=== PATIENT | female | born 2000 | race Caucasian/White ===

== ENCOUNTER 2020-09-10 08:14 | Outpatient (REF) | payer OTHER, SELFPAY | END 2020-09-10 08:15 | disposition home or self-care (01) | LOC: HO.LAB 08:14 | PROVIDERS: Visit Provider Internal Medicine | DX: Z20.828 Contact with and (suspected) exposure to other viral communicable diseases (principal) | CPT/HCPCS: 87635 ==

== ENCOUNTER 2020-09-21 20:59 | Emergency (ER) | payer OTHER, SELFPAY ==
[2020-09-21 21:03] VITALS: BP 144/89; PULSE 109; RESP 20; TEMP 36.5; O2SAT 100; BMI 51.6
--- NOTE | 2020-09-21 21:38 | PC.NURSE ---
Provider at bedside with patient for evaluation
--- NOTE | 2020-09-21 21:51 | ED.ABDPAIN ---
HPI - Abdominal Pain General Chief Complaint: Abdominal Pain Stated Complaint: Abdominal Pain Time Seen by Provider: 09/21/20 22:19 Source: patient Mode of arrival: ambulatory Limitations: no limitations History of Present Illness HPI narrative: patient presents to the ED for epigastric/right upper quadrant pain that occurred 1/2 hour ago before coming to the ED. Patient states no chest pain or shortness of breath. Patient states nausea, but no vomiting. Patient states symptoms occurred after eating Filipino fries and eggs. Patient states no lower abdominal pain, dysuria, hematuria, flank pain, fever, or chills. MD elicited complaint: abdominal pain Related Data Home Medications Medication Instructions Recorded Confirmed cholecalciferol (vitamin D3) 1 tab PO DAILY 09/21/20 09/21/20 desogestrel-ethinyl estradiol 1 tab PO DAILY 09/21/20 09/21/20 [Apri] Previous Rx's Medication Instructions Recorded alum-mag hydroxide-simeth [Maalox 10 ml PO Q6H PRN #3000 ml 09/22/20 Advanced] famotidine [Pepcid] 20 mg PO BID #20 tab 09/22/20 Allergies Allergy/AdvReac Type Severity Reaction Status Date / Time Penicillins Allergy Unknown Verified 09/21/20 21:11 Review of Systems Review of Systems Yes all other systems are reviewed and are negative Constitutional: Reports as per HPI and Reports no additional constitutional complaints Eyes: Reports as per HPI and Reports no additional eye complaints Reports system reviewed and no additional complaints, except as documented and Reports as per HPI Cardiovascular: Reports as per HPI and Reports no additional cardiovascular complaints Respiratory: Reports as per HPI and Reports no additional respiratory complaints Gastrointestinal: Reports abdominal pain and Reports nausea Genitourinary: Reports no additional female genitourinary complaints, Reports as per HPI, Denies difficulty conceiving, Denies urinary frequency, Denies difficulty voiding, Denies menorrhagia, Denies dysuria, Denies pelvic pain, Denies urinary urgency, Denies vaginal discharge and Denies vaginal dryness Musculoskeletal: Reports no additional musculoskeletal complaints and Reports as per HPI Reports system reviewed and no additional complaints, except as documented and Reports as per HPI Psychiatric: Reports no additional psychiatric complaints and Reports as per HPI Physical Exam Vital Signs: Vital Signs: Last Vital Signs Temp 97.7 F 09/21/20 21:03 Pulse 86 09/21/20 22:08 Resp 15 09/21/20 22:08 BP 126/72 09/22/20 00:00 Pulse Ox 98 09/22/20 00:00 Body Mass Index 51.6 Const: General: cooperative, healthy appearing, comfortable, no acute distress, well developed and alert Orientation/consciousness: patient oriented x3 HENMT: Head: Yes normal to inspection and Yes No palpable skull fracture present Eyes: General: appearance normal, both eyes and all related structures Visual Ribera: normal visual ribera by confrontation Neck: Neck: Yes normal visual inspection, Yes full ROM, Yes no lymphadenopathy, Yes no meningeal signs and Yes trachea midline Chest: Chest palpation & inspection: normal inspection of the chest, normal palpation of entire chest wall and no localized rib tenderness Resp: Effort & Inspection: normal respiratory effort, able to speak in complete sentences, normal respiratory pattern, no audible wheezes and no cough Auscultation: clear to auscultation bilaterally, no crackles, no rales, no rhonchi, no wheezes and breath sounds present Cardio: Jugular venous distension: no JVD Heart sounds: S1 normal heart sound present and S2 normal heart sound present GI: Inspection: Yes normal to inspection and No abdominal wall ecchymosis Palpation (GI): Tenderness to palpation present (GI) in the epigastrum and in the RUQ : General: No CVA tenderness and Yes no CVA tenderness Back/Spine/Pelvis: Back: no CVA tenderness, No CVA tenderness and No back tenderness Skin: General skin exam: no rashes or lesions noted Neuro: General: patient oriented x3, no meningeal signs and CN's II-XI intact bilaterally Cranial nerves: Yes CN's II-XII intact bilaterally Extrem: General: Yes full ROM Psych: Appearance: grossly normal and well kempt Course Course Course Narrative: history physical exam indicates GERD exacerbation possible gallstones. Patient will have labs and most likely imaging. Pending test. Reevaluation(s) Reevaluation #1: patient's labs show mild elevation in LFTs so she was sent for CT scan to rule out gallstones. Patient given GI cocktail in the meantime. Awaiting for UA results. Time: 22:01 Reevaluation #2: patient states abdominal pain resolved after receiving GI cocktail. Abdominal CT scan came back normal and negative for any acute etiology in abdomen or pelvis. Patient's UA negative for UTI. Diagnosis is GERD/gastritis. Time: 20:50 MDM - Abdominal Pain MDM Narrative Medical decision making narrative: GERD Lab Data Result diagrams: 09/21/20 22:01 09/21/20 22:01 Labs: Lab Results 09/21/20 09/21/20 09/21/20 Range/Units 22:01 22:01 22:01 WBC 11.5 H (4.8-10.8) X10*3/uL RBC 4.92 (4.20-5.50) X10*6/uL Hgb 11.8 L (12.0-16.0) g/dl Hct 39.0 (37-47) % MCV 79.3 L (80-98) fL MCH 24.0 L (27.0-33.0) pg MCHC 30.3 L (31.0-35.0) g/dl RDW 14.3 (11.0-16.0) % Plt Count 357 (160-400) X10*3/uL MPV 9.4 (9.4-12.3) fL Immature Gran % (Auto) 0.3 (0.0-0.4) % Neut % (Auto) 66.1 (45-73) % Lymph % (Auto) 27.8 (20-40) % Meagher % (Auto) 4.4 (2-11) % Eos % (Auto) 1.2 (0-4) % Baso % (Auto) 0.2 (0-2) % Lymph # (Auto) 3.2 (1.2-4.9) X10*3/uL Meagher # (Auto) 0.5 (0.1-1.2) X10*3/uL Eos # (Auto) 0.1 (0.0-0.4) X10*3/uL Baso # (Auto) 0.0 (0.0-0.2) X10*3/uL Abs Immat Gran (auto) 0.04 H (0.00-0.03) X10*3/uL Absolute Neuts (auto) 7.6 (2.0-8.3) X10*3/uL Absolute Nucleated RBC 0.000 (0.0-0.012) X10*3/uL Nucleated RBC % (auto) 0.0 (0.0-0.2) /100WBC PT 13.4 H (10.8-13.0) SEC INR 1.1 (0.9-1.1) APTT 39.7 H (24.1-38.0) SEC Sodium 140 (135-145) mmol/L Potassium 4.2 (3.3-5.1) mmol/l Chloride 102 (96-108) mmol/L Carbon Dioxide 31 H (22-29) mmol/L Anion Gap 11 L (12-20) BUN 10 (9-16) mg/dL Creatinine 0.79 (0.5-1.4) mg/dL Estim Creat Clear Calc 166.5 Estimated GFR > 60 Random Glucose 114 (60-115) mg/dL Calcium 8.9 (8.4-10.2) mg/dL Total Bilirubin 0.6 (0.0-1.0) mg/dL Direct Bilirubin 0.4 (0.0-0.5) mg/dL AST 105 H (5-31) U/L ALT 53 H (0-31) U/L Alkaline Phosphatase 123 H (39-117) U/L Total Protein 7.3 (6.5-8.0) g/dL Albumin 4.0 (3.5-5.0) g/dL Lipase 21 (8-78) U/L Beta HCG, Quant < 2 mIU/mL Urine Color Urine Appearance Urine pH (5.0-8.0) Ur Specific [place] (1.005-1.025) Urine Protein (NEG-TRACE) MG/DL Urine Glucose (UA) (NEG) MG/DL Urine Ketones (NEG) MG/DL Urine Blood (NEG) Urine Nitrite (NEG) Ur Leukocyte Esterase (NEG) 09/22/20 Range/Units 00:22 WBC (4.8-10.8) X10*3/uL RBC (4.20-5.50) X10*6/uL Hgb (12.0-16.0) g/dl Hct (37-47) % MCV (80-98) fL MCH (27.0-33.0) pg MCHC (31.0-35.0) g/dl RDW (11.0-16.0) % Plt Count (160-400) X10*3/uL MPV (9.4-12.3) fL Immature Gran % (Auto) (0.0-0.4) % Neut % (Auto) (45-73) % Lymph % (Auto) (20-40) % Meagher % (Auto) (2-11) % Eos % (Auto) (0-4) % Baso % (Auto) (0-2) % Lymph # (Auto) (1.2-4.9) X10*3/uL Meagher # (Auto) (0.1-1.2) X10*3/uL Eos # (Auto) (0.0-0.4) X10*3/uL Baso # (Auto) (0.0-0.2) X10*3/uL Abs Immat Gran (auto) (0.00-0.03) X10*3/uL Absolute Neuts (auto) (2.0-8.3) X10*3/uL Absolute Nucleated RBC (0.0-0.012) X10*3/uL Nucleated RBC % (auto) (0.0-0.2) /100WBC PT (10.8-13.0) SEC INR (0.9-1.1) APTT (24.1-38.0) SEC Sodium (135-145) mmol/L Potassium (3.3-5.1) mmol/l Chloride (96-108) mmol/L Carbon Dioxide (22-29) mmol/L Anion Gap (12-20) BUN (9-16) mg/dL Creatinine (0.5-1.4) mg/dL Estim Creat Clear Calc Estimated GFR Random Glucose (60-115) mg/dL Calcium (8.4-10.2) mg/dL Total Bilirubin (0.0-1.0) mg/dL Direct Bilirubin (0.0-0.5) mg/dL AST (5-31) U/L ALT (0-31) U/L Alkaline Phosphatase (39-117) U/L Total Protein (6.5-8.0) g/dL Albumin (3.5-5.0) g/dL Lipase (8-78) U/L Beta HCG, Quant mIU/mL Urine Color STRAW Urine Appearance CLEAR Urine pH 7.5 (5.0-8.0) Ur Specific [place] 1.010 (1.005-1.025) Urine Protein NEG (NEG-TRACE) MG/DL Urine Glucose (UA) NEG (NEG) MG/DL Urine Ketones NEG (NEG) MG/DL Urine Blood NEG (NEG) Urine Nitrite NEG (NEG) Ur Leukocyte Esterase NEG (NEG) Discharge Plan Discharge Clinical Impression: Gastroesophageal reflux disease Patient Disposition: Home, Self-Care Instructions: Gastritis (ED), Gastroesophageal Reflux Disease (ED) Additional Instructions: please return to the ED immediately for worsening abdominal pain, nausea, vomiting, fever, chills, flank pain, dysuria, hematuria, chest pain, shortness of breath, or any other concerning symptoms. Please follow-up with the PCP. Prescriptions: New famotidine [Pepcid] 20 mg tablet 20 mg PO BID Qty: 20 RF: 0 alum-mag hydroxide-simeth [Maalox Advanced] 200-200-20 mg/5 mL suspension 10 ml PO Q6H PRN (Reason: dyspepsia) Qty: 3000 RF: 0 No Action desogestrel-ethinyl estradiol [Apri] 0.15-0.03 mg tablet 1 tab PO DAILY RF: 0 cholecalciferol (vitamin D3) 50 mcg (2,000 unit) tablet 1 tab PO DAILY RF: 0 Interventions: ED Discharge Assessment Last Done: 09/22/20 01:13 Print Language: Luxembourgish [facility] Past Medical History Medical History (Updated 09/22/20 @ 01:01 by TYRA Fournier) No known health problems Social History Social History Alcohol intake: never Smoking Status: Never smoker Use of substances other than those prescribed or required for medical reasons: No Advance Directives: No
[2020-09-21 22:08] VITALS: BP 90/49; PULSE 86; RESP 15; O2SAT 98
[2020-09-21 22:08] LABS: Basophils Percent Auto 0.2 % (0-2); Eosinophils Absolute Auto 0.1 X10*3/uL (0.0-0.4); Eosinophils Percent Auto 1.2 % (0-4); Hemoglobin 11.8 g/dl (12.0-16.0); Imm Gran Abs Auto 0.04 X10*3/uL (0.00-0.03); Imm Gran Pct Auto 0.3 % (0.0-0.4); Lymphocytes Absolute Auto 3.2 X10*3/uL (1.2-4.9); Lymphocytes Percent Auto 27.8 % (20-40); MANUAL DIFF FLAG NO; Mean Corpuscular HGB Conc 30.3 g/dl (31.0-35.0); Mean Corpuscular Volume 79.3 fL (80-98); Mean Platelet Volume 9.4 fL (9.4-12.3); Monocytes Absolute Auto 0.5 X10*3/uL (0.1-1.2); Monocytes Percent Auto 4.4 % (2-11); Neutrophils Absolute Auto 7.6 X10*3/uL (2.0-8.3); Neutrophils Percent Auto 66.1 % (45-73); Platelet Count 357 X10*3/uL (160-400); Red Blood Count 4.92 X10*6/uL (4.20-5.50); Red Cell Distribution Width 14.3 % (11.0-16.0); White Blood Count 11.5 X10*3/uL (4.8-10.8)
[2020-09-21 22:13] LABS: INTERNATIONAL NORM RATIO 1.1 (0.9-1.1); Prothrombin Time 13.4 SEC (10.8-13.0)
[2020-09-21] MEDS: Magnesium Hydrox/Alum Hydrox 30 ML ORAL.SUSP PO (22:15)
[2020-09-21] MEDS: PHENobarb/Hyoscy/Atropine/Scop 10 ML ELIXIR PO (22:15)
[2020-09-21] MEDS: Lidocaine HCl Viscous 2 % 15 ML SOLUTION MUCOUS MEM (22:15)
[2020-09-21] MEDS: Famotidine/PF 20 MG/2 ML VIAL IVPUSH (22:15)
[2020-09-21 22:16] LABS: Partial Thromboplastin Time 39.7 SEC (24.1-38.0)
[2020-09-21] MEDS: ondansetron HCL 4 MG/2 ML VIAL IVPUSH (22:16)
[2020-09-21 22:36] LABS: Alanine Aminotransferase 53 U/L (0-31); Alkaline Phosphatase 123 U/L (39-117); Anion Gap 11 (12-20); Aspartate Amino Transferase 105 U/L (5-31); Bilirubin Direct 0.4 mg/dL (0.0-0.5); Bilirubin Total 0.6 mg/dL (0.0-1.0); Blood Urea Nitrogen 10 mg/dL (9-16); Calcium 8.9 mg/dL (8.4-10.2); Carbon Dioxide 31 mmol/L (22-29); Chloride 102 mmol/L (96-108); Creatinine Clr Calc Pharmacy 166.5; Estimated Glomerular Filt Rate > 60; Glucose Random 114 mg/dL (60-115); Lipase 21 U/L (8-78); Potassium 4.2 mmol/l (3.3-5.1); Sodium 140 mmol/L (135-145); Total Protein 7.3 g/dL (6.5-8.0)
[2020-09-21 22:41] LABS: HCG Quantitative < 2 mIU/mL
[2020-09-21] MEDS: 0.9 % Sodium Chloride 1,000 ML 999 ML IVCONT (22:48)
--- NOTE | 2020-09-21 23:00 | CT_ITS ---
EXAMINATION: CT ABDOMEN AND PELVIS WITH CONTRAST CLINICAL INFORMATION: Right upper quadrant pain. COMPARISON: None. TECHNIQUE: Contiguous axial thin section helical images of the abdomen and pelvis were performed following the administration of 100 mL of intravenous Omnipaque 300. The data set was reformatted in the coronal and sagittal planes and reviewed on an independent workstation. DLP: 164 mGy-cm. FINDINGS: The visualized lung bases are clear. The visualized portions of the heart are unremarkable. The liver is of normal size and attenuation without focal lesions nor intrahepatic biliary ductal dilation. A normal gallbladder is identified. There is no wall thickening or discernible pericholecystic fluid. The spleen, pancreas, adrenal glands are unremarkable. Both kidneys are of normal size and attenuation without hydronephrosis or nephrolithiasis. Following the administration of IV contrast, prompt symmetric nephrograms are displayed. There is no abdominal free fluid. There is neither mesenteric nor retroperitoneal lymphadenopathy. Normal unopacified loops of small and large bowel are identified. There is no pelvic free fluid. The urinary bladder is unremarkable. There is neither pelvic nor inguinal lymphadenopathy. Bone windows: Neither sclerotic nor lytic bone lesions are identified. CT/CT abdomen pelvis w con IMPRESSION: No evidence for acute abdominal or pelvic inflammatory or infectious processes. Automated exposure control (Care Dose) Adjustment of the mA and/or kv according to patient size (this includes techniques or standardized protocols for targeted exams where dose is matched to indication / reason for exam; i.e. extremities or head).
[2020-09-21] MEDS: iohexoL 350 MG/ML 100 ML INFUS..BTL IV (23:20)
[2020-09-22] VITALS: BP 126/72; O2SAT 98
[2020-09-22 00:29] LABS: Glucose Urine UA NEG (NEG); Leukocyte Esterase Urine NEG (NEG); Nitrite Urine NEG (NEG); PH 7.5 (5.0-8.0); Urine Blood NEG (NEG); Urine Ketones NEG (NEG); Urine Protein NEG (NEG-TRACE)
[2020-09-22 00:30] LABS: Appearance Urine CLEAR; Color Urine STRAW; UACC Culture Trigger NO
== END 2020-09-22 01:20 | disposition home or self-care (01) ==
PROVIDERS: Physician Assistant; Emergency Provider Emergency Medicine
DX: K21.9 Gastro-esophageal reflux disease without esophagitis (principal); R10.11 Right upper quadrant pain; Z79.899 Other long term (current) drug therapy
CPT/HCPCS: 36415; 74177; 80053; 80076; 81003; 82248; 83690; 84702; 85025; 85610; 85730; 96361; 96374; 96375; 99284; J2405; Q9967

== ENCOUNTER 2020-10-26 01:41 | Emergency (ER) | payer OTHER, SELFPAY ==
[2020-10-26 01:48] VITALS: BP 161/83; PULSE 99; RESP 18; O2SAT 99; BMI 46.8
--- NOTE | 2020-10-26 03:05 | ED_ITS ---
HPI - Female Genitourinary General Chief complaint: Vaginal Bleeding Stated complaint: vag bleed Time Seen by Provider: 10/26/20 03:04 Source: patient Mode of arrival: ambulatory Limitations: no limitations History of Present Illness HPI Narrative: This is a 20-year-old female who states that her menstrual cycle started approximately 3 days ago and has concerns because she states that it is much heavier than usual with a lot of large clots that has required her to use anywhere from 6-8 pads a day as well as experiencing worsening menstrual cramps over the past 24 hours prompting her to treat herself with Aleve that has had varying improvement of her symptoms. This has not been associated with any fevers, chills, nausea, vomiting, or diarrhea. Related Data Home Medications Medication Instructions Recorded Confirmed cholecalciferol (vitamin D3) 1 tab PO DAILY 09/21/20 09/21/20 desogestrel-ethinyl estradiol 1 tab PO DAILY 09/21/20 09/21/20 [Apri] Previous Rx's Medication Instructions Recorded alum-mag hydroxide-simeth [Maalox 10 ml PO Q6H PRN #3000 ml 09/22/20 Advanced] famotidine [Pepcid] 20 mg PO BID #20 tab 09/22/20 Allergies Allergy/AdvReac Type Severity Reaction Status Date / Time Penicillins Allergy Unknown Verified 10/26/20 01:52 Review of Systems Review of Systems: Pertinent positives and negatives as stated in HPI 10 point review of systems is otherwise negative. PMFSH Past Medical History Source: nursing notes reviewed Medical History No known health problems Social History Social History Alcohol intake: never Smoking Status: Never smoker Advance Directives: No Physical Exam Vital Signs: Vital Signs: Last Vital Signs Pulse 99 10/26/20 01:48 Resp 18 10/26/20 01:48 BP 161/83 H 10/26/20 01:48 Pulse Ox 99 10/26/20 01:48 Body Mass Index 46.8 VITAL SIGNS: Reviewed. GENERAL: Well developed, well nourished, in no acute distress. HEAD: Normocephalic/atraumatic, EYES: PERRLA, EOMI intact without pain, no nystagmus/pallor/icterus noted EARS: Ext canals without abnormality, TMs non-bulging and non-erythematous NOSE: Nares patent bilateral OROPHARYNX: no oral lesions noted, posterior pharynx clear and non-erythematous without noted tonsillar enlargement/erythema/exudates NECK: Supple, no adenopathy LUNGS: Normal breath sounds. No adventitious sounds or accessory muscle use. SpO2<99> CARDIOVASCULAR: Regular rate and rhythm without noted murmurs, no JVD or lower extremity edema. ABDOMEN: Obese, Soft, non-tender, non-distended with bowel sounds. No rigidity. No guarding. No palpable masses or hernias noted MUSCULOSKELETAL: No tenderness, deformities, or effusions noted on gross inspection. EXTREMITIES: No cyanosis, clubbing or edema. SKIN: Inspection of the skin reveals no rashes, ulcerations, jaundice, pallor, or petechiae. NEUROLOGIC: Alert and oriented x 4. Strength and sensation to light touch were grossly intact x 4. Course Course Course Narrative: This is a 20-year-old female with history and clinical presentation suggestive of possible menstrual related cramps with normal variation in menstrual bleeding, but will rule out UTI and as well as offering combination analgesics for symptom relief. On review urinalysis there is no evidence of UTI and the blood in the urine is secondary to menstrual bleeding and urine test is negative. On further questioning patient states that she recently restarted her oral contraceptive and it was explained to her that this is likely the reason for her heavier than usual menstrual bleeding. She states her pain has almost completely resolved and she feels much better. MDM - Female Genitourinary Lab Data Labs: Lab Results 10/26/20 Range/Units 03:02 Urine Color BRANDON Urine Appearance CLOUDY Urine pH 5.0 (5.0-8.0) Ur Specific [place] >= 1.030 H (1.005-1.025) Urine Protein 2+ H (NEG-TRACE) MG/DL Urine Glucose (UA) NEG (NEG) MG/DL Urine Ketones NEG (NEG) MG/DL Urine Blood 3+ H (NEG) Urine Nitrite NEG (NEG) Ur Leukocyte Esterase NEG (NEG) Urine RBC 76-150 H (0) /HPF Urine WBC 1-4 (0-4) /HPF Ur Squamous Epith Cells 1+ /LPF Calcium Oxalate Crystal 2+ /LPF Urine Bacteria 1+ /LPF Urine Mucus 1+ /LPF Urine Test NEGATIVE (NEGATIVE) Discharge Plan Discharge Clinical Impression: Dysfunctional uterine bleeding Patient Disposition: Home, Self-Care Instructions: Dysfunctional Uterine Bleeding (ED) Additional Instructions: 1. Tylenol 1000 mg, orally, every 6 hours as needed for pain control. Do not exceed 4000 mg within 24 hours. 2. Ibuprofen 400 mg, orally with milk or food, every 6 hours as needed for pain control. 3. You may use a heating pad additionally for symptom control. 4. Increase fluid hydration especially with water. 5. Please follow-up with your primary care provider by calling the office in the morning for re-evaluation and further outpatient management. Prescriptions: No Action desogestrel-ethinyl estradiol [Apri] 0.15-0.03 mg tablet 1 tab PO DAILY RF: 0 cholecalciferol (vitamin D3) 50 mcg (2,000 unit) tablet 1 tab PO DAILY RF: 0 famotidine [Pepcid] 20 mg tablet 20 mg PO BID Qty: 20 RF: 0 alum-mag hydroxide-simeth [Maalox Advanced] 200-200-20 mg/5 mL suspension 10 ml PO Q6H PRN (Reason: dyspepsia) Qty: 3000 RF: 0 Referrals: [facility] [Primary Care Provider] - 2 days (Re-evaluation outpatient management of heavy menstrual bleeding.)
[2020-10-26 03:10] LABS: Appearance Urine CLOUDY; Color Urine AMBER; Glucose Urine UA NEG (NEG); Leukocyte Esterase Urine NEG (NEG); Nitrite Urine NEG (NEG); Specific Gravity - Urine >= 1.030 (1.005-1.025); Urine Blood 3+ (NEG); Urine Ketones NEG (NEG); Urine Protein 2+ MG/DL (NEG-TRACE)
[2020-10-26 03:11] LABS: UPreg QC Valid YES; Urine Pregnancy NEGATIVE (NEGATIVE)
[2020-10-26 03:16] LABS: Bacteria Urine 1+ /LPF; Mucus Urine 1+ /LPF; Squamous Epithelial Cell Urine 1+ /LPF
[2020-10-26 03:17] LABS: Calcium Oxalate Crystals Urine 2+ /LPF
[2020-10-26] MEDS: Acetaminophen 325 MG TABLET 975 MG PO (03:37)
[2020-10-26] MEDS: Ketorolac Tromethamine 15 MG/ML VIAL IM (03:38)
== END 2020-10-26 04:45 | disposition home or self-care (01) ==
PROVIDERS: Emergency Provider Student in an Organized Health Care Education/Training Program
DX: N93.8 Other specified abnormal uterine and vaginal bleeding (principal)
CPT/HCPCS: 81001; 81025; 96372; 99283; 99284; J1885

== ENCOUNTER 2020-10-29 21:56 | Emergency (ER) | payer OTHER, SELFPAY ==
[2020-10-29 21:59] VITALS: BP 159/94; PULSE 89; RESP 15; TEMP 36.4; O2SAT 99; BMI 48.2
--- NOTE | 2020-10-29 22:50 | ED_ITS ---
HPI - Nausea/Vomiting/Diarrhea General Chief complaint: Nausea/Vomiting/Diarrhea Stated complaint: Vomiting Time Seen by Provider: 10/29/20 21:57 Source: patient Mode of arrival: ambulatory Limitations: no limitations History of Present Illness HPI Narrative: This is a 20-year-old female who presents with onset of nausea and vomiting today not associated with any fever, chills, diarrhea, urinary pain/burning/frequency. And she states she was evaluated at [facility] earlier in the day where she received antiemetics but no IV fluids and lab work was completed there that time. She states she was able to warp picker the prescription that she was provided for Reglan but was unable to take the medication because she was ?so nauseous?. She denies any abdominal discomfort. Related Data Home Medications Medication Instructions Recorded Confirmed cholecalciferol (vitamin D3) 1 tab PO DAILY 09/21/20 10/29/20 desogestrel-ethinyl estradiol 1 tab PO DAILY 09/21/20 10/29/20 [Apri] Previous Rx's Medication Instructions Recorded famotidine [Pepcid] 20 mg PO BID #20 tab 09/22/20 omeprazole 40 mg PO BID 30 Days #60 cap 10/29/20 Allergies Allergy/AdvReac Type Severity Reaction Status Date / Time Penicillins Allergy Unknown Verified 10/26/20 01:52 Review of Systems Review of Systems: For note positives and negatives as stated in HPI 10 point review of systems otherwise negative. [facility] Past Medical History Source: nursing notes reviewed Medical History No known health problems Social History Social History Alcohol intake: never Smoking Status: Never smoker Advance Directives: No Physical Exam Vital Signs: Vital Signs: Last Vital Signs Temp 97.6 F 10/29/20 21:59 Pulse 89 10/29/20 21:59 Resp 15 10/29/20 21:59 BP 159/94 H 10/29/20 21:59 Pulse Ox 99 10/29/20 21:59 Body Mass Index 48.2 VITAL SIGNS: Reviewed. GENERAL: Well developed, well nourished, in no acute distress. HEAD: Normocephalic/atraumatic, EYES: PERRLA, EOMI intact without pain, no nystagmus/pallor/icterus noted EARS: Ext canals without abnormality, TMs non-bulging and non-erythematous NOSE: Nares patent bilateral OROPHARYNX: no oral lesions noted, posterior pharynx clear and non-erythematous without noted tonsillar enlargement/erythema/exudates NECK: Supple, no adenopathy LUNGS: Normal breath sounds. No adventitious sounds or accessory muscle use. SpO2<99> CARDIOVASCULAR: Regular rate and rhythm without noted murmurs, no JVD or lower extremity edema. ABDOMEN: Soft, non-tender, non-distended with bowel sounds. No rigidity. No gua rding. No palpable masses or hernias noted MUSCULOSKELETAL: No tenderness, deformities, or effusions noted on gross inspection. EXTREMITIES: No cyanosis, clubbing or edema. SKIN: Inspection of the skin reveals no rashes, ulcerations, jaundice, pallor, or petechiae. NEUROLOGIC: Alert and oriented x 4. Strength and sensation to light touch were grossly intact x 4. Course Course Course Narrative: Is a 20-year-old female with history and clinical presentation most consistent with likely nausea and vomiting associated with gastritis and NSAID use. On record request from [facility] and review of lab work there there were no acute findings today to include negative urinalysis and urine . Patient improved after receiving sublingual Zofran as well as a GI cocktail. She was provided a p.o. challenge which she successfully completed. All results and findings as well as the plan was discussed with the patient at bedside. Discharge Plan Discharge Clinical Impression: Gastritis Qualifiers: Gastritis type: other gastritis Chronicity: chronic Gastritis bleeding: without bleeding Qualified Code(s): K29.50 - Unspecified chronic gastritis without bleeding Acid reflux Qualifiers: Esophagitis presence: without esophagitis Qualified Code(s): K21.9 - Gastro- esophageal reflux disease without esophagitis Patient Disposition: Home, Self-Care Instructions: Gastritis (ED), Diet for Stomach Ulcers and Gastritis (ED) Additional Instructions: 1. Stop Pepcid/Famotidine 2. Stop Ibuprofen, Motrin, Aleve 3. Increase fluid hydration, especially with water Prescriptions: New omeprazole 40 mg capsule,delayed release(DR/EC) 40 mg PO BID 30 Days Qty: 60 RF: 0 No Action desogestrel-ethinyl estradiol [Apri] 0.15-0.03 mg tablet 1 tab PO DAILY RF: 0 cholecalciferol (vitamin D3) 50 mcg (2,000 unit) tablet 1 tab PO DAILY RF: 0 famotidine [Pepcid] 20 mg tablet 20 mg PO BID Qty: 20 RF: 0
[2020-10-29] MEDS: Magnesium Hydrox/Alum Hydrox 30 ML ORAL.SUSP PO (23:36)
[2020-10-29] MEDS: Lidocaine HCl Viscous 2 % 15 ML SOLUTION 10 ML MUCOUS MEM (23:36)
[2020-10-30] VITALS: BP 140/82; PULSE 80; RESP 16; TEMP 36.7; O2SAT 99
== END 2020-10-30 00:57 | disposition home or self-care (01) ==
PROVIDERS: Emergency Provider Student in an Organized Health Care Education/Training Program
DX: K29.50 Unspecified chronic gastritis without bleeding (principal); K21.9 Gastro-esophageal reflux disease without esophagitis; R11.2 Nausea with vomiting, unspecified; Z79.899 Other long term (current) drug therapy
CPT/HCPCS: 99284

== ENCOUNTER 2021-04-16 15:30 | Outpatient (REF) | payer OTHER, SELFPAY ==
--- NOTE | ~2021-04-16 | US_ITS ---
EXAMINATION:US pelvic limited, patient declined transvaginal exam. CLINICAL INFORMATION: Reason for Exam OLIGOMENORRHEA COMPARISON: No priors available. LMP: 11/01/2020 FINDINGS: UTERUS: The uterus is anteverted. Size: 5.6 x 2.4 x 4.2 cm. Uterine mass: There is no uterine mass. Cervix: Grossly unremarkable. Endometrium: Endometrium was not well visualized transabdominally. ADNEXA: Normal Right ovary: Normal in size. Left ovary: Normal in size. Doppler exam: Normal Doppler flow identified in both ovaries. FREE FLUID: Trace amount of free fluid. OTHER FINDINGS: None US/US pelvic limited IMPRESSION: Study limited by patient's body habitus, patient declined transvaginal ultrasound. Endometrium not well visualized. Exam otherwise normal.
== END 2021-04-16 15:31 | disposition home or self-care (01) ==
LOC: HO.HMGCX 15:30
PROVIDERS: Visit Provider Nurse Practitioner Family
DX: N91.5 Oligomenorrhea, unspecified (principal)
CPT/HCPCS: 76857

== ENCOUNTER 2021-05-21 14:42 | Emergency (ER) | payer OTHER, SELFPAY ==
--- NOTE | ~2021-05-21 | XR_ITS ---
EXAMINATION: XR CHEST CLINICAL INFORMATION: Lightheadedness COMPARISON: None TECHNIQUE: Portable upright AP view of the chest was obtained. FINDINGS: There are low lung volumes with inspiration to only the right posterior seventh rib. The lungs are grossly clear. The vascularity is normal. There is no pneumothorax or lobar segmental airspace consolidation. No effusion. Heart is normal in size. The hilar and mediastinal contours are normal. XR/XR chest 1V IMPRESSION: Low lung volumes. Lungs grossly clear.
[2021-05-21 15:05] VITALS: BP 136/72; PULSE 98; RESP 16; TEMP 36.6; O2SAT 98; BMI 61.3
--- NOTE | 2021-05-21 16:26 | ECG_ITS ---
Test Reason : DIZZINESS Blood Pressure : / mmHG Vent. Rate : 085 BPM Atrial Rate : 085 BPM P-R Int : 150 ms QRS Dur : 076 ms QT Int : 348 ms P-R-T Axes : 021 032 019 degrees QTc Int : 414 ms Normal sinus rhythm Normal ECG When compared with ECG of 15-FEB-2020 01:19, No significant change was found Referred By: Missy Raymond Electronically Signed By:PETR JEAN
[2021-05-21 16:35] VITALS: BP 126/78; PULSE 86
[2021-05-21 16:36] VITALS: BP 137/77; PULSE 96
[2021-05-21 16:37] VITALS: BP 128/77; PULSE 101
[2021-05-21 16:38] VITALS: BP 128/77; PULSE 93; RESP 16; TEMP 36.6; O2SAT 99
--- NOTE | 2021-05-21 16:41 | ED.DIZZY ---
HPI - Dizziness General Chief Complaint: Dizziness <TYRA Moreno - Last Filed: 05/21/21 18:31> Stated Complaint: dizziness <TYRA Moreno Last Filed: 05/21/21 18:31> Time Seen by Provider: 05/21/21 16:10 <TYRA Moreno - Last Filed: 05/21/21 18:31> Source: patient <TYRA Moreno Last Filed: 05/21/21 18:31> Mode of arrival: ambulatory <TYRA Moreno Last Filed: 05/21/21 18:31> History of Present Illness HPI Narrative: 21-year-old female with no significant past medical history to the ED complaining of generalized fatigue/lightheadedness x3 days. Reports 1st day with CP, headache, and chills described as an anxiety/panic attack which has since resolved, now described as not feeling right . Denies room spinning dizziness or syncope. Denies headache, visual loss, CP/SOB, abdominal pain, nausea/vomiting, numbness/tingling, recent travel, sick contacts. Admits took at home tests yesterday which is negative <TYRA Moreno - Last Filed: 05/21/21 18:31> MD elicited complaint: lightheadedness <TYRA Moreno Last Filed: 05/21/21 18:31> Related Data Home Medications: Home Medications Medication Instructions Recorded Confirmed cholecalciferol (vitamin D3) 1 tab PO DAILY 09/21/20 10/29/20 desogestrel-ethinyl estradiol 1 tab PO DAILY 09/21/20 10/29/20 [Apri] Previous Rx's Medication Instructions Recorded famotidine [Pepcid] 20 mg PO BID #20 tab 09/22/20 omeprazole 40 mg PO BID 30 Days #60 cap 10/29/20 <TYRA Moreno Last Filed: 05/21/21 18:31> Allergies/Adverse Reactions: Allergies Allergy/AdvReac Type Severity Reaction Status Date / Time Penicillins Allergy Unknown Verified 05/21/21 15:09 <TYRA Moreno Last Filed: 05/21/21 18:31> Review of Systems Review of Systems: Constitutional: No Fever, + Chills(reolved), + Fatigue, No Malaise ENT/Mouth: +No Ear Pain, No Nasal Congestion, +No sore throat, No Rhinorrhea Eyes: No Eye Pain, No Vision Changes Cardiovascular: + Chest Pain (resolved), No SOB Respiratory: No Cough, No Dyspnea Gastrointestinal: No Nausea, No Vomiting, No Diarrhea, No Constipation, No Abdominal pain Genitourinary: No Dysuria, No Urinary Frequency, No Hematuria Musculoskeletal: No joint pain, No Myalgias, No Joint Swelling Skin: No Skin Lesions, No rash Neuro: No Weakness, No Numbness, No Paresthesias, No Loss of Consciousness, + lightheadedness, + Headache (resolved) <TYRA Moreno - Last Filed: 05/21/21 18:31> Yes all other systems are reviewed and are negative <TYRA Moreno - Last Filed: 05/21/21 18:31> Neurologic: Denies Abnormal speech present <TYRA Moreno - Last Filed: 05/21/21 18:31> FOR[facility]LY [facility] Past Medical History Attestation statement: The following information was validated with the patient. <TYRA Moreno - Last Filed: 05/21/21 18:31> Medical History: Medical History No known health problems <TYRA Moreno - Last Filed: 05/21/21 18:31> Social History Social History: Social History Alcohol intake: never Patient Tobacco Use Status: Never used Tobacco Use of substances other than those prescribed or required for medical reasons: No Advance Directives: Yes Advance Directives Information Provided: Yes Advance Directives on File: No Patient : No <TYRA Moreno - Last Filed: 05/21/21 18:31> Physical Exam Vital Signs: Vital Signs: Last Vital Signs Temp 97.9 F 05/21/21 16:38 Pulse 93 05/21/21 16:38 Resp 16 05/21/21 16:38 BP 128/77 05/21/21 16:38 Pulse Ox 99 05/21/21 16:38 Body Mass Index 61.3 <TYRA Moreno - Last Filed: 05/21/21 18:31> Vital Signs: Last Vital Signs Temp 97.9 F 05/21/21 16:38 Pulse 93 05/21/21 16:38 Resp 16 05/21/21 16:38 BP 128/77 05/21/21 16:38 Pulse Ox 99 05/21/21 16:38 Body Mass Index 61.3 <Jim Johnston MD - Last Filed: 05/22/21 02:00> Const: General: cooperative, healthy appearing and no acute distress <TYRA Moreno - Last Filed: 05/21/21 18:31> Orientation/consciousness: patient oriented x3 <TYRA Moreno - Last Filed: 05/21/21 18:31> Limitations: no limitations <TYRA Moreno - Last Filed: 05/21/21 18:31> HENMT: Head: Yes normal to inspection <TYRA Moreno - Last Filed: 05/21/21 18:31> Ears: hearing grossly normal bilaterally <TYRA Moreno - Last Filed: 05/21/21 18:31> General nose exam: Normal external nose present <TYRA Moreno - Last Filed: 05/21/21 18:31> Face and sinus: Yes normal facial exam <TYRA Moreno - Last Filed: 05/21/21 18:31> Eyes: General: appearance normal, both eyes and all related structures <TYRA Moreno - Last Filed: 05/21/21 18:31> EOM: EOMs intact bilaterally <TYRA Moreno - Last Filed: 05/21/21 18:31> Neck: Neck: Yes normal visual inspection and Yes no meningeal signs <TYRA Moreno - Last Filed: 05/21/21 18:31> Resp: Effort & Inspection: normal respiratory effort <TYRA Moreno - Last Filed: 05/21/21 18:31> Auscultation: clear to auscultation bilaterally, no rales, no rhonchi and no wheezes <TYRA Moreno - Last Filed: 05/21/21 18:31> Cardio: Rate: regular rate <TYRA Moreno - Last Filed: 05/21/21 18:31> Heart sounds: S1 normal heart sound present and S2 normal heart sound present <Missy Raymond PA - Last Filed: 05/21/21 18:31> GI: Inspection: Yes normal to inspection <Missy Raymond PA - Last Filed: 05/21/21 18:31> Palpation (GI): Soft to palpation, nontender, no guarding and not rigid <Missy Raymond PA - Last Filed: 05/21/21 18:31> Skin: Rashes: no rashes <Missy Segundo PA - Last Filed: 05/21/21 18:31> Wounds: no wounds <Missy Raymond, PA - Last Filed: 05/21/21 18:31> Neuro: General: patient oriented x3, gait normal, tone normal, moves all extremities, no meningeal signs, no focal motor deficits and CN's II-XI intact bilaterally <Missy Raymond PA - Last Filed: 05/21/21 18:31> Cranial nerves: Yes CN's II-XII intact bilaterally <Missy Segundo PA - Last Filed: 05/21/21 18:31> Cognition (Neuro): normal cognition <Missy Raymond PA - Last Filed: 05/21/21 18:31> Speech: No Abnormal speech present <Missy Clarkrosemary PA - Last Filed: 05/21/21 18:31> Gait exam (Neuro): Normal gait present <Missy Raymond PA - Last Filed: 05/21/21 18:31> Motor exam (neuro): 5/5 motor strength present throughout and Pronator motor function not present <Missy Segundo PA - Last Filed: 05/21/21 18:31> Coordination: [id number] test normal <Missy Segundo PA - Last Filed: 05/21/21 18:31> Romberg Test: Negative <Missy Segundo PA - Last Filed: 05/21/21 18:31> Extrem: General: Yes normal to inspection <Missy Segundo PA - Last Filed: 05/21/21 18:31> Course Course Course Narrative: -mild leukocytosis of 11.6, H&H at baseline, labs otherwise unremarkable including troponin -UA negative XR chest 1V IMPRESSION: Low lung volumes. Lungs grossly clear. -orthostatic vital signs negative >> results discussed with patient including worrisome signs and symptoms and strict return precautions, she verbalized understanding feel safe for discharge home to follow-up with PCP <TYRA Moreno - Last Filed: 05/21/21 18:31> MDM - Dizziness MDM Narrative Medical decision making narrative: 21-year-old female with no significant past medical history to the ED complaining of generalized fatigue/lightheadedness x3 days. Reports 1st day with CP, headache, and chills described as an anxiety/panic attack which has since resolved, now described as not feeling right . On exam VSS, NAD/nontoxic appearing, no focal neuro deficits. Concern for metabolic abnormalities vs dehydration. Rule out infectious etiology. Symptoms atypical for ACS/PE or CVT or BPPV. Plan: EKG, labs, UA, CXR, IVF, symptomatic treatment, reassess <TYRA Moreno - Last Filed: 05/21/21 18:31> Medical Records Attestation: I reviewed the patient's medical records. <TYRA Moreno - Last Filed: 05/21/21 18:31> Lab Data Attestation: I reviewed the patient's lab results. <TYRA Moreno - Last Filed: 05/21/21 18:31> Result diagrams: : 05/21/21 16:52 05/21/21 16:52 <TYRA Moreno - Last Filed: 05/21/21 18:31> Labs: Lab Results 05/21/21 05/21/21 05/21/21 Range/Units 16:48 16:49 16:49 WBC (4.8-10.8) X10*3/uL RBC (4.20-5.50) X10*6/uL Hgb (12.0-16.0) g/dl Hct (37-47) % MCV (80-98) fL MCH (27.0-33.0) pg MCHC (31.0-35.0) g/dl RDW (11.0-16.0) % Plt Count (160-400) X10*3/uL MPV (9.4-12.3) fL Immature Gran % (Auto) (0.0-0.4) % Neut % (Auto) (45-73) % Lymph % (Auto) (20-40) % Fann[place] % (Auto) (2-11) % Eos % (Auto) (0-4) % Baso % (Auto) (0-2) % Lymph # (Auto) (1.2-4.9) X10*3/uL [place] # (Auto) (0.1-1.2) X10*3/uL Eos # (Auto) (0.0-0.4) X10*3/uL Baso # (Auto) (0.0-0.2) X10*3/uL Abs Immat Gran (auto) (0.00-0.03) X10*3/uL Absolute Neuts (auto) (2.0-8.3) X10*3/uL Absolute Nucleated RBC (0.0-0.012) X10*3/uL Nucleated RBC % (auto) (0.0-0.2) /100WBC Sodium (135-145) mmol/L Potassium (3.3-5.1) mmol/L Chloride (96-108) mmol/L Carbon Dioxide (22-29) mmol/L Anion Gap (12-20) BUN (9-16) mg/dL Creatinine (0.5-1.4) mg/dL Estim Creat Clear Calc Estimated GFR Random Glucose (60-115) mg/dL Calcium (8.4-10.2) mg/dL Magnesium (1.6-2.6) mg/dL Total Bilirubin (0.0-1.0) mg/dL Direct Bilirubin (0.0-0.5) mg/dL AST (5-31) U/L ALT (0-31) U/L Alkaline Phosphatase (39-117) U/L Troponin I High Sens (<3.5-17.0) ng/L Total Protein (6.5-8.0) g/dL Albumin (3.5-5.0) g/dL Urine Color YELLOW Urine Appearance HAZY Urine pH 6.0 (5.0-8.0) Ur Specific [place] 1.025 (1.005-1.025) Urine Protein NEG (NEG-TRACE) MG/DL Urine Glucose (UA) NEG (NEG) MG/DL Urine Ketones NEG (NEG) MG/DL Urine Blood NEG (NEG) Urine Nitrite NEG (NEG) Ur Leukocyte Esterase NEG (NEG) Urine Test NEGATIVE (NEGATIVE) Urine Opiates Screen Not Detected (Not Detect) Ur Barbiturates Screen Not Detected (Not Detect) Ur Phencyclidine Scrn Not Detected (Not Detect) Ur Amphetamines Screen Not Detected (Not Detect) U Benzodiazepines Scrn Not Detected (Not Detect) Urine Cocaine Screen Not Detected (Not Detect) U Marijuana (THC) Screen Not Detected (Not Detect) COVID-19 (RACHAEL) (Negative) COVID-19 Clin Com 05/21/21 05/21/21 05/21/21 Range/Units 16:52 16:52 16:52 WBC 11.6 H (4.8-10.8) X10*3/uL RBC 4.88 (4.20-5.50) X10*6/uL Hgb 11.1 L (12.0-16.0) g/dl Hct 36.3 L (37-47) % MCV 74.4 L (80-98) fL MCH 22.7 L (27.0-33.0) pg MCHC 30.6 L (31.0-35.0) g/dl RDW 15.6 (11.0-16.0) % Plt Count 367 (160-400) X10*3/uL MPV 9.1 L (9.4-12.3) fL Immature Gran % (Auto) 0.3 (0.0-0.4) % Neut % (Auto) 73.6 H (45-73) % Lymph % (Auto) 21.0 (20-40) % Fannin % (Auto) 3.8 (2-11) % Eos % (Auto) 1.1 (0-4) % Baso % (Auto) 0.2 (0-2) % Lymph # (Auto) 2.4 (1.2-4.9) X10*3/uL Fannin # (Auto) 0.4 (0.1-1.2) X10*3/uL Eos # (Auto) 0.1 (0.0-0.4) X10*3/uL Baso # (Auto) 0.0 (0.0-0.2) X10*3/uL Abs Immat Gran (auto) 0.04 H (0.00-0.03) X10*3/uL Absolute Neuts (auto) 8.6 H (2.0-8.3) X10*3/uL Absolute Nucleated RBC 0.000 (0.0-0.012) X10*3/uL Nucleated RBC % (auto) 0.0 (0.0-0.2) /100WBC Sodium 138 (135-145) mmol/L Potassium 4.1 (3.3-5.1) mmol/L Chloride 104 (96-108) mmol/L Carbon Dioxide 26 (22-29) mmol/L Anion Gap 12 (12-20) BUN 9 (9-16) mg/dL Creatinine 0.75 (0.5-1.4) mg/dL Estim Creat Clear Calc 194.1 Estimated GFR > 60 Random Glucose 96 (60-115) mg/dL Calcium 9.4 (8.4-10.2) mg/dL Magnesium 2.0 (1.6-2.6) mg/dL Total Bilirubin 0.3 (0.0-1.0) mg/dL Direct Bilirubin < 0.2 (0.0-0.5) mg/dL AST 15 D (5-31) U/L ALT 19 (0-31) U/L Alkaline Phosphatase 112 (39-117) U/L Troponin I High Sens < 3.5 (<3.5-17.0) ng/L Total Protein 7.4 (6.5-8.0) g/dL Albumin 4.0 (3.5-5.0) g/dL Urine Color Urine Appearance Urine pH (5.0-8.0) Ur Specific [place] (1.005-1.025) Urine Protein (NEG-TRACE) MG/DL Urine Glucose (UA) (NEG) MG/DL Urine Ketones (NEG) MG/DL Urine Blood (NEG) Urine Nitrite (NEG) Ur Leukocyte Esterase (NEG) Urine Test (NEGATIVE) Urine Opiates Screen (Not Detect) Ur Barbiturates Screen (Not Detect) Ur Phencyclidine Scrn (Not Detect) Ur Amphetamines Screen (Not Detect) U Benzodiazepines Scrn (Not Detect) Urine Cocaine Screen (Not Detect) U Marijuana (THC) Screen (Not Detect) COVID-19 (RACHAEL) (Negative) COVID-19 Clin Com 05/21/21 Range/Units 16:53 WBC (4.8-10.8) X10*3/uL RBC (4.20-5.50) X10*6/uL Hgb (12.0-16.0) g/dl Hct (37-47) % MCV (80-98) fL MCH (27.0-33.0) pg MCHC (31.0-35.0) g/dl RDW (11.0-16.0) % Plt Count (160-400) X10*3/uL MPV (9.4-12.3) fL Immature Gran % (Auto) (0.0-0.4) % Neut % (Auto) (45-73) % Lymph % (Auto) (20-40) % Fannin % (Auto) (2-11) % Eos % (Auto) (0-4) % Baso % (Auto) (0-2) % Lymph # (Auto) (1.2-4.9) X10*3/uL Fannin # (Auto) (0.1-1.2) X10*3/uL Eos # (Auto) (0.0-0.4) X10*3/uL Baso # (Auto) (0.0-0.2) X10*3/uL Abs Immat Gran (auto) (0.00-0.03) X10*3/uL Absolute Neuts (auto) (2.0-8.3) X10*3/uL Absolute Nucleated RBC (0.0-0.012) X10*3/uL Nucleated RBC % (auto) (0.0-0.2) /100WBC Sodium (135-145) mmol/L Potassium (3.3-5.1) mmol/L Chloride (96-108) mmol/L Carbon Dioxide (22-29) mmol/L Anion Gap (12-20) BUN (9-16) mg/dL Creatinine (0.5-1.4) mg/dL Estim Creat Clear Calc Estimated GFR Random Glucose (60-115) mg/dL Calcium (8.4-10.2) mg/dL Magnesium (1.6-2.6) mg/dL Total Bilirubin (0.0-1.0) mg/dL Direct Bilirubin (0.0-0.5) mg/dL AST (5-31) U/L ALT (0-31) U/L Alkaline Phosphatase (39-117) U/L Troponin I High Sens (<3.5-17.0) ng/L Total Protein (6.5-8.0) g/dL Albumin (3.5-5.0) g/dL Urine Color Urine Appearance Urine pH (5.0-8.0) Ur Specific [place] (1.005-1.025) Urine Protein (NEG-TRACE) MG/DL Urine Glucose (UA) (NEG) MG/DL Urine Ketones (NEG) MG/DL Urine Blood (NEG) Urine Nitrite (NEG) Ur Leukocyte Esterase (NEG) Urine Test (NEGATIVE) Urine Opiates Screen (Not Detect) Ur Barbiturates Screen (Not Detect) Ur Phencyclidine Scrn (Not Detect) Ur Amphetamines Screen (Not Detect) U Benzodiazepines Scrn (Not Detect) Urine Cocaine Screen (Not Detect) U Marijuana (THC) Screen (Not Detect) COVID-19 (RACHAEL) Negative (Negative) COVID-19 Clin Com See Note <TYRA Moreno - Last Filed: 05/21/21 18:31> Lab Results 05/21/21 05/21/21 05/21/21 Range/Units 16:48 16:49 16:49 WBC (4.8-10.8) X10*3/uL RBC (4.20-5.50) X10*6/uL Hgb (12.0-16.0) g/dl Hct (37-47) % MCV (80-98) fL MCH (27.0-33.0) pg MCHC (31.0-35.0) g/dl RDW (11.0-16.0) % Plt Count (160-400) X10*3/uL MPV (9.4-12.3) fL Immature Gran % (Auto) (0.0-0.4) % Neut % (Auto) (45-73) % Lymph % (Auto) (20-40) % Fannin % (Auto) (2-11) % Eos % (Auto) (0-4) % Baso % (Auto) (0-2) % Lymph # (Auto) (1.2-4.9) X10*3/uL Fannin # (Auto) (0.1-1.2) X10*3/uL Eos # (Auto) (0.0-0.4) X10*3/uL Baso # (Auto) (0.0-0.2) X10*3/uL Abs Immat Gran (auto) (0.00-0.03) X10*3/uL Absolute Neuts (auto) (2.0-8.3) X10*3/uL Absolute Nucleated RBC (0.0-0.012) X10*3/uL Nucleated RBC % (auto) (0.0-0.2) /100WBC Sodium (135-145) mmol/L Potassium (3.3-5.1) mmol/L Chloride (96-108) mmol/L Carbon Dioxide (22-29) mmol/L Anion Gap (12-20) BUN (9-16) mg/dL Creatinine (0.5-1.4) mg/dL Estim Creat Clear Calc Estimated GFR Random Glucose (60-115) mg/dL Calcium (8.4-10.2) mg/dL Magnesium (1.6-2.6) mg/dL Total Bilirubin (0.0-1.0) mg/dL Direct Bilirubin (0.0-0.5) mg/dL AST (5-31) U/L ALT (0-31) U/L Alkaline Phosphatase (39-117) U/L Troponin I High Sens (<3.5-17.0) ng/L Total Protein (6.5-8.0) g/dL Albumin (3.5-5.0) g/dL Urine Color YELLOW Urine Appearance HAZY Urine pH 6.0 (5.0-8.0) Ur Specific [place] 1.025 (1.005-1.025) Urine Protein NEG (NEG-TRACE) MG/DL Urine Glucose (UA) NEG (NEG) MG/DL Urine Ketones NEG (NEG) MG/DL Urine Blood NEG (NEG) Urine Nitrite NEG (NEG) Ur Leukocyte Esterase NEG (NEG) Urine Test NEGATIVE (NEGATIVE) Urine Opiates Screen Not Detected (Not Detect) Ur Barbiturates Screen Not Detected (Not Detect) Ur Phencyclidine Scrn Not Detected (Not Detect) Ur Amphetamines Screen Not Detected (Not Detect) U Benzodiazepines Scrn Not Detected (Not Detect) Urine Cocaine Screen Not Detected (Not Detect) U Marijuana (THC) Screen Not Detected (Not Detect) COVID-19 (RACHAEL) (Negative) COVID-19 Clin Com 05/21/21 05/21/21 05/21/21 Range/Units 16:52 16:52 16:52 WBC 11.6 H (4.8-10.8) X10*3/uL RBC 4.88 (4.20-5.50) X10*6/uL Hgb 11.1 L (12.0-16.0) g/dl Hct 36.3 L (37-47) % MCV 74.4 L (80-98) fL MCH 22.7 L (27.0-33.0) pg MCHC 30.6 L (31.0-35.0) g/dl RDW 15.6 (11.0-16.0) % Plt Count 367 (160-400) X10*3/uL MPV 9.1 L (9.4-12.3) fL Immature Gran % (Auto) 0.3 (0.0-0.4) % Neut % (Auto) 73.6 H (45-73) % Lymph % (Auto) 21.0 (20-40) % Fannin % (Auto) 3.8 (2-11) % Eos % (Auto) 1.1 (0-4) % Baso % (Auto) 0.2 (0-2) % Lymph # (Auto) 2.4 (1.2-4.9) X10*3/uL Fannin # (Auto) 0.4 (0.1-1.2) X10*3/uL Eos # (Auto) 0.1 (0.0-0.4) X10*3/uL Baso # (Auto) 0.0 (0.0-0.2) X10*3/uL Abs Immat Gran (auto) 0.04 H (0.00-0.03) X10*3/uL Absolute Neuts (auto) 8.6 H (2.0-8.3) X10*3/uL Absolute Nucleated RBC 0.000 (0.0-0.012) X10*3/uL Nucleated RBC % (auto) 0.0 (0.0-0.2) /100WBC Sodium 138 (135-145) mmol/L Potassium 4.1 (3.3-5.1) mmol/L Chloride 104 (96-108) mmol/L Carbon Dioxide 26 (22-29) mmol/L Anion Gap 12 (12-20) BUN 9 (9-16) mg/dL Creatinine 0.75 (0.5-1.4) mg/dL Estim Creat Clear Calc 194.1 Estimated GFR > 60 Random Glucose 96 (60-115) mg/dL Calcium 9.4 (8.4-10.2) mg/dL Magnesium 2.0 (1.6-2.6) mg/dL Total Bilirubin 0.3 (0.0-1.0) mg/dL Direct Bilirubin < 0.2 (0.0-0.5) mg/dL AST 15 D (5-31) U/L ALT 19 (0-31) U/L Alkaline Phosphatase 112 (39-117) U/L Troponin I High Sens < 3.5 (<3.5-17.0) ng/L Total Protein 7.4 (6.5-8.0) g/dL Albumin 4.0 (3.5-5.0) g/dL Urine Color Urine Appearance Urine pH (5.0-8.0) Ur Specific [place] (1.005-1.025) Urine Protein (NEG-TRACE) MG/DL Urine Glucose (UA) (NEG) MG/DL Urine Ketones (NEG) MG/DL Urine Blood (NEG) Urine Nitrite (NEG) Ur Leukocyte Esterase (NEG) Urine Test (NEGATIVE) Urine Opiates Screen (Not Detect) Ur Barbiturates Screen (Not Detect) Ur Phencyclidine Scrn (Not Detect) Ur Amphetamines Screen (Not Detect) U Benzodiazepines Scrn (Not Detect) Urine Cocaine Screen (Not Detect) U Marijuana (THC) Screen (Not Detect) COVID-19 (RACHAEL) (Negative) COVID-19 Clin Com 05/21/21 Range/Units 16:53 WBC (4.8-10.8) X10*3/uL RBC (4.20-5.50) X10*6/uL Hgb (12.0-16.0) g/dl Hct (37-47) % MCV (80-98) fL MCH (27.0-33.0) pg MCHC (31.0-35.0) g/dl RDW (11.0-16.0) % Plt Count (160-400) X10*3/uL MPV (9.4-12.3) fL Immature Gran % (Auto) (0.0-0.4) % Neut % (Auto) (45-73) % Lymph % (Auto) (20-40) % [place] % (Auto) (2-11) % Eos % (Auto) (0-4) % Baso % (Auto) (0-2) % Lymph # (Auto) (1.2-4.9) X10*3/uL [place] # (Auto) (0.1-1.2) X10*3/uL Eos # (Auto) (0.0-0.4) X10*3/uL Baso # (Auto) (0.0-0.2) X10*3/uL Abs Immat Gran (auto) (0.00-0.03) X10*3/uL Absolute Neuts (auto) (2.0-8.3) X10*3/uL Absolute Nucleated RBC (0.0-0.012) X10*3/uL Nucleated RBC % (auto) (0.0-0.2) /100WBC Sodium (135-145) mmol/L Potassium (3.3-5.1) mmol/L Chloride (96-108) mmol/L Carbon Dioxide (22-29) mmol/L Anion Gap (12-20) BUN (9-16) mg/dL Creatinine (0.5-1.4) mg/dL Estim Creat Clear Calc Estimated GFR Random Glucose (60-115) mg/dL Calcium (8.4-10.2) mg/dL Magnesium (1.6-2.6) mg/dL Total Bilirubin (0.0-1.0) mg/dL Direct Bilirubin (0.0-0.5) mg/dL AST (5-31) U/L ALT (0-31) U/L Alkaline Phosphatase (39-117) U/L Troponin I High Sens (<3.5-17.0) ng/L Total Protein (6.5-8.0) g/dL Albumin (3.5-5.0) g/dL Urine Color Urine Appearance Urine pH (5.0-8.0) Ur Specific [place] (1.005-1.025) Urine Protein (NEG-TRACE) MG/DL Urine Glucose (UA) (NEG) MG/DL Urine Ketones (NEG) MG/DL Urine Blood (NEG) Urine Nitrite (NEG) Ur Leukocyte Esterase (NEG) Urine Test (NEGATIVE) Urine Opiates Screen (Not Detect) Ur Barbiturates Screen (Not Detect) Ur Phencyclidine Scrn (Not Detect) Ur Amphetamines Screen (Not Detect) U Benzodiazepines Scrn (Not Detect) Urine Cocaine Screen (Not Detect) U Marijuana (THC) Screen (Not Detect) COVID-19 (RACHAEL) Negative (Negative) COVID-19 Clin Com See Note <Jim Johnston MD - Last Filed: 05/22/21 02:00> ECG Data Attestation: I personally reviewed and interpreted this ECG as follows: <TYRA Moreno - Last Filed: 05/21/21 18:31> ECG interpretation date: 05/21/21 <TYRA Moreno - Last Filed: 05/21/21 18:31> ECG interpretation time: 16:45 <TYRA Moreno - Last Filed: 05/21/21 18:31> Interpretation: EKG normal sinus rhythm with a rate of 85. Nonischemic/no STEMI <TYRA Moreno - Last Filed: 05/21/21 18:31> Discharge Plan Discharge Clinical Impression: Lightheadedness <TYRA Moreno - Last Filed: 05/21/21 18:31> Patient Disposition: Home, Self-Care <TYRA Moreno - Last Filed: 05/21/21 18:31> Instructions: Lightheadedness (ED) <TYRA Moreno - Last Filed: 05/21/21 18:31> Additional Instructions: Your blood work, urine, and x-ray were unremarkable/reassuring today in the emergency department Is very important that you are staying hydrated for the next few days Rest Please follow-up with her primary care doctor If her symptoms persist or worsen, you develop constant or worsening lightheadedness, dizziness, any chest pain/shortness of breath please return to the ED <TYRA Moreno - Last Filed: 05/21/21 18:31> Prescriptions: No Action desogestrel-ethinyl estradiol [Apri] 0.15-0.03 mg tablet 1 tab PO DAILY RF: 0 cholecalciferol (vitamin D3) 50 mcg (2,000 unit) tablet 1 tab PO DAILY RF: 0 famotidine [Pepcid] 20 mg tablet 20 mg PO BID Qty: 20 RF: 0 omeprazole 40 mg capsule,delayed release(DR/EC) 40 mg PO BID 30 Days Qty: 60 RF: 0 <TYRA Moreno - Last Filed: 05/21/21 18:31> Referrals: Itzel May, DORI [Primary Care Provider] - 2 days <TYRA Moreno - Last Filed: 05/21/21 18:31> Interventions: ED Discharge Assessment Last Done: 05/21/21 18:48 <TYRA Moreno - Last Filed: 05/21/21 18:31> Discharge Date/Time: 05/21/21 19:22 <TYRA Moreno - Last Filed: 05/21/21 18:31>
[2021-05-21 16:59] LABS: MANUAL DIFF FLAG NO
[2021-05-21 17:03] LABS: Basophils Percent Auto 0.2 % (0-2); Eosinophils Absolute Auto 0.1 X10*3/uL (0.0-0.4); Eosinophils Percent Auto 1.1 % (0-4); Hematocrit 36.3 % (37-47); Hemoglobin 11.1 g/dl (12.0-16.0); Imm Gran Abs Auto 0.04 X10*3/uL (0.00-0.03); Imm Gran Pct Auto 0.3 % (0.0-0.4); Lymphocytes Absolute Auto 2.4 X10*3/uL (1.2-4.9); Mean Corpuscular HGB Conc 30.6 g/dl (31.0-35.0); Mean Corpuscular Hemoglobin 22.7 pg (27.0-33.0); Mean Corpuscular Volume 74.4 fL (80-98); Mean Platelet Volume 9.1 fL (9.4-12.3); Monocytes Absolute Auto 0.4 X10*3/uL (0.1-1.2); Monocytes Percent Auto 3.8 % (2-11); Neutrophils Absolute Auto 8.6 X10*3/uL (2.0-8.3); Neutrophils Percent Auto 73.6 % (45-73); Platelet Count 367 X10*3/uL (160-400); Red Blood Count 4.88 X10*6/uL (4.20-5.50); Red Cell Distribution Width 15.6 % (11.0-16.0); White Blood Count 11.6 X10*3/uL (4.8-10.8)
[2021-05-21] MEDS: ondansetron HCL 4 MG/2 ML VIAL IVPUSH (17:11)
[2021-05-21] MEDS: Meclizine HCl 25 MG TABLET PO (17:11)
[2021-05-21] MEDS: 0.9 % Sodium Chloride 1,000 ML 999 ML IVCONT (17:11)
[2021-05-21 17:12] LABS: Glucose Urine UA NEG (NEG); Leukocyte Esterase Urine NEG (NEG); Nitrite Urine NEG (NEG); Specific Gravity - Urine 1.025 (1.005-1.025); Urine Blood NEG (NEG); Urine Ketones NEG (NEG); Urine Protein NEG (NEG-TRACE)
[2021-05-21 17:13] LABS: Appearance Urine HAZY; Color Urine YELLOW
[2021-05-21 17:14] LABS: UPreg QC Valid YES; Urine Pregnancy NEGATIVE (NEGATIVE)
--- NOTE | 2021-05-21 17:16 | PC.NURSE ---
Pt alert and oriented. Reports dizziness and lightheadedness x3 days. She denies blurry vision/ headache, n/v.
[2021-05-21 17:40] LABS: Amphetamine Screen Urine Not Detected (Not Detect); Barbiturates, Urine Not Detected (Not Detect); Benzodiazepines Screen Urine Not Detected (Not Detect); Cannabinoid Screen Urine Not Detected (Not Detect); Cocaine Screen Urine Not Detected (Not Detect); Opiate Screen Urine Not Detected (Not Detect); Phencyclidine Screen Urine Not Detected (Not Detect)
[2021-05-21 17:40] LABS: Alanine Aminotransferase 19 U/L (0-31); Alkaline Phosphatase 112 U/L (39-117); Anion Gap 12 (12-20); Aspartate Amino Transferase 15 U/L (5-31); Bilirubin Direct < 0.2 mg/dL (0.0-0.5); Bilirubin Total 0.3 mg/dL (0.0-1.0); Blood Urea Nitrogen 9 mg/dL (9-16); Calcium 9.4 mg/dL (8.4-10.2); Carbon Dioxide 26 mmol/L (22-29); Chloride 104 mmol/L (96-108); Creatinine Clr Calc Pharmacy 194.1; Estimated Glomerular Filt Rate > 60; Glucose Random 96 mg/dL (60-115); Potassium 4.1 mmol/L (3.3-5.1); Sodium 138 mmol/L (135-145); Total Protein 7.4 g/dL (6.5-8.0)
[2021-05-21 17:44] LABS: COVID-19 Test Negative (Negative)
[2021-05-21 17:46] LABS: Troponin-I High Sensitivity < 3.5 ng/L (<3.5-17.0)
== END 2021-05-21 19:22 | disposition home or self-care (01) ==
PROVIDERS: Physician Assistant; Emergency Provider Internal Medicine; PCP Nurse Practitioner Family
DX: R42 Dizziness and giddiness (principal); R51.9 Headache, unspecified; Z79.899 Other long term (current) drug therapy; Z20.822 Contact with and (suspected) exposure to COVID-19
CPT/HCPCS: 36415; 71045; 80048; 80076; 80307; 81003; 81025; 83735; 84484; 85025; 87635; 93005; 96365; 96374; 96375; 99285; J2405

== ENCOUNTER 2021-07-19 01:10 | Emergency (ER) | payer OTHER, SELFPAY ==
--- NOTE | ~2021-07-19 | XR_ITS ---
EXAMINATION: XR CHEST CLINICAL INFORMATION: Chest discomfort COMPARISON: 05/21/2021 TECHNIQUE: 2 views of the chest were obtained. FINDINGS: No significant abnormality is noted involving the heart, lungs, mediastinum, bony thorax or soft tissues. XR/XR chest 2V IMPRESSION: Unremarkable examination.
[2021-07-19 01:24] VITALS: BP 146/79; PULSE 95; RESP 16; TEMP 36.6; O2SAT 98; BMI 58.1
--- NOTE | 2021-07-19 01:31 | ECG_ITS ---
Test Reason : CHEST TIGHTNESS Blood Pressure : / mmHG Vent. Rate : 083 BPM Atrial Rate : 083 BPM P-R Int : 150 ms QRS Dur : 078 ms QT Int : 364 ms P-R-T Axes : 022 027 018 degrees QTc Int : 427 ms Normal sinus rhythm Normal ECG When compared with ECG of 21-MAY-2021 16:45, No significant change was found Referred By: Generic ED Physician Electronically Signed By:DEEJAY GOMEZ
[2021-07-19 02:05] LABS: UPreg QC Valid YES; Urine Pregnancy NEGATIVE (NEGATIVE)
--- NOTE | 2021-07-19 03:06 | ED.CHESTPAIN ---
HPI - Chest Pain General Chief Complaint: Anxiety Stated Complaint: chest pain Time Seen by Provider: 07/19/21 02:55 Source: patient Mode of arrival: ambulatory Limitations: no limitations History of Present Illness HPI narrative: Patient comes emergency room complaining chest tingling sensation, chest pressure for 1 week. Patient denies shortness of breath. Patient states it feels like when she has panic attacks/anxiety but this time it has lasted longer than usual. Related Data Home Medications Medication Instructions Recorded Confirmed cholecalciferol (vitamin D3) 50 1 tab PO DAILY 09/21/20 10/29/20 mcg (2,000 unit) tablet desogestrel 0.15 mg-ethinyl 1 tab PO DAILY 09/21/20 10/29/20 estradiol 0.03 mg tablet (Apri) Previous Rx's Medication Instructions Recorded famotidine 20 mg tablet (Pepcid) 20 mg PO BID #20 tab 09/22/20 omeprazole 40 mg capsule,delayed 40 mg PO BID 30 Days #60 cap 10/29/20 release Allergies Allergy/AdvReac Type Severity Reaction Status Date / Time Penicillins Allergy Unknown Verified 07/19/21 01:24 Review of Systems Review of Systems: Constitutional : No Weight loss, No Fever, No Chills, No Night Sweats, No Fatigue, No Malaise ENT/Mouth : No Hearing loss, No Ear Pain, No Nasal Congestion, No Sinus Pain, No Hoarseness, No sore throat, No Rhinorrhea, No Swallowing Difficulty Eyes: No Eye Pain, No Swelling, No Redness, No Foreign Body, No Discharge, No Vision Changes Cardiovascular : Chest pressure/tingling/discomfort No SOB, No Dyspnea on Exertion, No Orthopnea, No Edema, No Palpitations Respiratory : No Cough, No Sputum, No Wheezing, No Smoke Exposure, No Dyspnea Gastrointestinal : No Nausea, No Vomiting, No Diarrhea, No Constipation, No abdominal Pain, No Hematochezia, No Melena Genitourinary : no irregular bleeding, No Dysuria, No Urinary Frequency, No Hematuria, No Urinary Incontinence, No Urgency, No Flank Pain, No Urinary Flow Changes, No Hesitancy Musculoskeletal : No joint pain, No Myalgias, No Joint Swelling Skin : No Skin Lesions, No rash Neuro : No Weakness, No Numbness, No Paresthesias, No Loss of Consciousness, No Dizziness, No Headache Psych : Complaining of Anxiety No Depression, No SI/HI/AH/VH, No Social Issues, Heme/Lymph: No Bruising, No Bleeding,No Lymphadenopathy Endocrine : No Polyuria, No Polydipsia, No Temperature Intolerance PMF Past Medical History Medical History No known health problems Social History Social History Alcohol intake: never Patient Tobacco Use Status: Never used Tobacco Advance Directives: No Advance Directives Information Provided: No Physical Exam Vital Signs: Vital Signs: Last Vital Signs Temp 97.8 F 07/19/21 01:24 Pulse 95 07/19/21 01:24 Resp 16 07/19/21 01:24 BP 146/79 H 07/19/21 01:24 Pulse Ox 98 07/19/21 01:24 Body Mass Index 58.1 Const: Other: Appearance: Alert. Oriented X3. No acute distress. Morbidly obese Eyes: Pupils equal, round and reactive to light. ENT: Pharynx normal. Neck: Normal inspection. Neck supple. No lymph nodes noted. No crepitus CVS: Normal heart rate and rhythm. Pulses normal. Normal S1 and S2 Respiratory: No respiratory distress. Breath sounds normal. No Wheezing. No rales Abdomen: Soft and nontender. No rigidity. No distention. good BS x4 Skin: Skin warm and dry. Normal skin color. Normal skin turgor. Extremities: No lower extremity edema. No Lacerations. No Rash Neuro: Oriented X 3. No motor deficit. No sensory deficit. Moving all extermities. No slurred speech. Course Course Course Narrative: I discussed the labs and imaging with the patient, no acute findings. Patient's symptoms likely secondary to anxiety. MDM - Chest Pain Lab Data Result diagrams: 07/19/21 03:23 07/19/21 03:23 Labs: Lab Results 07/19/21 07/19/21 07/19/21 Range/Units 01:51 03:23 03:23 WBC 10.9 H (4.8-10.8) X10*3/uL RBC 4.81 (4.20-5.50) X10*6/uL Hgb 11.1 L (12.0-16.0) g/dl Hct 36.1 L (37-47) % MCV 75.1 L (80-98) fL MCH 23.1 L (27.0-33.0) pg MCHC 30.7 L (31.0-35.0) g/dl RDW 15.3 (11.0-16.0) % Plt Count 349 (160-400) X10*3/uL MPV 9.0 L (9.4-12.3) fL Immature Gran % (Auto) 0.4 (0.0-0.4) % Neut % (Auto) 72.9 (45-73) % Lymph % (Auto) 21.7 (20-40) % [place] % (Auto) 3.7 (2-11) % Eos % (Auto) 1.1 (0-4) % Baso % (Auto) 0.2 (0-2) % Lymph # (Auto) 2.4 (1.2-4.9) X10*3/uL [place] # (Auto) 0.4 (0.1-1.2) X10*3/uL Eos # (Auto) 0.1 (0.0-0.4) X10*3/uL Baso # (Auto) 0.0 (0.0-0.2) X10*3/uL Abs Immat Gran (auto) 0.04 H (0.00-0.03) X10*3/uL Absolute Neuts (auto) 8.0 (2.0-8.3) X10*3/uL Absolute Nucleated RBC 0.000 (0.0-0.012) X10*3/uL Nucleated RBC % (auto) 0.0 (0.0-0.2) /100WBC Sodium 139 (135-145) mmol/L Potassium 4.3 (3.3-5.1) mmol/L Chloride 105 (96-108) mmol/L Carbon Dioxide 26 (22-29) mmol/L Anion Gap 12 (12-20) BUN 9 (9-16) mg/dL Creatinine 0.78 (0.5-1.4) mg/dL Estim Creat Clear Calc 180.1 Estimated GFR > 60 Random Glucose 120 H (60-115) mg/dL Calcium 9.5 (8.4-10.2) mg/dL Troponin I High Sens (<3.5-17.0) ng/L Urine Test NEGATIVE (NEGATIVE) 07/19/21 Range/Units 03:23 WBC (4.8-10.8) X10*3/uL RBC (4.20-5.50) X10*6/uL Hgb (12.0-16.0) g/dl Hct (37-47) % MCV (80-98) fL MCH (27.0-33.0) pg MCHC (31.0-35.0) g/dl RDW (11.0-16.0) % Plt Count (160-400) X10*3/uL MPV (9.4-12.3) fL Immature Gran % (Auto) (0.0-0.4) % Neut % (Auto) (45-73) % Lymph % (Auto) (20-40) % [place] % (Auto) (2-11) % Eos % (Auto) (0-4) % Baso % (Auto) (0-2) % Lymph # (Auto) (1.2-4.9) X10*3/uL [place] # (Auto) (0.1-1.2) X10*3/uL Eos # (Auto) (0.0-0.4) X10*3/uL Baso # (Auto) (0.0-0.2) X10*3/uL Abs Immat Gran (auto) (0.00-0.03) X10*3/uL Absolute Neuts (auto) (2.0-8.3) X10*3/uL Absolute Nucleated RBC (0.0-0.012) X10*3/uL Nucleated RBC % (auto) (0.0-0.2) /100WBC Sodium (135-145) mmol/L Potassium (3.3-5.1) mmol/L Chloride (96-108) mmol/L Carbon Dioxide (22-29) mmol/L Anion Gap (12-20) BUN (9-16) mg/dL Creatinine (0.5-1.4) mg/dL Estim Creat Clear Calc Estimated GFR Random Glucose (60-115) mg/dL Calcium (8.4-10.2) mg/dL Troponin I High Sens < 3.5 (<3.5-17.0) ng/L Urine Test (NEGATIVE) Imaging Data Chest x-ray: Radiologist's impression: FINDINGS: No significant abnormality is noted involving the heart, lungs, mediastinum, bony thorax or soft tissues. XR/XR chest 2V IMPRESSION: Unremarkable examination. ECG Data ECG #1: Attestation: I personally reviewed and interpreted this ECG as follows: (Sinus rhythm, heart rate 80, necessitating the patient re-evaluation, note to inversion, QTC 427) Discharge Plan Discharge Clinical Impression: Atypical chest pain Patient Disposition: Home, Self-Care Instructions: Chest Pain (ED) Additional Instructions: Please follow-up with your primary care physician tomorrow. If you have any worsening or new symptoms, please return to the emergency room or call 911 Prescriptions: No Action desogestrel-ethinyl estradiol [Apri] 0.15-0.03 mg tablet 1 tab PO DAILY RF: 0 cholecalciferol (vitamin D3) 50 mcg (2,000 unit) tablet 1 tab PO DAILY RF: 0 famotidine [Pepcid] 20 mg tablet 20 mg PO BID Qty: 20 RF: 0 omeprazole 40 mg capsule,delayed release(DR/EC) 40 mg PO BID 30 Days Qty: 60 RF: 0
[2021-07-19 03:28] LABS: Basophils Percent Auto 0.2 % (0-2); Eosinophils Absolute Auto 0.1 X10*3/uL (0.0-0.4); Eosinophils Percent Auto 1.1 % (0-4); Hematocrit 36.1 % (37-47); Hemoglobin 11.1 g/dl (12.0-16.0); Imm Gran Abs Auto 0.04 X10*3/uL (0.00-0.03); Imm Gran Pct Auto 0.4 % (0.0-0.4); Lymphocytes Absolute Auto 2.4 X10*3/uL (1.2-4.9); Lymphocytes Percent Auto 21.7 % (20-40); Mean Corpuscular HGB Conc 30.7 g/dl (31.0-35.0); Mean Corpuscular Hemoglobin 23.1 pg (27.0-33.0); Mean Corpuscular Volume 75.1 fL (80-98); Monocytes Absolute Auto 0.4 X10*3/uL (0.1-1.2); Monocytes Percent Auto 3.7 % (2-11); Neutrophils Percent Auto 72.9 % (45-73); Platelet Count 349 X10*3/uL (160-400); Red Blood Count 4.81 X10*6/uL (4.20-5.50); Red Cell Distribution Width 15.3 % (11.0-16.0); White Blood Count 10.9 X10*3/uL (4.8-10.8)
[2021-07-19 03:29] LABS: MANUAL DIFF FLAG NO
[2021-07-19 03:47] LABS: Troponin-I High Sensitivity < 3.5 ng/L (<3.5-17.0)
[2021-07-19 03:56] LABS: Anion Gap 12 (12-20); Blood Urea Nitrogen 9 mg/dL (9-16); Calcium 9.5 mg/dL (8.4-10.2); Carbon Dioxide 26 mmol/L (22-29); Chloride 105 mmol/L (96-108); Creatinine Clr Calc Pharmacy 180.1; Estimated Glomerular Filt Rate > 60; Glucose Random 120 mg/dL (60-115); Potassium 4.3 mmol/L (3.3-5.1); Sodium 139 mmol/L (135-145)
== END 2021-07-19 04:44 | disposition home or self-care (01) ==
PROVIDERS: Emergency Provider Emergency Medicine
DX: R07.89 Other chest pain (principal)
CPT/HCPCS: 36415; 71046; 80048; 81025; 84484; 85025; 93005; 99283

== ENCOUNTER 2021-09-10 22:22 | Emergency (ER) | payer OTHER, SELFPAY ==
--- NOTE | ~2021-09-10 | XR_ITS ---
EXAMINATION: XR CHEST CLINICAL INFORMATION: Shortness of breath. COMPARISON: Chest radiograph dated from 07/19/2021. TECHNIQUE: AP view of the chest was obtained. FINDINGS: Normal cardiomediastinal silhouette. Low lung volumes without focal airspace opacities, pleural effusions or pneumothorax. No acute osseous findings. XR/XR chest 1V IMPRESSION: Low lung volumes, similar to prior. No acute cardiopulmonary findings.
[2021-09-10 22:31] VITALS: BP 155/87; PULSE 88; RESP 20; TEMP 36.6; O2SAT 100; BMI 55.5
--- NOTE | 2021-09-10 22:35 | ECG_ITS ---
Test Reason : palpitations Blood Pressure : / mmHG Vent. Rate : 075 BPM Atrial Rate : 075 BPM P-R Int : 162 ms QRS Dur : 086 ms QT Int : 368 ms P-R-T Axes : -03 026 011 degrees QTc Int : 410 ms Normal sinus rhythm Normal ECG No significant changes seen Referred By: Generic ED Physician Electronically Signed By:YUNIEL CROWLEY MD
[2021-09-11 00:02] LABS: MANUAL DIFF FLAG NO
[2021-09-11 00:06] LABS: Basophils Percent Auto 0.2 % (0-2); Eosinophils Absolute Auto 0.2 X10*3/uL (0.0-0.4); Eosinophils Percent Auto 1.6 % (0-4); Hematocrit 38.1 % (37-47); Hemoglobin 11.9 g/dl (12.0-16.0); Imm Gran Abs Auto 0.04 X10*3/uL (0.00-0.03); Imm Gran Pct Auto 0.3 % (0.0-0.4); Lymphocytes Absolute Auto 2.9 X10*3/uL (1.2-4.9); Lymphocytes Percent Auto 24.4 % (20-40); Mean Corpuscular HGB Conc 31.2 g/dl (31.0-35.0); Mean Corpuscular Hemoglobin 23.9 pg (27.0-33.0); Mean Corpuscular Volume 76.5 fL (80-98); Mean Platelet Volume 9.3 fL (9.4-12.3); Monocytes Absolute Auto 0.4 X10*3/uL (0.1-1.2); Monocytes Percent Auto 3.4 % (2-11); Neutrophils Absolute Auto 8.5 X10*3/uL (2.0-8.3); Neutrophils Percent Auto 70.1 % (45-73); Platelet Count 360 X10*3/uL (160-400); Red Blood Count 4.98 X10*6/uL (4.20-5.50); Red Cell Distribution Width 15.2 % (11.0-16.0); White Blood Count 12.1 X10*3/uL (4.8-10.8)
[2021-09-11 00:09] LABS: Appearance Urine CLEAR; Color Urine YELLOW; Glucose Urine UA NEG (NEG); Leukocyte Esterase Urine NEG (NEG); Nitrite Urine NEG (NEG); Specific Gravity - Urine >= 1.030 (1.005-1.025); Urine Blood NEG (NEG); Urine Ketones NEG (NEG); Urine Protein NEG (NEG-TRACE)
[2021-09-11 00:10] LABS: UACC Culture Trigger NO
[2021-09-11 00:12] LABS: UPreg QC Valid YES; Urine Pregnancy NEGATIVE (NEGATIVE)
--- NOTE | 2021-09-11 00:17 | PC.NURSE ---
PT PLACE ON MONITOR NORMAL SINUS RHYTHM NOTED.
[2021-09-11 00:28] LABS: Alanine Aminotransferase 22 U/L (0-31); Albumin Level 4.1 g/dL (3.5-5.0); Alkaline Phosphatase 110 U/L (39-117); Anion Gap 13 (12-20); Aspartate Amino Transferase 16 U/L (5-31); Bilirubin Total 0.3 mg/dL (0.0-1.0); Blood Urea Nitrogen 11 mg/dL (9-16); Calcium 9.3 mg/dL (8.4-10.2); Carbon Dioxide 27 mmol/L (22-29); Chloride 104 mmol/L (96-108); Creatinine Clr Calc Pharmacy 163.6; Estimated Glomerular Filt Rate > 60; Glucose Random 102 mg/dL (60-115); Sodium 140 mmol/L (135-145); Total Protein 7.4 g/dL (6.5-8.0)
[2021-09-11 00:29] LABS: Troponin-I High Sensitivity < 3.5 ng/L (<3.5-17.0)
--- NOTE | 2021-09-11 00:52 | ED.ARRPALP ---
HPI - Arrhythmia/Palpitations General Chief Complaint: Arrhythmia/Palpitations Stated Complaint: Palpitations Time Seen by Provider: 09/11/21 00:34 Source: patient Mode of arrival: ambulatory History of Present Illness HPI narrative: 21-year-old female with no significant past medical history presenting to the ED complaining of palpitations and chest tightness with increased anxiety x a few days however worsening over the past couple hours. Denies SOB, pedal edema, recent travel, cigarette smoking, oral OCPs, history of blood clots, abdominal pain, nausea, vomiting, diarrhea, fever/chills, cough Admits to similar symptoms in the past with negative workup Related Data Home Medications Medication Instructions Recorded Confirmed cholecalciferol (vitamin D3) 50 1 tab PO DAILY 09/21/20 10/29/20 mcg (2,000 unit) tablet desogestrel 0.15 mg-ethinyl 1 tab PO DAILY 09/21/20 10/29/20 estradiol 0.03 mg tablet (Apri) Previous Rx's Medication Instructions Recorded famotidine 20 mg tablet (Pepcid) 20 mg PO BID #20 tab 09/22/20 omeprazole 40 mg capsule,delayed 40 mg PO BID 30 Days #60 cap 10/29/20 release Allergies Allergy/AdvReac Type Severity Reaction Status Date / Time Penicillins Allergy Unknown Verified 07/19/21 01:24 Review of Systems Review of Systems: Constitutional: No Fever, No Chills, No Fatigue, No Malaise ENT/Mouth: No Ear Pain, No Nasal Congestion, No sore throat, No Rhinorrhea Eyes: No Eye Pain, No Swelling, No Redness, No Discharge Cardiovascular: + Chest Pain, No SOB, No Dyspnea on Exertion, No Orthopnea, No Edema, +Palpitations Respiratory: No Cough, No Dyspnea Gastrointestinal: No Nausea, No Vomiting, No Diarrhea, No Constipation, No Abdominal pain Genitourinary: No Dysuria, No Urinary Frequency, No Hematuria Musculoskeletal: No joint pain, No Myalgias, No Joint Swelling Skin: No Skin Lesions, No rash Neuro: No Weakness, No Numbness, No Paresthesias, No Loss of Consciousness, No Dizziness, No Headache Psych: + Anxiety/Panic Yes all other systems are reviewed and are negative [facility] Past Medical History Attestation statement: The following information was validated with the patient. Medical History No known health problems Social History Social History Alcohol intake: never Patient Tobacco Use Status: Never used Tobacco Advance Directives: No Advance Directives Information Provided: No Physical Exam Vital Signs: Vital Signs: Last Vital Signs Temp 97.9 F 09/10/21 22:31 Pulse 88 09/10/21 22:31 Resp 20 09/10/21 22:31 BP 155/87 H 09/10/21 22:31 Pulse Ox 100 09/10/21 22:31 Body Mass Index 55.5 Const: General: cooperative, healthy appearing and no acute distress Orientation/consciousness: patient oriented x3 Limitations: no limitations HENMT: Head: Yes normal to inspection Ears: hearing grossly normal bilaterally General nose exam: Normal external nose present Face and sinus: Yes normal facial exam Eyes: General: appearance normal, both eyes and all related structures EOM: EOMs intact bilaterally Neck: Neck: Yes normal visual inspection and Yes no meningeal signs Resp: Effort & Inspection: normal respiratory effort Auscultation: clear to auscultation bilaterally, no rales, no rhonchi and no wheezes Cardio: Rate: regular rate Heart sounds: S1 normal heart sound present and S2 normal heart sound present GI: Inspection: Yes normal to inspection Palpation (GI): Soft to palpation, nontender, no guarding and not rigid Skin: Rashes: no rashes Wounds: no wounds Neuro: General: patient oriented x3, tone normal, moves all extremities and no meningeal signs Extrem: General: Yes normal to inspection, Yes no pedal edema and Yes no calf tenderness Course Course Course Narrative: -0100--mild leukocytosis of 12.1. H&H at patient's baseline, labs otherwise unremarkable. Troponin negative -UA negative XR chest 1V IMPRESSION: Low lung volumes, similar to prior. No acute cardiopulmonary findings. >> results discussed with patient including worrisome signs and symptoms and strict return precautions and need to follow-up PCP/cardiology. Patient verbalized understanding for safe discharge home MDM - Arrhythmia/Palpitations MDM Narrative Medical decision making narrative: 21-year-old female with no significant past medical history presenting to the ED complaining of palpitations and chest tightness with increased anxiety x a few days however worsening over the past couple hours. On exam vital signs stable, NAD, lungs CTA, no pedal edema/calf tenderness. Concern for anxiety vs electrolyte abnormalities/thyroid dysfunction. Symptoms atypical for ACS or PE. Low concern for infectious etiology Plan: EKG, labs, CXR, p.o. Atarax, re-evaluate Medical Records Attestation: I reviewed the patient's medical records. Lab Data Attestation: I reviewed the patient's lab results. Result diagrams: 09/10/21 23:56 09/10/21 23:56 Labs: Lab Results 09/10/21 09/10/21 09/10/21 Range/Units 23:54 23:54 23:56 WBC 12.1 H (4.8-10.8) X10*3/uL RBC 4.98 (4.20-5.50) X10*6/uL Hgb 11.9 L (12.0-16.0) g/dl Hct 38.1 (37-47) % MCV 76.5 L (80-98) fL MCH 23.9 L (27.0-33.0) pg MCHC 31.2 (31.0-35.0) g/dl RDW 15.2 (11.0-16.0) % Plt Count 360 (160-400) X10*3/uL MPV 9.3 L (9.4-12.3) fL Immature Gran % (Auto) 0.3 (0.0-0.4) % Neut % (Auto) 70.1 (45-73) % Lymph % (Auto) 24.4 (20-40) % [place] % (Auto) 3.4 (2-11) % Eos % (Auto) 1.6 (0-4) % Baso % (Auto) 0.2 (0-2) % Lymph # (Auto) 2.9 (1.2-4.9) X10*3/uL [place] # (Auto) 0.4 (0.1-1.2) X10*3/uL Eos # (Auto) 0.2 (0.0-0.4) X10*3/uL Baso # (Auto) 0.0 (0.0-0.2) X10*3/uL Abs Immat Gran (auto) 0.04 H (0.00-0.03) X10*3/uL Absolute Neuts (auto) 8.5 H (2.0-8.3) X10*3/uL Absolute Nucleated RBC 0.000 (0.0-0.012) X10*3/uL Nucleated RBC % (auto) 0.0 (0.0-0.2) /100WBC Sodium (135-145) mmol/L Potassium (3.3-5.1) mmol/L Chloride (96-108) mmol/L Carbon Dioxide (22-29) mmol/L Anion Gap (12-20) BUN (9-16) mg/dL Creatinine (0.5-1.4) mg/dL Estim Creat Clear Calc Estimated GFR Random Glucose (60-115) mg/dL Calcium (8.4-10.2) mg/dL Magnesium (1.6-2.6) mg/dL Total Bilirubin (0.0-1.0) mg/dL AST (5-31) U/L ALT (0-31) U/L Alkaline Phosphatase (39-117) U/L Troponin I High Sens (<3.5-17.0) ng/L Total Protein (6.5-8.0) g/dL Albumin (3.5-5.0) g/dL TSH (0.32-4.0) uIU/mL Urine Color YELLOW Urine Appearance CLEAR Urine pH 6.0 (5.0-8.0) Ur Specific [place] >= 1.030 H (1.005-1.025) Urine Protein NEG (NEG-TRACE) MG/DL Urine Glucose (UA) NEG (NEG) MG/DL Urine Ketones NEG (NEG) MG/DL Urine Blood NEG (NEG) Urine Nitrite NEG (NEG) Ur Leukocyte Esterase NEG (NEG) Urine Test NEGATIVE (NEGATIVE) 09/10/21 09/10/21 Range/Units 23:56 23:56 WBC (4.8-10.8) X10*3/uL RBC (4.20-5.50) X10*6/uL Hgb (12.0-16.0) g/dl Hct (37-47) % MCV (80-98) fL MCH (27.0-33.0) pg MCHC (31.0-35.0) g/dl RDW (11.0-16.0) % Plt Count (160-400) X10*3/uL MPV (9.4-12.3) fL Immature Gran % (Auto) (0.0-0.4) % Neut % (Auto) (45-73) % Lymph % (Auto) (20-40) % [place] % (Auto) (2-11) % Eos % (Auto) (0-4) % Baso % (Auto) (0-2) % Lymph # (Auto) (1.2-4.9) X10*3/uL [place] # (Auto) (0.1-1.2) X10*3/uL Eos # (Auto) (0.0-0.4) X10*3/uL Baso # (Auto) (0.0-0.2) X10*3/uL Abs Immat Gran (auto) (0.00-0.03) X10*3/uL Absolute Neuts (auto) (2.0-8.3) X10*3/uL Absolute Nucleated RBC (0.0-0.012) X10*3/uL Nucleated RBC % (auto) (0.0-0.2) /100WBC Sodium 140 (135-145) mmol/L Potassium 4.0 (3.3-5.1) mmol/L Chloride 104 (96-108) mmol/L Carbon Dioxide 27 (22-29) mmol/L Anion Gap 13 (12-20) BUN 11 (9-16) mg/dL Creatinine 0.89 (0.5-1.4) mg/dL Estim Creat Clear Calc 163.6 Estimated GFR > 60 Random Glucose 102 (60-115) mg/dL Calcium 9.3 (8.4-10.2) mg/dL Magnesium 2.0 (1.6-2.6) mg/dL Total Bilirubin 0.3 (0.0-1.0) mg/dL AST 16 (5-31) U/L ALT 22 (0-31) U/L Alkaline Phosphatase 110 (39-117) U/L Troponin I High Sens < 3.5 (<3.5-17.0) ng/L Total Protein 7.4 (6.5-8.0) g/dL Albumin 4.1 (3.5-5.0) g/dL TSH 3.32 (0.32-4.0) uIU/mL Urine Color Urine Appearance Urine pH (5.0-8.0) Ur Specific [place] (1.005-1.025) Urine Protein (NEG-TRACE) MG/DL Urine Glucose (UA) (NEG) MG/DL Urine Ketones (NEG) MG/DL Urine Blood (NEG) Urine Nitrite (NEG) Ur Leukocyte Esterase (NEG) Urine Test (NEGATIVE) ECG Data Attestation: I personally reviewed and interpreted this ECG as follows: ECG interpretation date: 09/10/21 ECG interpretation time: 22:43 Interpretation: EKG normal sinus rhythm with a rate of 75. FL interval 162. QTC 410. Nonischemic/no STEMI Discharge Plan Discharge Clinical Impression: Palpitations Patient Disposition: Home, Self-Care Instructions: Heart Palpitations (ED) Additional Instructions: Your blood work and chest x-ray were reassuring today in the emergency department Her EKG was also reassuring It is important for you to follow-up with her primary care doctor as well as cardiology as needed If her symptoms persist or worsen, chest pain becomes more constant/unbearable, you developed shortness of breath, swelling in her legs or calf pain please return to the ED Prescriptions: No Action desogestrel-ethinyl estradiol [Apri] 0.15-0.03 mg tablet 1 tab PO DAILY RF: 0 cholecalciferol (vitamin D3) 50 mcg (2,000 unit) tablet 1 tab PO DAILY RF: 0 famotidine [Pepcid] 20 mg tablet 20 mg PO BID Qty: 20 RF: 0 omeprazole 40 mg capsule,delayed release(DR/EC) 40 mg PO BID 30 Days Qty: 60 RF: 0 Referrals: Stan Calvin MD [Physician] - 5 days Aundrea Starks NP [Primary Care Provider] - 2 days
[2021-09-11] MEDS: hydrOXYzine HCL 25 MG TABLET PO (01:09)
[2021-09-11 01:12] LABS: TSH reflex Free T4 3.32 uIU/mL (0.32-4.0)
== END 2021-09-11 01:28 | disposition home or self-care (01) ==
PROVIDERS: Physician Assistant; Emergency Provider Student in an Organized Health Care Education/Training Program; PCP Nurse Practitioner Primary Care
DX: R00.2 Palpitations (principal); R07.89 Other chest pain
CPT/HCPCS: 36415; 71045; 80053; 81003; 81025; 83735; 84443; 84484; 85025; 93005; 99283; 99284

== ENCOUNTER 2021-10-26 11:59 | Outpatient (REF) | payer OTHER, SELFPAY ==
--- NOTE | ~2021-10-26 | XR_ITS ---
EXAMINATION: XR FOOT, LEFT CLINICAL INFORMATION: Pain COMPARISON: None TECHNIQUE: AP, lateral, and oblique views of the left foot. FINDINGS: The bones and soft tissues are normal. No fracture. Alignment is anatomic. Joint spaces are maintained. XR/XR foot LT min 3V IMPRESSION: Normal left foot.
== END 2021-10-26 12:00 | disposition home or self-care (01) ==
LOC: HO.XRAY 11:59
PROVIDERS: Visit Provider Registered Nurse Community Health
DX: M79.672 Pain in left foot (principal)
CPT/HCPCS: 73630

== ENCOUNTER 2021-11-27 08:27 | Emergency (ER) | payer MEDICAID, SELFPAY ==
[2021-11-27 08:52] VITALS: BP 157/94; PULSE 81; RESP 20; TEMP 36.6; O2SAT 98; BMI 59.7
[2021-11-27 12:54] LABS: MANUAL DIFF FLAG NO
[2021-11-27 12:58] LABS: Basophils Percent Auto 0.1 % (0-2); Eosinophils Absolute Auto 0.2 X10*3/uL (0.0-0.4); Eosinophils Percent Auto 1.7 % (0-4); Hematocrit 40.8 % (37.0-47.0); Hemoglobin 12.4 g/dl (12.0-16.0); Imm Gran Abs Auto 0.03 X10*3/uL (0.00-0.03); Imm Gran Pct Auto 0.3 % (0.0-0.4); Lymphocytes Absolute Auto 2.9 X10*3/uL (1.2-4.9); Lymphocytes Percent Auto 25.9 % (20-40); Mean Corpuscular HGB Conc 30.4 g/dl (31.0-35.0); Mean Corpuscular Hemoglobin 23.7 pg (27.0-33.0); Mean Platelet Volume 9.1 fL (9.4-12.3); Monocytes Absolute Auto 0.5 X10*3/uL (0.1-1.2); Monocytes Percent Auto 4.1 % (2-11); Neutrophils Absolute Auto 7.5 x10*3/uL (2.0-8.3); Neutrophils Percent Auto 67.9 % (45-73); Platelet Count 363 X10*3/uL (160-400); Red Blood Count 5.23 X10*6/uL (4.20-5.50)
[2021-11-27 13:03] LABS: Appearance Urine HAZY; Color Urine YELLOW; Glucose Urine UA NEG (NEG); Leukocyte Esterase Urine NEG (NEG); Nitrite Urine NEG (NEG); Specific Gravity - Urine 1.025 (1.005-1.025); Urine Blood NEG (NEG); Urine Ketones NEG (NEG); Urine Protein NEG (NEG-TRACE)
[2021-11-27 13:05] LABS: UPreg QC Valid YES; Urine Pregnancy NEGATIVE (NEGATIVE)
[2021-11-27 13:13] LABS: COVID-19 Test Positive (Negative)
[2021-11-27 13:17] LABS: Alanine Aminotransferase 36 U/L (0-31); Albumin Level 4.2 g/dL (3.5-5.0); Alkaline Phosphatase 117 U/L (39-117); Anion Gap 10 (12-20); Aspartate Amino Transferase 20 U/L (5-31); Bilirubin Direct 0.2 mg/dL (0.0-0.5); Bilirubin Total 0.4 mg/dL (0.0-1.0); Blood Urea Nitrogen 10 mg/dL (9-16); Calcium 10.1 mg/dL (8.4-10.2); Carbon Dioxide 31 mmol/L (22-29); Chloride 104 mmol/L (96-108); Creatinine Clr Calc Pharmacy 183.4; Estimated Glomerular Filt Rate > 60; Glucose Random 93 mg/dL (60-115); Magnesium 2.1 mg/dL (1.6-2.6); Potassium 4.1 mmol/L (3.3-5.1); Sodium 141 mmol/L (135-145); Total Protein 8.1 g/dL (6.5-8.0)
--- NOTE | 2021-11-27 14:32 | ED.NAVMDI ---
HPI - Nausea/Vomiting/Diarrhea General Chief complaint: Abdominal Pain Stated complaint: L abd pain Time Seen by Provider: 11/27/21 12:34 Source: patient Mode of arrival: ambulatory Limitations: no limitations History of Present Illness HPI Narrative: Patient comes to emergency room complaining of couple of days of diarrhea. Patient denies any vomiting or fever. No UTI symptoms. Patient states she tried taking Pepto-Bismol. Patient states she has mild left lower quadrant pain intermittently. At this time she has no pain. Of note, patient tested positive for COVID. Patient states that she has known since November 18 that she tested positive for COVID-19 Related Data Home Medications Medication Instructions Recorded Confirmed cholecalciferol (vitamin D3) 50 1 tab PO DAILY 09/21/20 10/29/20 mcg (2,000 unit) tablet desogestrel 0.15 mg-ethinyl 1 tab PO DAILY 09/21/20 10/29/20 estradiol 0.03 mg tablet (Apri) Previous Rx's Medication Instructions Recorded famotidine 20 mg tablet (Pepcid) 20 mg PO BID #20 tab 09/22/20 omeprazole 40 mg capsule,delayed 40 mg PO BID 30 Days #60 cap 10/29/20 release loperamide 2 mg tablet 2 mg PO Q4H PRN #14 tab 11/27/21 Allergies Allergy/AdvReac Type Severity Reaction Status Date / Time Penicillins Allergy Unknown Verified 07/19/21 01:24 Review of Systems Review of Systems: Constitutional : No Weight loss, No Fever, No Chills, No Night Sweats, No Fatigue, No Malaise ENT/Mouth : No Hearing loss, No Ear Pain, No Nasal Congestion, No Sinus Pain, No Hoarseness, No sore throat, No Rhinorrhea, No Swallowing Difficulty Eyes: No Eye Pain, No Swelling, No Redness, No Foreign Body, No Discharge, No Vision Changes Cardiovascular : No Chest Pain, No SOB, No Dyspnea on Exertion, No Orthopnea, No Edema, No Palpitations Respiratory : No Cough, No Sputum, No Wheezing, No Smoke Exposure, No Dyspnea Gastrointestinal : No Nausea, No Vomiting, complaining of Diarrhea, No Constipation, complaining of mild left lower quadrant pain, Hematochezia, No Melena Genitourinary : no irregular bleeding, No Dysuria, No Urinary Frequency, No Hematuria, No Urinary Incontinence, No Urgency, No Flank Pain, No Urinary Flow Changes, No Hesitancy Musculoskeletal : No joint pain, No Myalgias, No Joint Swelling Skin : No Skin Lesions, No rash Neuro : No Weakness, No Numbness, No Paresthesias, No Loss of Consciousness, No Dizziness, No Headache Psych : No Anxiety/Panic, No Depression, No SI/HI/AH/VH, No Social Issues, Heme/Lymph: No Bruising, No Bleeding,No Lymphadenopathy Endocrine : No Polyuria, No Polydipsia, No Temperature Intolerance [facility] Past Medical History Medical History No known health problems Social History Social History Alcohol intake: never Patient Tobacco Use Status: Never used Tobacco Advance Directives: No Advance Directives Information Provided: Yes Physical Exam Vital Signs: Vital Signs: Last Vital Signs Temp 97.8 F 11/27/21 08:52 Pulse 81 11/27/21 08:52 Resp 20 11/27/21 08:52 BP 157/94 H 11/27/21 08:52 Pulse Ox 98 11/27/21 08:52 BMI result Body Mass Index 59.7 Const: Other: Appearance: Alert. Oriented X3. No acute distress. Well-appearing Eyes: Pupils equal, round and reactive to light. ENT: Pharynx normal. Moist mucous membranes Neck: Normal inspection. Neck supple. No lymph nodes noted. No crepitus CVS: Normal heart rate and rhythm. Pulses normal. Normal S1 and S2 Respiratory: No respiratory distress. Breath sounds normal. No Wheezing. No rales Abdomen: Soft and nontender to deep palpation. No rigidity. No distention. Skin: Skin warm and dry. Normal skin color. Normal skin turgor. Extremities: No lower extremity edema. No lower extremity edema. No Lacerations. No Rash Neuro: Oriented X 3. No motor deficit. No sensory deficit. Moving all extermities. No slurred speech. Course Course Course Narrative: On physical exam patient is not tender. Patient was given 1 dose of loperamide. Patient instructed to follow-up with her primary care physician. MDM - Nausea/Vomiting/Diarrhea Lab Data Result diagrams: 11/27/21 12:45 11/27/21 12:45 Labs: Lab Results 11/27/21 11/27/21 11/27/21 Range/Units 12:45 12:45 12:45 WBC 11.0 H (4.8-10.8) X10*3/uL RBC 5.23 (4.20-5.50) X10*6/uL Hgb 12.4 (12.0-16.0) g/dl Hct 40.8 (37.0-47.0) % MCV 78.0 L (80.0-98.0) fL MCH 23.7 L (27.0-33.0) pg MCHC 30.4 L (31.0-35.0) g/dl RDW 15.0 (11.0-16.0) % Plt Count 363 (160-400) X10*3/uL MPV 9.1 L (9.4-12.3) fL Immature Gran % (Auto) 0.3 (0.0-0.4) % Neut % (Auto) 67.9 (45-73) % Lymph % (Auto) 25.9 (20-40) % [place] % (Auto) 4.1 (2-11) % Eos % (Auto) 1.7 (0-4) % Baso % (Auto) 0.1 (0-2) % Lymph # (Auto) 2.9 (1.2-4.9) X10*3/uL [place] # (Auto) 0.5 (0.1-1.2) X10*3/uL Eos # (Auto) 0.2 (0.0-0.4) X10*3/uL Baso # (Auto) 0.0 (0.0-0.2) X10*3/uL Abs Immat Gran (auto) 0.03 (0.00-0.03) X10*3/uL Absolute Neuts (auto) 7.5 (2.0-8.3) x10*3/uL Absolute Nucleated RBC 0.000 (0.0-0.012) X10*3/uL Nucleated RBC % (auto) 0.0 (0.0-0.2) /100WBC Sodium 141 (135-145) mmol/L Potassium 4.1 (3.3-5.1) mmol/L Chloride 104 (96-108) mmol/L Carbon Dioxide 31 H (22-29) mmol/L Anion Gap 10 L (12-20) BUN 10 (9-16) mg/dL Creatinine 0.78 (0.5-1.4) mg/dL Estim Creat Clear Calc 183.4 Estimated GFR > 60 Random Glucose 93 (60-115) mg/dL Calcium 10.1 D (8.4-10.2) mg/dL Magnesium 2.1 (1.6-2.6) mg/dL Total Bilirubin 0.4 (0.0-1.0) mg/dL Direct Bilirubin 0.2 (0.0-0.5) mg/dL AST 20 (5-31) U/L ALT 36 H (0-31) U/L Alkaline Phosphatase 117 (39-117) U/L Total Protein 8.1 H (6.5-8.0) g/dL Albumin 4.2 (3.5-5.0) g/dL Urine Color Urine Appearance Urine pH (5.0-8.0) Ur Specific [place] (1.005-1.025) Urine Protein (NEG-TRACE) MG/DL Urine Glucose (UA) (NEG) MG/DL Urine Ketones (NEG) MG/DL Urine Blood (NEG) Urine Nitrite (NEG) Ur Leukocyte Esterase (NEG) Urine Test (NEGATIVE) COVID-19 (RACHAEL) Positive A (Negative) COVID-19 Clin Com See Note 11/27/21 11/27/21 Range/Units 12:49 12:49 WBC (4.8-10.8) X10*3/uL RBC (4.20-5.50) X10*6/uL Hgb (12.0-16.0) g/dl Hct (37.0-47.0) % MCV (80.0-98.0) fL MCH (27.0-33.0) pg MCHC (31.0-35.0) g/dl RDW (11.0-16.0) % Plt Count (160-400) X10*3/uL MPV (9.4-12.3) fL Immature Gran % (Auto) (0.0-0.4) % Neut % (Auto) (45-73) % Lymph % (Auto) (20-40) % [place] % (Auto) (2-11) % Eos % (Auto) (0-4) % Baso % (Auto) (0-2) % Lymph # (Auto) (1.2-4.9) X10*3/uL [place] # (Auto) (0.1-1.2) X10*3/uL Eos # (Auto) (0.0-0.4) X10*3/uL Baso # (Auto) (0.0-0.2) X10*3/uL Abs Immat Gran (auto) (0.00-0.03) X10*3/uL Absolute Neuts (auto) (2.0-8.3) x10*3/uL Absolute Nucleated RBC (0.0-0.012) X10*3/uL Nucleated RBC % (auto) (0.0-0.2) /100WBC Sodium (135-145) mmol/L Potassium (3.3-5.1) mmol/L Chloride (96-108) mmol/L Carbon Dioxide (22-29) mmol/L Anion Gap (12-20) BUN (9-16) mg/dL Creatinine (0.5-1.4) mg/dL Estim Creat Clear Calc Estimated GFR Random Glucose (60-115) mg/dL Calcium (8.4-10.2) mg/dL Magnesium (1.6-2.6) mg/dL Total Bilirubin (0.0-1.0) mg/dL Direct Bilirubin (0.0-0.5) mg/dL AST (5-31) U/L ALT (0-31) U/L Alkaline Phosphatase (39-117) U/L Total Protein (6.5-8.0) g/dL Albumin (3.5-5.0) g/dL Urine Color YELLOW Urine Appearance HAZY Urine pH 6.0 (5.0-8.0) Ur Specific [place] 1.025 (1.005-1.025) Urine Protein NEG (NEG-TRACE) MG/DL Urine Glucose (UA) NEG (NEG) MG/DL Urine Ketones NEG (NEG) MG/DL Urine Blood NEG (NEG) Urine Nitrite NEG (NEG) Ur Leukocyte Esterase NEG (NEG) Urine Test NEGATIVE (NEGATIVE) COVID-19 (RACHAEL) (Negative) COVID-19 Clin Com Discharge Plan Discharge Clinical Impression: Diarrhea, COVID-19 Patient Disposition: Home, Self-Care Instructions: Loperamide (By mouth), COVID-19 (Coronavirus Disease 2019) (ED) Additional Instructions: Please follow-up with your primary care physician tomorrow. If you have any worsening or new symptoms, please return to the emergency room or call 911 Prescriptions: New loperamide 2 mg tablet 2 mg PO Q4H PRN (Reason: loose stool) Qty: 14 RF: 0 No Action desogestrel-ethinyl estradiol [Apri] 0.15-0.03 mg tablet 1 tab PO DAILY RF: 0 cholecalciferol (vitamin D3) 50 mcg (2,000 unit) tablet 1 tab PO DAILY RF: 0 famotidine [Pepcid] 20 mg tablet 20 mg PO BID Qty: 20 RF: 0 omeprazole 40 mg capsule,delayed release(DR/EC) 40 mg PO BID 30 Days Qty: 60 RF: 0
[2021-11-27] MEDS: Loperamide HCl 2 MG CAPSULE 4 MG PO (14:51)
== END 2021-11-27 15:19 | disposition home or self-care (01) ==
PROVIDERS: Physician Assistant; Emergency Provider Emergency Medicine; PCP Nurse Practitioner Primary Care
DX: U07.1 COVID-19 (principal); R19.7 Diarrhea, unspecified; R10.32 Left lower quadrant pain
CPT/HCPCS: 80048; 80076; 81003; 81025; 83735; 85025; 87635; 99283

== ENCOUNTER 2022-01-25 13:39 | Emergency (ER) | payer MEDICAID, SELFPAY ==
--- NOTE | 2022-01-25 | ECG_ITS ---
Test Reason : CHEST PAIN Blood Pressure : / mmHG Vent. Rate : 079 BPM Atrial Rate : 079 BPM P-R Int : 148 ms QRS Dur : 076 ms QT Int : 348 ms P-R-T Axes : -02 039 011 degrees QTc Int : 399 ms Normal sinus rhythm Normal ECG When compared with ECG of 10-SEP-2021 22:43, No significant change was found Referred By: Jim Vargas Electronically Signed By:PETR JEAN
[2022-01-25 14:28] VITALS: BP 156/94; PULSE 89; RESP 18; TEMP 36.3; O2SAT 98; BMI 59.7
[2022-01-25 14:42] LABS: MANUAL DIFF FLAG NO
[2022-01-25 14:51] LABS: Basophils Percent Auto 0.2 % (0-2); Eosinophils Absolute Auto 0.2 X10*3/uL (0.0-0.4); Eosinophils Percent Auto 1.3 % (0-4); Hematocrit 40.1 % (37.0-47.0); Hemoglobin 12.1 g/dl (12.0-16.0); Imm Gran Abs Auto 0.03 X10*3/uL (0.00-0.03); Imm Gran Pct Auto 0.2 % (0.0-0.4); Lymphocytes Absolute Auto 2.8 X10*3/uL (1.2-4.9); Lymphocytes Percent Auto 22.1 % (20-40); Mean Corpuscular HGB Conc 30.2 g/dl (31.0-35.0); Mean Corpuscular Hemoglobin 23.6 pg (27.0-33.0); Mean Corpuscular Volume 78.2 fL (80.0-98.0); Mean Platelet Volume 9.4 fL (9.4-12.3); Monocytes Absolute Auto 0.5 X10*3/uL (0.1-1.2); Monocytes Percent Auto 3.7 % (2-11); Neutrophils Percent Auto 72.5 % (45-73); Platelet Count 400 X10*3/uL (160-400); Red Blood Count 5.13 X10*6/uL (4.20-5.50); Red Cell Distribution Width 14.3 % (11.0-16.0); White Blood Count 12.5 X10*3/uL (4.8-10.8)
[2022-01-25 14:56] LABS: Anion Gap 13 (12-20); Blood Urea Nitrogen 12 mg/dL (9-16); Calcium 9.5 mg/dL (8.4-10.2); Carbon Dioxide 28 mmol/L (22-29); Chloride 103 mmol/L (96-108); Creatinine Clr Calc Pharmacy 185.8; Estimated Glomerular Filt Rate > 60; Glucose Random 96 mg/dL (60-115); Potassium 4.2 mmol/L (3.3-5.1); Sodium 140 mmol/L (135-145)
[2022-01-25 21:29] VITALS: BP 122/78; PULSE 90; RESP 16; TEMP 36.6; O2SAT 100
--- NOTE | 2022-01-25 21:31 | ED_ITS ---
HPI - Dizziness General Chief Complaint: Dizziness Stated Complaint: high BP/dizziness Time Seen by Provider: 01/25/22 21:31 Source: patient Mode of arrival: ambulatory Limitations: no limitations History of Present Illness HPI Narrative: Patient morbidly obese comes here for nonspecific dizziness and high blood pr essure since her blood pressure was 160/110 at home she using regular cuff in the left arm. No headache no nausea no vomiting no chest pain or palpitation strong family history of hypertension patient is nonsmoker Related Data Home Medications Medication Instructions Recorded Confirmed cholecalciferol (vitamin D3) 50 1 tab PO DAILY 09/21/20 10/29/20 mcg (2,000 unit) tablet desogestrel 0.15 mg-ethinyl 1 tab PO DAILY 09/21/20 10/29/20 estradiol 0.03 mg tablet (Apri) Previous Rx's Medication Instructions Recorded famotidine 20 mg tablet (Pepcid) 20 mg PO BID #20 tab 09/22/20 omeprazole 40 mg capsule,delayed 40 mg PO BID 30 Days #60 cap 10/29/20 release loperamide 2 mg tablet 2 mg PO Q4H PRN #14 tab 11/27/21 Allergies Allergy/AdvReac Type Severity Reaction Status Date / Time Penicillins Allergy Unknown Verified 07/19/21 01:24 Review of Systems Review of Systems: Yes all other systems are reviewed and are negative [facility] Past Medical History Medical History No known health problems Social History Social History Alcohol intake: never Patient Tobacco Use Status: Never used Tobacco Advance Directives: No Advance Directives Information Provided: No Patient : No Physical Exam Vital Signs: Vital Signs: Last Vital Signs Temp 97.9 F 01/25/22 21:29 Pulse 90 01/25/22 21:29 Resp 16 01/25/22 21:29 BP 122/78 01/25/22 21:29 Pulse Ox 100 01/25/22 21:29 BMI result Body Mass Index 59.7 Appearance: Alert. Oriented X3. No acute distress. Obese recheck blood pressure 122/78 IA 90 Eyes: PERRLA, No Nystagmus no pyloric ENT: Pharynx normal. Oral Mucosa moist Neck: Normal inspection. Neck supple. CVS: Normal heart rate and rhythm. Pulses normal. Respiratory: No respiratory distress. Equal air entry bilateral, no wheezing/rales/rhonchi Abdomen: Soft and nontender. Bowel sounds are present, no mass palpable, no CVA tenderness Skin: Skin warm and dry. Normal skin color. Normal skin turgor. Extremities: No lower extremity edema. No calf tenderness Neuro: Oriented X 3. No motor deficit. No sensory deficit.No cerebellar signs , cranial nerves II-XII intact MDM - Dizziness MDM Narrative Medical decision making narrative: Patient nonspecific dizziness worried about the blood pressure but repeated blood pressure with large size cuff was normal in the ER patient reassured about normal blood pressure advised to decrease the weight patient does snore in the night but denies diagnosis of sleep apnea. Patient advised to follow-up with PCP Lab Data Attestation: I reviewed the patient's lab results. Result diagrams: 01/25/22 14:36 01/25/22 14:36 Labs: Lab Results 01/25/22 01/25/22 Range/Units 14:36 14:36 WBC 12.5 H (4.8-10.8) X10*3/uL RBC 5.13 (4.20-5.50) X10*6/uL Hgb 12.1 (12.0-16.0) g/dl Hct 40.1 (37.0-47.0) % MCV 78.2 L (80.0-98.0) fL MCH 23.6 L (27.0-33.0) pg MCHC 30.2 L (31.0-35.0) g/dl RDW 14.3 (11.0-16.0) % Plt Count 400 (160-400) X10*3/uL MPV 9.4 (9.4-12.3) fL Immature Gran % (Auto) 0.2 (0.0-0.4) % Neut % (Auto) 72.5 (45-73) % Lymph % (Auto) 22.1 (20-40) % [place] % (Auto) 3.7 (2-11) % Eos % (Auto) 1.3 (0-4) % Baso % (Auto) 0.2 (0-2) % Lymph # (Auto) 2.8 (1.2-4.9) X10*3/uL [place] # (Auto) 0.5 (0.1-1.2) X10*3/uL Eos # (Auto) 0.2 (0.0-0.4) X10*3/uL Baso # (Auto) 0.0 (0.0-0.2) X10*3/uL Abs Immat Gran (auto) 0.03 (0.00-0.03) X10*3/uL Absolute Neuts (auto) 9.0 H (2.0-8.3) x10*3/uL Absolute Nucleated RBC 0.000 (0.0-0.012) X10*3/uL Nucleated RBC % (auto) 0.0 (0.0-0.2) /100WBC Sodium 140 (135-145) mmol/L Potassium 4.2 (3.3-5.1) mmol/L Chloride 103 (96-108) mmol/L Carbon Dioxide 28 (22-29) mmol/L Anion Gap 13 (12-20) BUN 12 (9-16) mg/dL Creatinine 0.77 (0.5-1.4) mg/dL Estim Creat Clear Calc 185.8 Estimated GFR > 60 Random Glucose 96 (60-115) mg/dL Calcium 9.5 (8.4-10.2) mg/dL Discharge Plan Discharge Clinical Impression: Dizziness of unknown etiology Patient Disposition: Home, Self-Care Instructions: Dizziness (ED) Additional Instructions: The blood pressure checked is normal in the ER Work on your weight Decreased salt intake Follow with PCP Prescriptions: No Action desogestrel-ethinyl estradiol [Apri] 0.15-0.03 mg tablet 1 tab PO DAILY 0RF cholecalciferol (vitamin D3) 50 mcg (2,000 unit) tablet 1 tab PO DAILY 0RF famotidine [Pepcid] 20 mg tablet 20 mg PO BID Qty: 20 0RF omeprazole 40 mg capsule,delayed release(DR/EC) 40 mg PO BID 30 Days Qty: 60 0RF loperamide 2 mg tablet 2 mg PO Q4H PRN (Reason: loose stool) Qty: 14 0RF Rx Instructions: administer after each loose stool until symptoms controlled; do not exceed 8 mg per 24 hrs Stand Alone Forms: Work/School Release Interventions: ED Discharge Assessment Last Done: 01/25/22 22:16 Discharge Date/Time: 01/25/22 22:18
--- NOTE | 2022-01-25 22:17 | PC.NURSE ---
I assumed care of this pt upon her arrival to bed 19. I met her at the time of discharge. At time of discharge she was visibly and verbally annoyed with the discharge instructions that included work on your weight . Otherwise, she verbalized an understanding of all DC orders and she ambulated out of the ED independently and with steady gait.
== END 2022-01-25 22:18 | disposition home or self-care (01) ==
PROVIDERS: Emergency Provider Internal Medicine; PCP Nurse Practitioner Primary Care
DX: R42 Dizziness and giddiness (principal)
CPT/HCPCS: 36415; 80048; 85025; 93005; 99283; 99284

== ENCOUNTER 2022-03-23 13:45 | Emergency (ER) | payer MEDICAID, SELFPAY ==
[2022-03-23 14:26] VITALS: BP 158/80; PULSE 94; RESP 18; TEMP 36.1; O2SAT 96; BMI 61.7
[2022-03-23 14:59] LABS: IDNOW Serial# 9DD0AD1C; Influenza A Negative (Negative); Influenza B2 Negative (Negative)
[2022-03-23 15:21] LABS: COVID-19 Test Negative (Negative); IDNOW Serial# 16C4AD1C
--- NOTE | 2022-03-23 16:32 | ED.GENADULT ---
HPI - General Adult General Chief complaint: Ear Problems Stated complaint: abd pain r ear pain Time Seen by Provider: 03/23/22 15:42 Source: patient Mode of arrival: ambulatory History of Present Illness HPI narrative: 21-year-old female with no significant past medical history presenting to the ED complaining of right ear pain, diarrhea, generalized fatigue, abdominal cramping x4 days. Admits to sick contacts with similar symptoms. Denies fever, chills, vomiting, suspicious food intake, CP/SOB, hearing loss Onset (ago): day(s) Related Data Home Medications Medication Instructions Recorded Confirmed cholecalciferol (vitamin D3) 50 1 tab PO DAILY 09/21/20 10/29/20 mcg (2,000 unit) tablet desogestrel 0.15 mg-ethinyl 1 tab PO DAILY 09/21/20 10/29/20 estradiol 0.03 mg tablet (Apri) Previous Rx's Medication Instructions Recorded famotidine 20 mg tablet (Pepcid) 20 mg PO BID #20 tab 09/22/20 omeprazole 40 mg capsule,delayed 40 mg PO BID 30 Days #60 cap 10/29/20 release loperamide 2 mg tablet 2 mg PO Q4H PRN #14 tab 11/27/21 Allergies Allergy/AdvReac Type Severity Reaction Status Date / Time Penicillins Allergy Unknown Verified 07/19/21 01:24 Review of Systems Review of Systems: Constitutional: No Weight loss, No Fever, No Chills, + fatigue/malaise ENT/Mouth: + Ear Pain, No Nasal Congestion, No Sinus Pain, No Hoarseness, No sore throat, No Rhinorrhea, No Swallowing Difficulty Cardiovascular: No Chest Pain, No SOB Respiratory: + Cough, No Sputum, No Wheezing Gastrointestinal: No Nausea, No Vomiting, No Diarrhea, No Constipation, No Abdominal pain Genitourinary: No Dysuria, No Urgency, No Flank Pain Musculoskeletal: No joint pain, No Myalgias, No Joint Swelling Skin: No Skin Lesions, No rash Neuro: No Weakness, No Numbness, No Paresthesias Yes all other systems are reviewed and are negative [facility] Past Medical History Attestation statement: The following information was validated with the patient. Medical History No known health problems Social History Social History Alcohol intake: never Patient Tobacco Use Status: Never used Tobacco Advance Directives: No Advance Directives Information Provided: No Physical Exam ED Vital Signs: Vital Signs - 24 hr 03/23/22 14:26 Temperature 96.9 F Pulse Rate 94 Respiratory Rate 18 Blood Pressure 158/80 H Pulse Oximetry 96 BMI result Body Mass Index 61.7 Const General: cooperative, healthy appearing and no acute distress Orientation/consciousness: patient oriented x3 Limitations: no limitations HENMT Head: Yes normal to inspection and Yes atraumatic Ears: hearing grossly normal bilaterally, external ears normal, TM's normal bilaterally and mastoids normal General nose exam: Normal external nose present and Normal nares present Face and sinus: Yes normal facial exam Mouth: Normal oral and palatal mucosa present Throat: Yes posterior oropharynx normal, Yes tonsils normal, Yes uvula midline and No peritonsillar mass Eyes General: appearance normal, both eyes and all related structures EOM: EOMs intact bilaterally Neck Neck: Yes normal visual inspection and Yes no meningeal signs Resp Effort & Inspection: normal respiratory effort and no respiratory distress Auscultation: clear to auscultation bilaterally, no rales, no rhonchi and no wheezes Cardio Rate: regular rate Heart sounds: S1 normal heart sound present and S2 normal heart sound present GI Inspection: Yes normal to inspection Palpation (GI): Soft to palpation, nontender, no guarding and not rigid Skin Rashes: no rashes Wounds: no wounds Neuro General: patient oriented x3, tone normal and no meningeal signs Gait exam (Neuro): Normal gait present Extrem General: Yes normal to inspection Course Course Course Narrative: COVID-19 and influenza negative Results discussed with patient including worrisome signs and symptoms and strict return precautions Medical Decision Making MDM Narrative Medical decision making narrative: 21-year-old female with no significant past medical history presenting to the ED complaining of right ear pain, diarrhea, generalized fatigue, abdominal cramping x4 days. On exam vital signs stable, NAD/nontoxic appearing, exam nonfocal, lungs CTA. Concern for viral illness vs gastroenteritis. Low concern for pneumonia, or appendicitis/diverticulitis Plan: COVID-19/influenza testing Medical Records Medical records reviewed: Yes I reviewed the patient's medical records. Lab Data Lab results reviewed: Yes I reviewed the patient's lab results. Labs: Lab Results 03/23/22 03/23/22 Range/Units 14:29 14:29 COVID-19 (RACHAEL) Negative (Negative) COVID-19 Clin Com See Note Influenza Type A (RADHA) Negative (Negative) Influenza Type B (RADHA) Negative (Negative) Influenza A & B Note See Note Discharge Plan Discharge Clinical Impression: Acute viral syndrome Patient Disposition: Home, Self-Care Instructions: Viral Syndrome (ED) Additional Instructions: You tested negative for COVID-19 and the flu Stay hydrated at home Rest Follow-up with her doctor If symptoms persist or worsen return to the emergency department Prescriptions: No Action desogestrel-ethinyl estradiol [Apri] 0.15-0.03 mg tablet 1 tab PO DAILY 0RF cholecalciferol (vitamin D3) 50 mcg (2,000 unit) tablet 1 tab PO DAILY 0RF famotidine [Pepcid] 20 mg tablet 20 mg PO BID Qty: 20 0RF omeprazole 40 mg capsule,delayed release(DR/EC) 40 mg PO BID 30 Days Qty: 60 0RF loperamide 2 mg tablet 2 mg PO Q4H PRN (Reason: loose stool) Qty: 14 0RF Rx Instructions: administer after each loose stool until symptoms controlled; do not exceed 8 mg per 24 hrs Referrals: Aundrea Starks [employer] [Primary Care Provider] -
== END 2022-03-23 16:53 | disposition home or self-care (01) ==
PROVIDERS: Emergency Provider Emergency Medicine; PCP Nurse Practitioner Primary Care
DX: B34.9 Viral infection, unspecified (principal); H92.01 Otalgia, right ear; R10.9 Unspecified abdominal pain; Z20.822 Contact with and (suspected) exposure to COVID-19; Z79.899 Other long term (current) drug therapy
CPT/HCPCS: 87502; 87635; 99283

== ENCOUNTER 2022-07-16 02:22 | Emergency (ER) | payer MEDICAID, SELFPAY ==
[2022-07-16 02:45] VITALS: BP 154/102; PULSE 94; RESP 22; TEMP 36.4; O2SAT 97; BMI 62.1
[2022-07-16 02:50] LABS: Hematocrit 39.7 % (37.0-47.0); Hemoglobin 12.1 g/dl (12.0-16.0); Mean Corpuscular HGB Conc 30.5 g/dl (31.0-35.0); Mean Corpuscular Hemoglobin 23.8 pg (27.0-33.0); Mean Platelet Volume 9.2 fL (9.4-12.3); Platelet Count 346 X10*3/uL (160-400); Red Blood Count 5.09 X10*6/uL (4.20-5.50); Red Cell Distribution Width 14.5 % (11.0-16.0); White Blood Count 11.1 X10*3/uL (4.8-10.8)
[2022-07-16 03:08] LABS: COVID-19 Test Negative (Negative)
[2022-07-16 03:10] LABS: Alanine Aminotransferase 18 U/L (0-31); Albumin Level 3.9 g/dL (3.5-5.0); Alkaline Phosphatase 99 U/L (39-117); Anion Gap 15 (12-20); Aspartate Amino Transferase 14 U/L (5-31); Bilirubin Total 0.3 mg/dL (0.0-1.0); Blood Urea Nitrogen 15 mg/dL (9-16); Calcium 9.3 mg/dL (8.4-10.2); Carbon Dioxide 28 mmol/L (22-29); Chloride 101 mmol/L (96-108); Estimated Glomerular Filt Rate > 60; Glucose Random 104 mg/dL (60-115); Potassium 4.3 mmol/L (3.3-5.1); Sodium 140 mmol/L (135-145); Total Protein 7.3 g/dL (6.5-8.0)
[2022-07-16 05:26] VITALS: BP 143/97; PULSE 93; RESP 16; TEMP 36.2; O2SAT 97
--- NOTE | 2022-07-16 05:50 | ECG_ITS ---
Test Reason : CHEST PAIN Blood Pressure : / mmHG Vent. Rate : 080 BPM Atrial Rate : 080 BPM P-R Int : 144 ms QRS Dur : 084 ms QT Int : 362 ms P-R-T Axes : -04 017 008 degrees QTc Int : 417 ms Normal sinus rhythm Low voltage QRS Borderline ECG When compared with ECG of 25-JAN-2022 21:36, No significant change was found Referred By: Generic ED Physician Electronically Signed By:DEEJAY GOMEZ
[2022-07-16 06:42] VITALS: PULSE 85
--- NOTE | 2022-07-16 06:46 | ED.CHESTPAIN ---
HPI - Chest Pain General Chief Complaint: Chest Pain Stated Complaint: burning sensation in stomach, n/v Time Seen by Provider: 07/16/22 06:46 Source: patient Mode of arrival: ambulatory Limitations: no limitations History of Present Illness HPI narrative: 22 yo female who used to have acid reflux - was on PPI 20m for 1 year but came off of it woke up last night with chest burning and increased acid vomited x 1. Not on OCPs MD complaint: chest pain (burning) Onset (ago): hour(s) (woke up around 2am ) Timing of current episode: other (decreased) Prior episodes: Yes Onset: during rest Pain location: substernal Pain radiation: none Severity: moderate Quality: burning Relieving factors: nothing Exacerbating factors: nothing Context: other (prior severe GERD) Associated symptoms: nausea and vomiting Treatment prior to arrival: none Related Data Home Medications Medication Instructions Recorded Confirmed cholecalciferol (vitamin D3) 50 1 tab PO DAILY 09/21/20 10/29/20 mcg (2,000 unit) tablet desogestrel 0.15 mg-ethinyl 1 tab PO DAILY 09/21/20 10/29/20 estradiol 0.03 mg tablet (Apri) Previous Rx's Medication Instructions Recorded famotidine 20 mg tablet (Pepcid) 20 mg PO BID #20 tabs 09/22/20 omeprazole 40 mg capsule,delayed 40 mg PO BID 30 days #60 caps 10/29/20 release loperamide 2 mg tablet 2 mg PO Q4H PRN loose stool #14 11/27/21 tabs famotidine 40 mg tablet (Pepcid) 40 mg PO BEDTIME #30 tabs 07/16/22 omeprazole 20 mg capsule,delayed 20 mg PO BID #60 caps 07/16/22 release Allergies Allergy/AdvReac Type Severity Reaction Status Date / Time Penicillins Allergy Unknown Verified 07/19/21 01:24 Review of Systems Review of Systems: Constitutional : No Weight loss, No Fever, No Chills ENT/Mouth : No sore throat, No Rhinorrhea Eyes: No Eye Pain, No Swelling Cardiovascular : pos Chest Pain, no SOB, no Dyspnea on Exertion, No Orthopnea, No Edema, No Palpitations Respiratory : No Cough, No Sputum Gastrointestinal : pos Nausea, pos Vomiting, No Diarrhea, No abdominal Pain, No Hematochezia, No Melena Genitourinary : No Dysuria, No Urinary Frequency Musculoskeletal : No joint pain, No Myalgias, No Joint Swelling Skin : No Skin Lesions, No rash Neuro : No Weakness, No Numbness, No Dizziness, No Headache Psych : No Anxiety/Panic, No Depression Heme/Lymph: No Bruising, No Lymphadenopathy Endocrine : No Polyuria, No Polydipsia All other systems reviewed and are negative [facility] Past Medical History Attestation statement: The following information was validated with the patient. Medical History (Updated 07/16/22 @ 07:33 by Amber Coyle DO) GERD (gastroesophageal reflux disease) No known health problems Social History Social History Alcohol intake: never Patient Tobacco Use Status: Never used Tobacco Use of substances other than those prescribed or required for medical reasons: No Advance Directives: No Physical Exam Vital Signs: Vital Signs: Last Vital Signs Temp 97.2 F 07/16/22 05:26 Pulse 93 07/16/22 05:26 Resp 16 07/16/22 05:26 BP 143/97 H 07/16/22 05:26 Pulse Ox 97 07/16/22 05:26 O2 Del Method 07/16/22 05:26 BMI result Body Mass Index 62.1 Appearance: Alert. Oriented X3. No acute distress. Eyes: Pupils equal, round and reactive to light. ENT: Pharynx normal. Neck: Normal inspection. Neck supple. CVS: Normal heart rate and rhythm. Pulses normal. Respiratory: No respiratory distress. Breath sounds normal. Abdomen: Soft and nontender. Skin: Skin warm and dry. Normal skin color. Normal skin turgor. Extremities: No lower extremity edema. No calf ttp Neuro: Oriented X 3. No motor deficit. No sensory deficit. MDM - Chest Pain MDM Narrative Medical decision making narrative: 22 yo female with hx of GERD used to be on PPI here with burning chest pain vomiting x 1 - no ACS risk factors, not on OCPs she states doubt PE. Suspect GERD. will obtain troponin, EKG, GI cocktail and start on Pepcid 40mg daily. Lab Data Result diagrams: 07/16/22 02:42 07/16/22 02:42 Labs: Lab Results 07/16/22 07/16/22 07/16/22 Range/Units 02:42 02:42 02:42 WBC 11.1 H (4.8-10.8) X10*3/uL RBC 5.09 (4.20-5.50) X10*6/uL Hgb 12.1 (12.0-16.0) g/dl Hct 39.7 (37.0-47.0) % MCV 78.0 L (80.0-98.0) fL MCH 23.8 L (27.0-33.0) pg MCHC 30.5 L (31.0-35.0) g/dl RDW 14.5 (11.0-16.0) % Plt Count 346 (160-400) X10*3/uL MPV 9.2 L (9.4-12.3) fL Absolute Nucleated RBC 0.000 (0.0-0.012) X10*3/uL Nucleated RBC % (auto) 0.0 (0.0-0.2) /100WBC Sodium 140 (135-145) mmol/L Potassium 4.3 (3.3-5.1) mmol/L Chloride 101 (96-108) mmol/L Carbon Dioxide 28 (22-29) mmol/L Anion Gap 15 (12-20) BUN 15 (9-16) mg/dL Creatinine 0.80 (0.5-1.4) mg/dL Estim Creat Clear Calc 182.0 Estimated GFR > 60 Random Glucose 104 (60-115) mg/dL Calcium 9.3 (8.4-10.2) mg/dL Total Bilirubin 0.3 (0.0-1.0) mg/dL AST 14 (5-31) U/L ALT 18 (0-31) U/L Alkaline Phosphatase 99 (39-117) U/L Troponin I High Sens (<3.5-17.0) ng/L Total Protein 7.3 (6.5-8.0) g/dL Albumin 3.9 (3.5-5.0) g/dL COVID-19 (RACHAEL) Negative (Negative) COVID-19 Clin Com See Note 07/16/22 Range/Units 07:12 WBC (4.8-10.8) X10*3/uL RBC (4.20-5.50) X10*6/uL Hgb (12.0-16.0) g/dl Hct (37.0-47.0) % MCV (80.0-98.0) fL MCH (27.0-33.0) pg MCHC (31.0-35.0) g/dl RDW (11.0-16.0) % Plt Count (160-400) X10*3/uL MPV (9.4-12.3) fL Absolute Nucleated RBC (0.0-0.012) X10*3/uL Nucleated RBC % (auto) (0.0-0.2) /100WBC Sodium (135-145) mmol/L Potassium (3.3-5.1) mmol/L Chloride (96-108) mmol/L Carbon Dioxide (22-29) mmol/L Anion Gap (12-20) BUN (9-16) mg/dL Creatinine (0.5-1.4) mg/dL Estim Creat Clear Calc Estimated GFR Random Glucose (60-115) mg/dL Calcium (8.4-10.2) mg/dL Total Bilirubin (0.0-1.0) mg/dL AST (5-31) U/L ALT (0-31) U/L Alkaline Phosphatase (39-117) U/L Troponin I High Sens < 3.5 (<3.5-17.0) ng/L Total Protein (6.5-8.0) g/dL Albumin (3.5-5.0) g/dL COVID-19 (RACHAEL) (Negative) COVID-19 Clin Com ECG Data ECG #1: Attestation: I personally reviewed and interpreted this ECG as follows: ECG interpretation date: 07/16/22 ECG interpretation time: 06:47 Interpretation: Rate: 80 Rhythm: NSR Palmer: normal Normal P waves. Normal REHANA. Normal QRS complex. ST T wave : inverted t wave III, no LARRY qTC: normal prior studies: no acute ischemia The study has been interpreted contemporaneously by me. . Discharge Plan Discharge Clinical Impression: GERD (gastroesophageal reflux disease) Patient Disposition: Home, Self-Care Instructions: Gastroesophageal Reflux Disease (ED) Additional Instructions: return to ED for any worsening symptoms or concerns - blood tests for heart were normal today avoid spicy greasy food, motrin, alcohol take pepcid if no improvement in 5 days switch to omeprazole Prescriptions: New famotidine [Pepcid] 40 mg tablet 40 mg PO BEDTIME Qty: 30 0RF omeprazole 20 mg capsule,delayed release(DR/EC) 20 mg PO BID Qty: 60 0RF No Action desogestrel-ethinyl estradiol [Apri] 0.15-0.03 mg tablet 1 tab PO DAILY cholecalciferol (vitamin D3) 50 mcg (2,000 unit) tablet 1 tab PO DAILY famotidine [Pepcid] 20 mg tablet 20 mg PO BID Qty: 20 0RF omeprazole 40 mg capsule,delayed release(DR/EC) 40 mg PO BID 30 Days Qty: 60 0RF loperamide 2 mg tablet 2 mg PO Q4H PRN (Reason: loose stool) Qty: 14 0RF Rx Instructions: administer after each loose stool until symptoms controlled; do not exceed 8 mg per 24 hrs Stand Alone Forms: Work/School Release
[2022-07-16] MEDS: Lidocaine HCl Viscous 2 % 15 ML SOLUTION MUCOUS MEM (07:19)
[2022-07-16] MEDS: Magnesium Hydrox/Alum Hydrox 30 ML ORAL.SUSP 15 ML PO (07:19)
[2022-07-16 07:45] LABS: Troponin-I High Sensitivity < 3.5 ng/L (<3.5-17.0)
== END 2022-07-16 08:04 | disposition home or self-care (01) ==
PROVIDERS: Emergency Provider Emergency Medicine; PCP Nurse Practitioner Primary Care
DX: K21.9 Gastro-esophageal reflux disease without esophagitis (principal); Z20.822 Contact with and (suspected) exposure to COVID-19
CPT/HCPCS: 36415; 80053; 84484; 85027; 87635; 93005; 99283; 99285

== ENCOUNTER → 2022-07-29 14:54 | Outpatient (REF) | payer MEDICAID, SELFPAY ==
--- NOTE | 2022-07-29 15:02 | CA_ITS ---
Transthoracic Echocardiogram Patient (Last, First, Middle): Sachi Miller, Gender: Female Date of : 2000 Age: 22 Procedure Date: 07/29/2022 Procedure Type: Transthoracic Echocardiogram Location: OP Height: 162.56 cm Weight: 165.56 kg BSA: 2.53 m2 Heart Rate: 89 bpm BP: 132 / mmHg Poultry Husbandry Teacher: ASIA Referring MD: Laura Vazquez MD Traffic Chief: Elia Danielson MD Symptoms: PALPITATIONS Study Quality: Technically Difficult/BSA/Contrast ECG Rhythm: Sinus Conclusions: - 1. Technically limited study despite use of contrast 2. Hyperdynamic LV systolic function with LVEF greater than 70% with normal diastolic filling 3. Normal cardiac valvular Dopplers Findings Procedure Information Contrast agent, definity, is being given per protocol without apparent complications. Left Ventricle Normal left ventricular cavity size. There is normal left ventricular wall thickness. The left ventricular systolic function is hyperdynamic. The visually estimated ejection fraction is >70%. Spectral Doppler is indicative of a normal filling pattern. Right Ventricle The right ventricle was not well visualized. Atria The left atrium was not well visualized. Interatrial shunt cannot be excluded. The right atrium was not well visualized. Aortic Valve The aortic valve was not well visualized. There is no aortic valve stenosis. There is no aortic valve regurgitation. Mitral Valve Likely normal mitral valve structure and function. There is trace mitral valve regurgitation. There is no mitral valve stenosis. Pulmonic Valve The pulmonic valve was not well visualized. Tricuspid Valve The tricuspid valve was not well visualized. Tricuspid regurgitation envelope is inadequate for calculation of right ventricular systolic pressure. Great Vessels The aorta was not well visualized. The pulmonary artery was not well visualized. Venous The inferior vena cava is normal in size and collapses greater than 50% with inspiration. Pericardium/Pleural The pericardium was not well visualized. There is no evidence of pericardial effusion. Prior Study Comparison No prior study available for comparison. Measurements M-Mode Liner Measurements Normals - Women/Men IVSd: 1.00 0.6-0.9/0.6-1.0 cm LVIDd: 4.77 3.9-5.3/4.2-5.9 cm LVIDs: 3.18 2.0-3.8 cm LVPWd: 0.90 0.6-0.9/0.6-1.0 cm LA Diam: 4.10 2.7-3.8/3.0-4.0 cm 2D Linear Measurements IVSd: 0.97 0.6-0.9/0.6-1.0 cm LVIDd: 5.03 3.9-5.3/4.2-5.9 cm LVIDd Index: 1.99 2.4-3.2/2.2-3.1 cm/m2 LVIDs: 3.16 2.0-3.6 cm LVPWd: 0.85 0.7-1.1 cm LA Diam: 4.10 2.7-3.8/3.0-4.0 cm LAIDs Index: 1.62 1.5-2.3 cm/m2 LV Mass: 201.19 67-162/88-224 g LV Mass Index: 79.52 43-95/49-115 g/m2 LVOT Diam: 2.30 3.0+(-)1.3 cm 2D Volumes LA ESV A/L: 14.60 22-52/18-58 ML/M2 2D Systolic Function EF 4C: 83.00 >55% EF 2C: 72.50 >55% EF BiP: 78.00 >55% Mitral Valve MV Pk E: 0.92 MV PK A: 0.58 MV Decel Time: 174.00 E/A: 1.60 E'Lateral: 13.50 E'Medial: 11.70 E/E' Med: 7.90 E/E' Lat: 6.80 PHT: 51.00 MVA PHT: 4.31 Decel [place]: 5.30 Aortic Valve AoV Pk Rio: 1.54 AoV Mn Rio: 1.04 AoV VTI: 0.27 AoV Pk Grad: 9.00 Aov Mn Grad: 5.00 NORBERTO Cont.VTI: 2.94 LVOT LVOT Pk Rio: 1.04 LVOT Mn Rio: 0.77 LVOT VTI: 0.19 LVOT Pk Grad: 4.00 LVOT Mn Grad: 3.00 LVOT Diam: 2.30 LVOT Area: 4.15 Diastolic Function MV Pk E: 0.92 MV Pk A: 0.58 E/A: 1.60 E'Medial: 11.70 E/E' Med: 7.90 E' Laterial: 13.50 E/E' Lat: 6.80 Right Ventricle TAPSE (mm): 22.60 TVS' Rio: 14.00 Great Vessels Aorta Sinus of Valsalva: 2.70 2.0-3.5 cm Ao Asc: 2.50 2.1-3.4 cm Ao Arch: 2.50 Pulmonary Valve PV Pk Rio: 1.19 Peak PV Grad: 6.00 Updated in Other Vendor System with Status of Final Elia Danielson MD electronically signed on 07/29/2022 5:05:50 PM with status of Final
== END ==
LOC: HO.CARD 14:54
PROVIDERS: Visit Provider Internal Medicine Cardiovascular Disease
DX: R00.2 Palpitations (principal)
CPT/HCPCS: 93306; Q9957

== ENCOUNTER 2024-08-23 02:31 | Emergency (ER) | payer MEDICAID, SELFPAY ==
--- NOTE | ~2024-08-23 | CT_ITS ---
EXAMINATION: CT TEMPORAL BONE WITHOUT IV CONTRAST CLINICAL INFORMATION: otitis externa, masstoid bone tendernes Left COMPARISON: None. TECHNIQUE: Unenhanced temporal bone CT Intravenous Contrast: None This CT examination was performed using dose optimization techniques as appropriate, variously including the following: *Automated exposure control *Adjustment of mA and/or kV according to patient size (this includes techniques or standardized protocols for targeted exams where dose is matched to indication/reason for exam; i.e. extremities or head) *Use of iterative reconstruction technique DLP: 289 mGy-cm FINDINGS: Concentric soft tissue density is present in the left external auditory canal. Partial opacification of the left middle ear cavity is present with soft tissue density in the medial tympanum and hypotympanum. No ossicular chain disruption or erosions noted. Intact fusion. The tegmen tendinitis intact. Normal appearance of the left inner ear structures. No mastoid erosions identified. No periosteal reaction of the mastoid noted adjacent to the external auditory canal. Note left-sided temporomandibular joint arthropathic changes. The left mastoid air cells are clear. Normal course of the left right internal auditory canals. No high riding jugular bulbs. Normal appearance of the right temporal bones. Visualized paranasal sinuses demonstrate no significant opacification. Intracranial structures are not well visualized given the temporal bone technique employed for this examination and imaging is better reconstructed. Traction of the left tympanic membrane noted. CT/CT mastoid IMPRESSION: Findings suspicious for left otitis externa and left otitis media. No evidence of malignant mastoiditis. No evidence of mastoiditis. No mastoid or temporal bone erosions. Mastoid air cells are clear. No ossicular erosions or disruptions. The left middle ear opacification could alternatively be secondary to an otherwise occult cholesteatoma. However, findings are most suspicious for infection. Electronically signed by: Cheo Coughlin MD 08/23/2024 04:55 AM EDT
[2024-08-23 02:34] VITALS: BP 152/91; PULSE 90; RESP 18; TEMP 36.4; O2SAT 98; BMI 60.5
--- NOTE | 2024-08-23 02:42 | PC.NURSE ---
Left ear canal is completely red/inflammed. Unable to visualize entire ear canal due to significant swelling. Some white matter in the ear is visible, even without otoscope. Has used ear drops that were prescribed multiple times without relief. Seen at urgent care yesterday.
--- NOTE | 2024-08-23 03:35 | PC.NURSE ---
Per provider do not give abx until HCG comes back
[2024-08-23 03:36] LABS: Basophils Percent Auto 0.2 % (0-2); Eosinophils Absolute Auto 0.2 X10*3/uL (0.0-0.4); Eosinophils Percent Auto 1.4 % (0-4); Hemoglobin 12.4 g/dl (12.0-16.0); Imm Gran Abs Auto 0.03 X10*3/uL (0.00-0.03); Imm Gran Pct Auto 0.3 % (0.0-0.4); Lymphocytes Absolute Auto 2.2 X10*3/uL (1.2-4.9); Lymphocytes Percent Auto 18.8 % (20-40); MANUAL DIFF FLAG NO; Mean Corpuscular Hemoglobin 25.1 pg (27.0-33.0); Mean Platelet Volume 9.2 fL (9.4-12.3); Monocytes Absolute Auto 0.5 X10*3/uL (0.1-1.2); Monocytes Percent Auto 4.1 % (2-11); Neutrophils Percent Auto 75.2 % (45-73); Platelet Count 336 X10*3/uL (160-400); Red Blood Count 4.94 X10*6/uL (4.20-5.50); Red Cell Distribution Width 14.1 % (11.0-16.0); White Blood Count 11.9 X10*3/uL (4.8-10.8)
[2024-08-23 03:57] LABS: Anion Gap 11 (12-20); Blood Urea Nitrogen 9 mg/dL (9-16); C Reactive Protein 6.85 mg/dL (< or = 0.50); Calcium 9.3 mg/dL (8.4-10.2); Carbon Dioxide 27 mmol/L (22-29); Chloride 105 mmol/L (96-108); Creatinine Clr Calc Pharmacy 187.5; Estimated Glomerular Filt Rate > 60; Glucose Random 119 mg/dL (60-115); Potassium 3.8 mmol/L (3.3-5.1); Sodium 139 mmol/L (135-145)
[2024-08-23 04:01] LABS: HCG Quantitative < 2 mIU/mL
[2024-08-23 04:08] LABS: Erythrocyte Sedimentation Rate 44 MM/HR (0-20)
[2024-08-23] MEDS: Ketorolac Tromethamine 60 MG/2 ML VIAL IM (04:15)
[2024-08-23] MEDS: levoFLOXacin 750 MG TABLET PO (04:15)
[2024-08-23 05:17] VITALS: BP 126/74; PULSE 76; RESP 20; TEMP 36.5; O2SAT 97
--- NOTE | 2024-08-23 05:48 | ED_ITS ---
HPI - Ear Problem General Chief complaint: Ear Problems Stated complaint: Left ear pain Time Seen by Provider: 08/23/24 03:07 Source: patient Mode of arrival: ambulatory Limitations: no limitations History of Present Illness ED Provider: Dr. Anila Vazquez HPI Narrative: Patient comes to the emergency room complaining of severe left ear pain. Patient states that she went to urgent Care, given antibiotics with steroids to put in the ear canal. However, patient states that the medication runs out because it is too inflamed almost shut closed. Patient denies swimming. Patient denies fever chills. Patient has pain all around the ear including the mastoid bone. Related Data Home Medications ?Medication ?Instructions ?Recorded ?Confirmed cholecalciferol (vitamin D3) 50 1 tab PO DAILY 09/21/20 10/29/20 mcg (2,000 unit) tablet desogestrel 0.15 mg-ethinyl 1 tab PO DAILY 09/21/20 10/29/20 estradiol 0.03 mg tablet (Apri) Previous Rx's ?Medication ?Instructions ?Recorded famotidine 20 mg tablet (Pepcid) 20 mg PO BID #20 tabs 09/22/20 omeprazole 40 mg capsule,delayed 40 mg PO BID 30 days #60 caps 10/29/20 release loperamide 2 mg tablet 2 mg PO Q4H PRN loose stool #14 11/27/21 tabs famotidine 40 mg tablet (Pepcid) 40 mg PO BEDTIME #30 tabs 07/16/22 omeprazole 20 mg capsule,delayed 20 mg PO BID #60 caps 07/16/22 release ketorolac 10 mg tablet 10 mg PO Q8H PRN pain #12 tabs 08/23/24 levofloxacin 750 mg tablet 750 mg PO DAILY #9 tabs 08/23/24 Allergies Allergy/AdvReac Type Severity Reaction Status Date / Time Penicillins Allergy Unknown Verified 08/23/24 02:36 Review of Systems 2 Review of Systems: Constitutional : No Weight loss, No Fever, No Chills, No Night Sweats, No Fatigue, No Malaise ENT/Mouth : No Hearing loss, complaining of ear pain and ear canals swelling No Nasal Congestion, No Sinus Pain, No Hoarseness, No sore throat, No Rhinorrhea, No Swallowing Difficulty Eyes: No Eye Pain, No Swelling, No Redness, No Foreign Body, No Discharge, No Vision Changes Cardiovascular : No Chest Pain, No SOB, No Dyspnea on Exertion, No Orthopnea, No Edema, No Palpitations Respiratory : No Cough, No Sputum, No Wheezing, No Smoke Exposure, No Dyspnea Gastrointestinal : No Nausea, No Vomiting, No Diarrhea, No Constipation, No abdominal Pain, No Hematochezia, No Melena Genitourinary : no irregular bleeding, No Dysuria, No Urinary Frequency, No Hematuria, No Urinary Incontinence, No Urgency, No Flank Pain, No Urinary Flow Changes, No Hesitancy Musculoskeletal : No joint pain, No Myalgias, No Joint Swelling Skin : No Skin Lesions, No rash Neuro : No Weakness, No Numbness, No Paresthesias, No Loss of Consciousness, No Dizziness, No Headache Psych : No Anxiety/Panic, No Depression, No SI/HI/AH/VH, No Social Issues, Heme/Lymph: No Bruising, No Bleeding,No Lymphadenopathy Endocrine : No Polyuria, No Polydipsia, No Temperature Intolerance PMFSH Past Medical History Medical History GERD (gastroesophageal reflux disease) No known health problems Social History Social History Alcohol intake: never Patient Tobacco Use Status: Never used Tobacco Advance Directives: No Advance Directives Information Provided: No Physical Exam 2 Vital Signs: Vital Signs: Last Vital Signs Temp 97.7 F 08/23/24 05:17 Pulse 76 08/23/24 05:17 Resp 20 08/23/24 05:17 BP 126/74 08/23/24 05:17 Pulse Ox 97 08/23/24 05:17 O2 Del Method Room Air 08/23/24 05:17 BMI result Body Mass Index 60.5 Const: Other: Appearance: Alert. Oriented X3. No acute distress. Eyes: Pupils equal, round and reactive to light. ENT: Pharynx normal. Right ear canal within normal limits. Left ear canal I could not see the tympanic membrane, the ear canal is almost closed shot. Pain to palpation over the mastoid bone. Neck: Normal inspection. Neck supple. No lymph nodes noted. No crepitus CVS: Normal heart rate and rhythm. Pulses normal. Normal S1 and S2 Respiratory: No respiratory distress. Breath sounds normal. No Wheezing. No rales Abdomen: Soft and nontender. No rigidity. No distention. Skin: Skin warm and dry. Normal skin color. Normal skin turgor. Extremities: No lower extremity edema. No Lacerations. No Rash Neuro: Oriented X 3. No motor deficit. No sensory deficit. Moving all extremities. No slurred speech. CN 2 through 12 grossly intact Psych: calm, cooperative, normal affect Medications Administered Discontinued Medications Generic Name Dose Route Start Last Admin Trade Name Albert PRN Reason Stop Dose Admin Ketorolac Tromethamine 60 mg 08/23/24 04:09 08/23/24 04:15 Ketorolac Tromethamine 60 Mg/2 Ml Vial IM 08/23/24 04:10 60 mg ONCE ONE Administration Levofloxacin 750 mg 08/23/24 03:24 08/23/24 04:15 Levofloxacin 750 Mg Tablet PO 08/23/24 03:25 750 mg ONCE ONE Administration Medical Decision Making Medical Decision Making [facility] Narrative: Patient was given IM Toradol for pain control. -my interpretation of labs, patient's white blood cell count 11.9, patient has chronic leukocytosis, ESR 44, CRP 6.8. HCG negative, chemistry within normal limits. -my interpretation of CT scan of the mastoid bone: I do not see any findings of osteomyelitis. -CT scan report, no osteomyelitis, findings suspicious for left otitis externa and otitis media. -patient is alert penicillin. -patient was given levofloxacin here in the emergency room p.o.. -an otic wick was inserted into the patient's ear. Patient instructed to continue taking the optic medications that she was prescribed yesterday. Also, patient to be taking p.o. antibiotics. Differential Diagnosis Differential Diagnoses: The differential diagnosis associated with the presentation includes (Otitis media, externa, mastoiditis) Admission/Observation Consideration of admission/observation: Escalation of care including admission/observation considered (Given patient's presentation, admission was considered) Lab Data [facility] Lab Attestation statement: I reviewed the patient's lab results. 08/23/24 03:26 08/23/24 03:26 Labs: Lab Results 08/23/24 Range/Units 03:26 WBC 11.9 H (4.8-10.8) X10*3/uL RBC 4.94 (4.20-5.50) X10*6/uL Hgb 12.4 (12.0-16.0) g/dl Hct 40.0 (37.0-47.0) % MCV 81.0 (80.0-98.0) fL MCH 25.1 L (27.0-33.0) pg MCHC 31.0 (31.0-35.0) g/dl RDW 14.1 (11.0-16.0) % Plt Count 336 (160-400) X10*3/uL MPV 9.2 L (9.4-12.3) fL Immature Gran % (Auto) 0.3 (0.0-0.4) % Neut % (Auto) 75.2 H (45-73) % Lymph % (Auto) 18.8 L (20-40) % [place] % (Auto) 4.1 (2-11) % Eos % (Auto) 1.4 (0-4) % Baso % (Auto) 0.2 (0-2) % Lymph # (Auto) 2.2 (1.2-4.9) X10*3/uL [place] # (Auto) 0.5 (0.1-1.2) X10*3/uL Eos # (Auto) 0.2 (0.0-0.4) X10*3/uL Baso # (Auto) 0.0 (0.0-0.2) X10*3/uL Abs Immat Gran (auto) 0.03 (0.00-0.03) X10*3/uL Absolute Neuts (auto) 9.0 H (2.0-8.3) x10*3/uL Absolute Nucleated RBC 0.000 (0.0-0.012) X10*3/uL Nucleated RBC % (auto) 0.0 (0.0-0.2) /100WBC ESR 44 H (0-20) MM/HR Sodium 139 (135-145) mmol/L Potassium 3.8 (3.3-5.1) mmol/L Chloride 105 (96-108) mmol/L Carbon Dioxide 27 (22-29) mmol/L Anion Gap 11 L (12-20) BUN 9 (9-16) mg/dL Creatinine 0.75 (0.5-1.4) mg/dL Estim Creat Clear Calc 187.5 Estimated GFR > 60 Random Glucose 119 H (60-115) mg/dL Calcium 9.3 (8.4-10.2) mg/dL C-Reactive Protein 6.85 H (< or = 0.50) mg/dL Beta HCG, Quant < 2 mIU/mL Hold Red Top See Note Independent Interpretation I performed an independent interpretation of an: CT Scan Radiology Impression Discussion of test interpretation with radiology: I have reviewed the radiologist's reading. Radiologist Impression: FINDINGS: Concentric soft tissue density is present in the left external auditory canal. Partial opacification of the left middle ear cavity is present with soft tissue density in the medial tympanum and hypotympanum. No ossicular chain disruption or erosions noted. Intact fusion. The tegmen tendinitis intact. Normal appearance of the left inner ear structures. No mastoid erosions identified. No periosteal reaction of the mastoid noted adjacent to the external auditory canal. Note left-sided temporomandibular joint arthropathic changes. The left mastoid air cells are clear. Normal course of the left right internal auditory canals. No high riding jugular bulbs. Normal appearance of the right temporal bones. Visualized paranasal sinuses demonstrate no significant opacification. Intracranial structures are not well visualized given the temporal bone technique employed for this examination and imaging is better reconstructed. Traction of the left tympanic membrane noted. CT/CT mastoid IMPRESSION: Findings suspicious for left otitis externa and left otitis media. No evidence of malignant mastoiditis. No evidence of mastoiditis. No mastoid or temporal bone erosions. Mastoid air cells are clear. No ossicular erosions or disruptions. The left middle ear opacification could alternatively be secondary to an otherwise occult cholesteatoma. However, findings are most suspicious for infection. Critical Care Time Critical Care Time Critical Care Time: Yes Total Critical Care Time: 45 Attestation: I have personally provided critical care time. Time includes review of lab data, radiology results, discussion with consultants, and monitoring for potential decompensation. Intervention performed as documented. Discharge Plan Discharge Clinical Impression: Otitis externa, Otitis media Patient Disposition: Home, Self-Care Instructions: Otitis Externa (ED), How to Use Ear Drops (ED), Ear Infection (ED) Additional Instructions: Please follow-up with your primary care physician tomorrow. If you have any worsening or new symptoms, please return to the emergency room or call 911 Prescriptions: New levofloxacin 750 mg tablet 750 mg PO DAILY Qty: 9 0RF ketorolac 10 mg tablet 10 mg PO Q8H PRN (Reason: pain) Qty: 12 0RF Rx Instructions: maximum total duration of 5 days from all oral, intranasal, or parenteral formulations. Do not use with NSAIDs No Action desogestrel-ethinyl estradiol [Apri] 0.15-0.03 mg tablet 1 tab PO DAILY cholecalciferol (vitamin D3) 50 mcg (2,000 unit) tablet 1 tab PO DAILY famotidine [Pepcid] 20 mg tablet 20 mg PO BID Qty: 20 0RF omeprazole 40 mg capsule,delayed release(DR/EC) 40 mg PO BID 30 Days Qty: 60 0RF loperamide 2 mg tablet 2 mg PO Q4H PRN (Reason: loose stool) Qty: 14 0RF Rx Instructions: administer after each loose stool until symptoms controlled; do not exceed 8 mg per 24 hrs famotidine [Pepcid] 40 mg tablet 40 mg PO BEDTIME Qty: 30 0RF omeprazole 20 mg capsule,delayed release(DR/EC) 20 mg PO BID Qty: 60 0RF Print Language: Slovenian
[2024-08-23 06:12] VITALS: BP 120/66; PULSE 83; RESP 18; TEMP 36.3; O2SAT 99
== END 2024-08-23 06:13 | disposition home or self-care (01) ==
PROVIDERS: Emergency Provider Emergency Medicine; PCP Nurse Practitioner Primary Care
DX: H60.92 Unspecified otitis externa, left ear (principal); H66.93 Otitis media, unspecified, bilateral; H92.02 Otalgia, left ear
CPT/HCPCS: 36415; 70481; 80048; 84702; 85025; 85652; 86140; 96372; 99284; J1885

== ENCOUNTER 2024-08-28 12:08 | Outpatient (REF) | payer MEDICAID, SELFPAY ==
[2024-08-28 13:21] LABS: MANUAL DIFF FLAG NO
[2024-08-28 13:39] LABS: Basophils Percent Auto 0.2 % (0-2); Eosinophils Absolute Auto 0.1 X10*3/uL (0.0-0.4); Eosinophils Percent Auto 1.5 % (0-4); Hematocrit 39.4 % (37.0-47.0); Hemoglobin 12.4 g/dl (12.0-16.0); Imm Gran Abs Auto 0.04 X10*3/uL (0.00-0.03); Imm Gran Pct Auto 0.4 % (0.0-0.4); Lymphocytes Absolute Auto 2.3 X10*3/uL (1.2-4.9); Lymphocytes Percent Auto 24.2 % (20-40); Mean Corpuscular HGB Conc 31.5 g/dl (31.0-35.0); Mean Corpuscular Volume 79.4 fL (80.0-98.0); Mean Platelet Volume 9.4 fL (9.4-12.3); Monocytes Absolute Auto 0.3 X10*3/uL (0.1-1.2); Neutrophils Absolute Auto 6.7 x10*3/uL (2.0-8.3); Neutrophils Percent Auto 70.7 % (45-73); Platelet Count 385 X10*3/uL (160-400); Red Blood Count 4.96 X10*6/uL (4.20-5.50); Red Cell Distribution Width 13.8 % (11.0-16.0); White Blood Count 9.4 X10*3/uL (4.8-10.8)
[2024-08-28 14:14] LABS: Erythrocyte Sedimentation Rate 65 MM/HR (0-20)
[2024-08-28 14:34] LABS: Alanine Aminotransferase 24 U/L (0-31); Alkaline Phosphatase 111 U/L (39-117); Anion Gap 14 (12-20); Aspartate Amino Transferase 15 U/L (5-31); Bilirubin Direct 0.2 mg/dL (0.0-0.5); Bilirubin Total 0.3 mg/dL (0.0-1.0); Blood Urea Nitrogen 13 mg/dL (9-16); C Reactive Protein 3.27 mg/dL (< or = 0.50); Calcium 9.7 mg/dL (8.4-10.2); Carbon Dioxide 26 mmol/L (22-29); Chloride 105 mmol/L (96-108); Cholesterol 151 mg/dL (<200); Estimated Glomerular Filt Rate > 60; Glucose Random 83 mg/dL (60-115); HDL Cholesterol 32 mg/dL (>40); LDL Cholesterol Calculated 102 mg/dL (<100); Sodium 141 mmol/L (135-145); Triglycerides 87 mg/dL (<150)
[2024-08-28 14:39] LABS: Creatinine Urine 191.76 mg/dL; Microalbum/Creatinine Ratio Ur 3.6 ug/mg cr (<30)
[2024-08-29 08:19] LABS: Syphilis Screen Nonreactive (Nonreactive)
[2024-08-29 08:30] LABS: HIV AB/AG Nonreactive (Nonreactive); HIV Num 1 0.06 S/CO (0.00-0.99); ~HepC Num1 0.18 S/CO (0.00-0.79); ~Hepatitis C Antibody Nonreactive (Nonreactive)
== END 2024-08-28 12:09 | disposition home or self-care (01) ==
LOC: HO.HHCL 12:08
PROVIDERS: PCP Nurse Practitioner Primary Care; Visit Provider Internal Medicine
DX: Z00.00 Encounter for general adult medical examination without abnormal findings (principal); I10 Essential (primary) hypertension; E66.01 Morbid (severe) obesity due to excess calories; Z68.44 Body mass index [BMI] 60.0-69.9, adult; Z13.220 Encounter for screening for lipoid disorders; H60.22 Malignant otitis externa, left ear
CPT/HCPCS: 36415; 80048; 80061; 80076; 82043; 82570; 85025; 85652; 86140; 86780; 86803; 87389

== ENCOUNTER 2024-09-02 14:50 | Outpatient (REF) | payer MEDICAID, SELFPAY ==
[2024-09-02 17:42] LABS: TSH reflex Free T4 1.81 uIU/mL (0.32-4.0)
[2024-09-03 16:58] LABS: Prolactin 9.4 ng/mL
[2024-09-07 12:49] LABS: Testosterone, Total 21 ng/dL (2-45)
[2024-09-09 15:17] LABS: C. trachomatis RNA TMA NOT DETECTED; Trichomonas (NAAT) NOT DETECTED
[2024-09-09 15:18] LABS: N. gonorrhoeae RNA TMA NOT DETECTED
== END 2024-09-02 14:51 | disposition home or self-care (01) ==
LOC: HO.HHCL 14:50
PROVIDERS: Visit Provider Advanced Practice Midwife
DX: N92.6 Irregular menstruation, unspecified (principal); Z12.4 Encounter for screening for malignant neoplasm of cervix; Z11.3 Encounter for screening for infections with a predominantly sexual mode of transmission
CPT/HCPCS: 36415; 84146; 84403; 84443; 87491; 87591; 87661; 88175

== ENCOUNTER 2025-01-14 08:37 | Outpatient (AMB) | payer OTHER, SELFPAY ==
--- NOTE | 2025-01-14 08:48 | A.OFFVIS_ITS ---
Vital Signs 01/14/25 08:55 Height 5 ft 6 in Weight 365 lb BMI 58.9 BP 132/78 Intake Visit Reasons: New Pt Colpo/External Referral Intake Note: Last pap smear August of 2024, abnormal. Import/Export Analyst: Import/Export Analyst Present (BUBBA Piedra) Accompanied by: Self / Same As Patient Allergies Penicillins Allergy (Verified 01/14/25 08:54) Unknown HPI Comments Details: The patient is presenting referred from [facility] regarding abnormal Pap smear done in 09/01/2024 which showed LSIL rule out more advanced lesion, the patient traveled to the [facility] had a colposcopy and EMB in September/2024, the pathology report is in Polish , it showed a cervical biopsy AWA 1 and endometrial biopsy showing simple endometrial hyperplasia with no atypia. The patient was started on Depo-Provera 150 mg x 1, last was was given in September 2024, and on Provera 20 mg p.o. q.d. for 3 months last dose was 2 weeks ago, the patient had her menstrual cycle few days ago. The patient gives a long-term history of oligomenorrhea with no associated hair growth, nipple discharge or any other symptoms 09/05 total testosterone, TSH and prolactin were normal [facility] Medical History (Updated 01/14/25 @ 09:26 by Chaim Aguilar MD) LGSIL on Pap smear of cervix GERD (gastroesophageal reflux disease) No known health problems Family History (Updated 01/13/25 @ 08:21 by BUBBA Rueda) Mother Diabetes Sleep apnea Maternal Grandfather Diabetes Sister Diabetes Paternal Grandmother HTN (hypertension) Paternal Aunt HTN (hypertension) Social History Alcohol intake: never Patient Tobacco Use Status: Never used Tobacco Female Reproductive History Menstrual Age of Menarche: 16 Duration of menses: 8-10 days Date of last menstrual period: 01/14/25 Total pregnancies: 0 History of abnormal pap smear: Yes Review of Systems Const All systems reviewed & are unremarkable except as noted in HPI and below Physical Exam Vital Signs: Last Vital Signs BP 132/78 01/14/25 08:55 BMI result Body Mass Index 58.9 General: Yes no CVA tenderness External Female Exam: normal external appearance and normal appearance of the urethra Speculum Exam - Vagina: normal appearance of the vagina, normal palpation, no lesions and no masses Speculum Exam - Cervix: normal appearance of the cervix, normal palpation, no lesions, no masses and nontender Bimanual exam- vagina & uterus: normal bimanual exam, normal palpation, uterine size normal, normal palpation, uterine shape normal, No Cervical tenderness present and non-tender Bimanual Exam- Adnexa, other: normal adnexae Back/Spine/Pelvis Back: no CVA tenderness Office Procedures Colposcopy Colposcopy: Pre-Procedure Counseling: Before beginning the procedure, I conducted comprehensive counseling with the patient. We thoroughly discussed the procedure itself, including its details, alternatives, and all associated risks. This included but not limited to the following complications such as bleeding, infection, and injury to the vagina, bladder, and vessels, as well as the potential need for transfusion with all its associated risks. Subsequently, the patient sign the consent. Pap smear result: LSIL can not rule out worse lesion. Urine test in office = Negative Procedure: During the procedure, the following steps were performed: A speculum was inserted, and acetic acid was applied. Colposcopy was conducted, allowing visualization of the transformation zone. Acetowhite lesions were identified at the 4+ 6+ 12 o'clock position. Cervical biopsies were obtained from the 4+ 6+ 12 o'clock position, followed by an endocervical curettage (ECC). Vaginoscopy of the upper vagina revealed no evidence of aceto-white lesions. Hemostasis was achieved using Monsel solution, and the patient tolerated the procedure well. Post-Procedure Instructions: The patient was advised to promptly contact the office or the after hours answering service or go to the emergency room if experiencing a temperature exceeding 100.4?F, abdominal pain, nausea/vomiting, or bleeding. Additionally, the patient was instructed to abstain from vaginal intercourse and bathtub use. The patient confirmed understanding of these instructions. Discharge Instructions: The patient was instructed to schedule a follow-up appointment in 2 weeks for further evaluation and management. Please note that this note was generated using a voice recognition program, and errors may have occurred during tenderizer tender. 24519-Vzcsjwftz of cervix including upper vagina with biopsy and ECC Procedure code (CPT) selection complete Endometrial Biopsy Details: The patient was counseled regarding the indication and benefits of endometrial sampling to rule out endometrial pathology including not limited to endometrial hyperplasia or endometrial cancer and others; The alternatives (Either do nothing vs. hysteroscopy D&C) & the risks were discussed with the patient including but not limited: pain, uterine perforation, bleeding, infection, possible injury to bladder, bowel, ureter, possible need for blood transfusion with all its possible risks. The patient verbalized understanding all questions answered and signed consent. Urine test done in the office was negative The patient was placed into the dorsal lithotomy position; a speculum was inserted in the vagina. Using aseptic technique for the procedure, the cervix was cleansed with Betadine. The anterior lip of the cervix was grasped with a single tooth tenaculum. The uterus was sounded to 7 cm with a 4 mm Pipelle was used. Tissues samples were obtained and placed in formalin, in a patient labeled container and sent to the pathology department. At the end of the procedure, there was minimal bleeding noted The patient tolerated the procedure well and was discharged in good condition with the following instructions: Nothing in the vagina until the bleeding stops. No sex until the bleeding stops, to call if any of the following occurs: fever (>100.4), flu-like symptoms, abdominal pain, heavy bleeding, four smelling vaginal discharge. The patient was instructed to schedule a Follow up appointment in 2 weeks to discuss pathology results of the biopsy and treatment options. This note was generated with a voice recognition program. Some errors may have been overlooked during the review of this note. Sometimes these errors may affect the content or meaning of a given sentence. 44112-Txfdliyllgc Biopsy Assessment & Plan Assessment & Plan (1) LGSIL on Pap smear of cervix: Comment: 09/05 Can not exclude high-grade PENNY 10/[address] BILLINGS 1, no ECC done Code(s): R87.612 - Low grade squamous intraepithelial lesion on cytologic smear of cervix (LGSIL) Category: Medical Plan: Since ECC was not done, Pap smear repeated and colposcopy/biopsy/ECC done, see procedure note (2) Endometrial hyperplasia without atypia, simple: Comment: Status post Depo-Provera the was in 10/06, on Provera 20 mg q.d. x3 months Code(s): N85.01 - Benign endometrial hyperplasia Category: Medical Plan: EMB repeated, see procedure (3) Abnormal uterine bleeding (AUB): Comment: rule out PCOS Code(s): N93.9 - Abnormal uterine and vaginal bleeding, unspecified Category: Medical Plan: GC and chlamydia taken CBC, HCG, 17 hydroxyprogesterone, testosterone total and free, and pelvic ultrasound ordered. Discussed with the patient the different causes of abnormal bleeding including thyroid disorders, uterine and ovarian pathology, endometrial hyperplasia, carcinoma and other potential causes. Discussed with the patient the work up including CBC (to r/o anemia), TSH, prolactin , testosterone total and free (done in 09/05 and within normal), 17 hydroxyprogesterone pelvic Ultrasound, endometrial biopsy to r/o endometrial pathology. All questions answered and the patient verbalized understanding. Instructed the patient to schedule an appointment for an endometrial biopsy in 2 weeks. Orders: Orders Testosterone, Free/Total Today N93.9 - Abnormal uterine and vaginal bleeding, unspecified AMB Colposcopy Today R87.612 - Low grade squamous intraepithelial lesion on cytologic smear of cervix (LGSIL) AMB Endometrial Biopsy Today N85.01 - Benign endometrial hyperplasia Complete Blood Count no Diff Today N93.9 - Abnormal uterine and vaginal bleeding, unspecified US pelvic and transvaginal Today N93.9 - Abnormal uterine and vaginal bleeding, unspecified 17 Hydroxyprogesterone Today N93.9 - Abnormal uterine and vaginal bleeding, unspecified Coding Level of Care Code New Pt Level 3 (47275) Procedure Only Diagnoses LGSIL on Pap smear of cervix R87.612 Endometrial hyperplasia without atypia, simple N85.01 Abnormal uterine bleeding (AUB) N93.9 CPT Codes Colposcopy - CPT: 30615-Pxkzyyeho of cervix including upper vagina with biopsy and ECC ([id number]) Endometrial Biopsy - CPT: 27834-Hzgbczthhel Biopsy ([id number])
[2025-01-14 08:55] VITALS: BP 132/78; BMI 58.9
--- OUTSIDE RECORDS SUMMARY | 2025-01-14 09:11 | XMS_ITS | Clinical Summary ---
Author Organization [facility] Address [id number] [place] [id number] Care Team Providers Care Metals Analyst Name Role Phone Unavailable Primary Care Provider Unavailabl e Social History Tobacco Use Types Packs/Day Years Used Date Smoking Tobacco: Never Assessed Comments Unknown Sex and Gender Information Value Date Recorded Sex Assigned at Not on file Legal Sex Female 11:29 AM EST Gender Identity Not on file Sexual Orientation Not on file Plan of Treatment Health Maintenance Due Date Last Done Comments HPV Vaccines (1 - 3-dose series) 2014 DTaP,Tdap,and Td Vaccines (1 - Tdap) 2018 Hepatitis B Vaccines (1 of 3 - 19+ 3-dose series) 2018 Cervical Cancer Screening: P ap Smear 2020 Depression Screening 10/11/2022 HIV Screening 10/11/2022 Hepatitis C Screening 10/11/2022 Social Influencers of Health Screening 10/11/2022 COVID-19 Vaccine ( - 2023-2 5 season) 2024 Influenza Vaccine (#1) 2024 HIB Vaccines Aged Out No longer eligi ble based on patient's age to complete this topic Hepatitis A Vaccines Aged Out No long er eligible based on patient's age to complete this topic IPV Vaccines Aged Out No longer eligi ble based on patient's age to complete this topic MMR Vaccines Aged Out No longer eligi ble based on patient's age to complete this topic Meningococcal ACWY Vaccine Aged Out N o longer eligible based on patient's age to complete this topic Meningococcal B Vacine Aged Out No lo nger eligible based on patient's age to complete this topic Pneumococcal Vaccine: Pediat rics (0 to 5 Years) and At-Risk Patients (6 to 64 Years) Aged Out No longer eligible b ased on patient's age to complete this topic RSV Immunization Patients Un indra 20 months Aged Out No longer eligible b ased on patient's age to complete this topic Varicella Vaccines Aged Out No longer eligible based on patient's age to complete this topic
--- OUTSIDE RECORDS SUMMARY | 2025-01-14 09:11 | XMS_ITS | Encounter Summary ---
Author Organization [employer] Address [address] [place] [address] Care Team Providers Care Performance Tester Name Role Phone Aundrea Starks KENNEY Primary Care Provider [phone] Encounter Details Date Type Department Care Team ([facility] st Contact Info) Description 01/13/2025 1:15 PM EST Office Visit [facility] [address] [place] [address] Flavia Cancino CNM [address] [place] [address] Endometrial hyperplasia without atypia (Primary Dx); Dysplasia of cervix, low grade (AWA 1) Social History Tobacco Use Types Packs/Day Years Used Date Smoking Tobacco: Never Passive Smoke Exposure: Never Smokeless Tobacco: Never Alcohol Use Standard Drinks/Week Comments Yes 0 (1 standard drink = 0.6 oz pur e alcohol) oca Alcohol Answer Date Recorded Frequency of Alcohol Consumption Not on file 09/03/2024 Average Number of Drinks Not on file 024 Frequency of Binge Drinking Not on file 08/14 Score 0 09/03/2024 Depression Answer Date Recorded Patient Health Questionnaire-9 Score 8 09/03/2024 Patient Health Questionnaire-9 Score 8 09/03/2024 Last PHQ-9: Questionnaire Data Not on file 1 Housing Stability Answer Date Recorded What is your housing situation today? I have mitesh doyle 10/23/[address] you li ve. Do you have problems with any of the following? None of the above 10/23/2023 Food Insecurity Answer Date Recorded Within the past 12 months, y ou worried that your food would run out before you got money to buy more: Never True 10/23/2023 Within the past 12 months,th e food you bought just didn't last and you didn't have enough money to get more: Never True 09/2023 Transportation Answer Date Recorded In the past 12 months, has l ack of transportation kept you from medical appts, meetings, work or from getting things needed for daily living? No 10/23/2023 Utilities Answer Date Recorded In the past 12 months, has t he [email or web address], gas, oil or water company threatened to shut off services in your home? No 10/23/2023 Depression Answer Date Recorded Patient Health Questionnaire-2 Score 2 09/03/2024 Internet Access Answer Date Recorded Internet Access Q1 Yes 12/19/2024 Internet Access Q2 Not on file 12/19/2024 Comments No Sex and Gender Information Value Date Recorded Sex Assigned at Female 09/12/2022 10:35 AM EDT Legal Sex Female 10:35 AM EDT Gender Identity Female 09/12/2022 10:35 AM EDT Sexual Orientation Straight 09/12/2022 10 :35 AM EDT documented as of this encounter Last Filed Vital Signs Vital Sign Reading Time Taken Comments Blood Pressure 139/75 01/13/2025 1:11 PM EST Pulse 89 01/13/2025 1:11 PM EST Temperature 36.6 ??C (97.8 ??F) 01/13/2025 1:11 PM ES T Respiratory Rate 20 01/13/2025 1:11 PM EST Oxygen Saturation 98% 01/13/2025 1:11 PM EST Inhaled Oxygen Concentration - - Weight 166 kg (365 lb) 01/13/2025 1:11 PM EST Height 160 cm (5' 3 ) 01/13/2025 1:11 PM EST Body Mass Index 64.66 01/13/2025 1:11 PM EST documented in this encounter Progress Notes * Flavia Cancino CNM - 01/13/2025 1:15 PM EST Subjective Patient ID: Sachi Miller is a 24 y.o. female who presents for [employer] visit Here with mother. LSIL r/o HSIL pap 08/2024, referred for colposcopy. Has appt at [facility] 01/14 at 8:45. She actually had colpo in [facility] 09/2024, which showed CIN1. Also had pelvic ultrasound and Endometrial biopsy which showed simple endometrial hyperplasia without atypia. She was treated with IM then oral Provera. Finished Provera last month and had menses after that. Planning to go backto [facility] soon. Taking , would like to get soon. TSH, Prl, testosterone, FSH, LH normal in 2021. Hgb A1C 5.6, LDL 102, HDL 32,other moses normal lipids, neg HIV, syphilis and Hep C 08/2024. Pelvic ultrasound normal in 2021. Recent intentional weight loss. Review of Systems Objective BP 139/75 (BP Location: Left arm, Patient Position: Sitting, BP Cuff Size: Large adult) Pulse 89 Temp 97.8 ??F (36.6 ??C) (Temporal) Resp 20 Ht 5' 3 (1.6 m) Wt 365 lb (166 kg) LMP 01/06/2025 SpO2 98% BMI 64.66 kg/m?? Physical Exam Constitutional: Appearance: Normal appearance. Neurological: Mental Status: She is alert. Psychiatric: Mood and Affect: Mood normal. Behavior: Behavior normal. Assessment/Plan Diagnoses and all orders for this visit: Endometrial hyperplasia without atypia Advised to keep appt with Dr. Aguilar tomorrow, colpo not needed but may need repeat Endometrial biopsy to determine plan for endometrial hyperplasia. She will bring records to appointment. Congratulations with weight loss. Keep up with healthy changes. Report AUB or missed menses. Continue . Dysplasia of cervix, low grade (AWA 1) [facility] 09/2025. documented in this encounter Plan of Treatment Upcoming Encounters Date Type Department Care Team (Late st Contact Info) Description 02/11/2025 11:00 AM EDT Office Visit [facility] [address] [place], [place] [id number] Aundrea Starks ANP [address] [place] [address] documented as of this encounter Procedures Procedure Name Priority Date/Time Associated Diagnosis Comments COLPOSCOPY Routine 10/03/2024 12:00 AM EST documented in this encounter Results * Colposcopy (10/03/2024 12:00 AM EST) us Historical Provider MD IN CLINIC/BEDSIDE ORDERAB LES Final Result EXTERNAL LAB documented in this encounter Visit Diagnoses Diagnosis Endometrial hyperplasia without atypia- Primary Dysplasia of cervix, low grade (AWA 1) documented in this encounter Additional Health Concerns Assessment Noted Time PHQ-9 Depression Total Score: 8 09/03/20 24 12:43 PM EDT documented as of this encounter Care Teams Performance Tester Relationship Specialty Start Date End Date Aundrea Starks ANP [address] [place] [id number] PCP - General Family Medicine 07/06/21 documented as of this encounter
--- OUTSIDE RECORDS SUMMARY | 2025-01-14 09:11 | XMS_ITS | Encounter Summary ---
Author Organization [employer] Address [address] [place] [address] Care Team Providers Care Senior Database Programmer Name Role Phone Aundrea Starks KENNEY Primary Care Provider [phone] Reason for Visit * Reason Comments Med Refill Encounter Details Date Type Department Care Team ([facility] Contact Info) Description 09/27/2024 Refill [facility] [address] [place] [address] Flavia Cancino CNM [address] [place] [address] Social History Tobacco Use Types Packs/Day Years [...] the past 12 months, has t he electric, gas, oil or water company threatened to shut off services in your home? No 10/23/2023 Depression Answer Date Recorded Patient Health Questionnaire-2 Score 2 09/03/2024 Comments Unknown Sex and Gender Information Value Date Recorded Sex Assigned at Female 09/12/2022 10:35 AM EDT Legal Sex Female 10:35 AM EDT Gender Identity Female 09/12/2022 10:35 AM EDT Sexual Orientation Straight 09/12/2022 10 :35 AM EDT documented as of this encounter Plan of Treatment Upcoming Encounters Date Type Department Care Team (Late st Contact Info) Description 02/11/2025 11:00 AM EDT Office Visit [facility] [address] [place] [address] Aundrea Starks ANP [address] [place] [address] documented as of this encounter Visit Diagnoses Not on filedocumented in this encounter Additional Health Concerns Assessment Noted Time PHQ-9 Depression Total Score: 8 09/03/20 24 12:43 PM EDT documented as of this encounter Care Teams Senior Database Programmer Relationship Specialty Start Date End Date Aundrea Starks ANP [address] [place] [id number] PCP - General Family Medicine 07/06/21 documented as of this encounter
--- OUTSIDE RECORDS SUMMARY | 2025-01-14 09:11 | XMS_ITS | Encounter Summary ---
Author Organization [facility] Address [address] [place] [address] [address] [place] [address] Care Team Providers Care Packaging Design Engineer Name Role Phone Aundrea Starks Primary Care Provider [phone] Encounter Details Date Type Department Care Team (Latest Contact Info) Description 03/16/2022 Abstract [facility] CONVERSIONS Dental, Provider, DDS Social History Tobacco Use Types Packs/Day Years [...] Description 02/11/2025 11:00 AM EDT Office Visit [facility] [address] [place] [address] Aundrea Starks ANP [address] [place] [address] documented as of this encounter Visit Diagnoses Not on filedocumented in this encounter Care Teams Packaging Design Engineer Relationship Specialty Start Date End Date Aundrea Starks ANP [address] [place] [address] PCP - General Family Medicine 07/06/21 documented as of this encounter
--- OUTSIDE RECORDS SUMMARY | 2025-01-14 09:11 | XMS_ITS | Encounter Summary ---
Author Organization [employer] Address [address] [place] [address] Care Team Providers Care Ski Technician Name Role Phone Aundrea Starks Primary Care Provider [phone] Reason for Visit * Reason Comments Pre-visit Planning SDOH Screening negat wendy and Tobacco screening negative Encounter Details Date Type Department Care Team ([facility] st Contact Info) Description 12/19/2024 Patient Outreach [facility] [address] [place] [address] Aundrea Starks ANP [address] [place] [address] Pre-visit Planning (SDOH Screening negative and Tobacco screening negative) Social History Tobacco Use Types Packs/Day Years [...] Access Q2 Not on file 12/19/2024 Comments Unknown Sex and Gender Information Value Date Recorded Sex Assigned at Female 09/12/2022 10:35 AM EDT Legal Sex Female 10:35 AM EDT Gender Identity Female 09/12/2022 10:35 AM EDT Sexual Orientation Straight 09/12/2022 10 :35 AM EDT documented as of this encounter Progress Notes * Gisselle Cummins - 12/19/2024 9:10 AM EST KAREN Fonseca placed successful outbound call to patient for pre-visit planning. Patient name and confirmed. Patient confirms appt date and time, and has transportation arrangements. Biggest concern for appointment at this time is will discuss it when she sees provider. Patient advised to bring to appointment a photo id and insurance card. Appropriate screenings completed in anticipation of appointment. documented in this encounter Plan of Treatment Upcoming Encounters Date Type Department Care Team (Late st Contact Info) Description 02/11/2025 11:00 AM EDT Office Visit [facility] [address] [place] [address] Aundrea Starks ANP [address] [place] [address] documented as of this encounter Visit Diagnoses Not on filedocumented in this encounter Additional Health Concerns Assessment Noted Time PHQ-9 Depression Total Score: 8 09/03/20 24 12:43 PM EDT documented as of this encounter Care Teams Ski Technician Relationship Specialty Start Date End Date Aundrea Starks ANP [address] [place] [address] PCP - General Family Medicine 07/06/21 documented as of this encounter
--- OUTSIDE RECORDS SUMMARY | 2025-01-14 09:11 | XMS_ITS | Encounter Summary ---
Author Organization [employer] Address [address] [facility] 7t h Floor [address] Care Team Providers Care Spout Tender Name Role Phone Aundrea Starks Primary Care Provider [phone] Reason for Visit * Reason Onset Date Comments Appointment Request 01/06/2025 Encounter Details Date Type Department Care Team ([facility] Contact Info) Description 01/06/2025 Telephone [facility] [address] [place], [place] [phone] Aundrea Starks ANP [address] [place] [address] Appointment Request Social History Tobacco Use Types Packs/Day Years [...] AM EDT documented as of this encounter Miscellaneous Notes * Telephone Encounter - Marline Fuentes RN - 01/06/2025 10:31 AM EST TC placed to pt in regards to request to r/s appt with Flavia Julita. The pt was originally scheduled for January 16 but the pt would like to be seen sooner to discuss recent biopsy results with Flavia. Pt GUILLERMO with Flavia Julita was back in August of 2024. Pt was put on Provera due to irregular menses. Pt stated that she [place] Pt has had some active bleeding but it is not heavy and denies any abdominal pain or discomfort. Pt agreeable to r/s with Flavia Julita on 01/13/2025 at 115. * Telephone Encounter - Jeison Mares - 01/06/2025 8:59 AM EST TC from pt requesting to get a Apt with Julita. Pt states that the Bleeding and Pain that she was Having before came back she said that it hasn't gotten worse and that its about the same as the first time. Federal Appellate Clerk advised pt of the Upcoming Apt on 01/16/25 and she was wondering if there was anything earlier. Contact pt at [phone] documented in this encounter Plan of Treatment Upcoming Encounters Date Type Department Care Team (Late st Contact Info) Description 02/11/2025 11:00 AM EDT Office Visit [facility] [address] [place] [phone] Aundrea Starks ANP [address] [place] [address] documented as of this encounter Visit Diagnoses Not on filedocumented in this encounter Additional Health Concerns Assessment Noted Time PHQ-9 Depression Total Score: 8 09/03/20 24 12:43 PM EDT documented as of this encounter Care Teams Spout Tender Relationship Specialty Start Date End Date Aundrea Starks ANP [address] [place] [phone] PCP - General Family Medicine 07/06/21 documented as of this encounter
--- OUTSIDE RECORDS SUMMARY | 2025-01-14 09:11 | XMS_ITS | Encounter Summary ---
Author Organization [employer] Address [address] [facility] [address] 7t [place] [address] Care Team Providers Care Fabric Worker Leader Name Role Phone Aundrea Starks Primary Care Provider [phone] Encounter Details Date Type Department Care Team ([facility] st Contact Info) Description 11/18/2024 Telephone [facility] [address] [place] [address] Aundrea Starks ANP [address] [place] [address] Social History Tobacco Use Types Packs/Day Years [...] Description 02/11/2025 11:00 AM EDT Office Visit [facility] [address] [place] [address] Aundrea Starks ANP [address] [place] [address] documented as of this encounter Visit Diagnoses Not on filedocumented in this encounter Additional Health Concerns Assessment Noted Time PHQ-9 Depression Total Score: 8 09/03/20 24 12:43 PM EDT documented as of this encounter Care Teams Fabric Worker Leader Relationship Specialty Start Date End Date Aundrea Starks ANP [address] [place] [phone] PCP - General Family Medicine 07/06/21 documented as of this encounter
--- OUTSIDE RECORDS SUMMARY | 2025-01-14 09:12 | XMS_ITS | Clinical Summary ---
Author Organization [employer] Address [address] [facility] 7t [place] [address] Care Team Providers Care Bath Steward Name Role Phone Aundrea Starks KENNEY Primary Care Provider [phone] Allergies Active Allergy Reactions Criticality Noted Date Comments Penicillins Hives 02/14/2020 Other reaction(s): Skin irritation Medications * This document contains information received from the source organization and may not represent a complete record from that organization. omeprazole (PriLOSEC) [address] capsule Take 1 capsule by mouth at bed time. 2 Active hydrOXYzine HCl (Atarax) 10 MG tablet TAKE 1 - 2 TABLET BY ORAL ROUTE EVERY 6 HOURS NEEDED FOR ANXIETY 30 tablet 6 3 Active acetaminophen (Tylenol) 500 MG tablet Take 2 tablets (1,000 mg) by mouth every 6 (six) hours if needed for moderate pain or fever for up to 25 doses. 50 tablet 4 Active ibuprofen 400 MG tablet Take 1 tablet (400 mg) by mouth every 6 (six) hours if needed for moderate pain or fever for up to 30 doses. 30 tablet 4 Active folic acid (Folvite) 800 MCG tablet Take 1 tablet (0.8 mg) by mouth Once per day. 30 tablet 11 4 09/02/20 25 Active medroxyPROGESTER one (Provera) 5 MG tablet Take 1 tablet (5 mg) by mouth Once per day for 7 days. Report if no menses by 7th day after last pill 7 tablet 4 Active amLODIPine (Norvasc) 2.5 MG tabletIndication s:Essential hypertension Take 1 tablet (2.5 mg) by mouth Once daily. 90 tablet 1 4 Active Blood Pressure kitIndications:E ssential hypertension 1 each 2 times daily. 1 kit 4 09/03/20 25 Active FLUoxetine (PROzac) 10 MG capsule Take 1 capsule (10 mg) by mouth Once per day. 90 capsule 1 5 01/14/20 26 Active FLUoxetine (PROzac) 10 MG tabletIndication s:Anxiety TAKE 1 TABLET BY MOUTH EVERY DAY 90 tablet 1 4 01/14/20 25 Discontinu ed(Alterna te therapy) Active Problems Problem Noted Date Diagnosed Date Endometrial hyperplasia without atypia 5 Acute malignant otitis externa of left ear 08/27 Assessment & Plan (08/27/2024 1:47 PM EDT): - no evidence of DM - complete antibiotics x 10 days + otic solution BID, take Toradol 1-2x per day max + Tylenol PRN fever, chills, and mild pain - repeat blood work to monitor inflammatory response and f/u with PCP - f/u with PCP next week Irritable bowel syndrome 05/26/2023 Menorrhagia with irregular cycle 05/26/2023 Gastroesophageal reflux dise ase with esophagitis without hemorrhage 05/26/2023 Essential hypertension 05/26/2023 Overview (09/03/2024): Amlodipine 2.5mg Previously trialed nifedipine but got hot flashes Trying for Assessment & Plan (08/27/2024 1:48 PM EDT): - uncontrolled today, most likely related to acute illness - continue same medications and f/u with PCP next week Anxiety 10/11/2022 Oligomenorrhea 10/11/2022 Overweight 10/11/2022 Tingling of both upper extremities 10/11/2022 Vitamin deficiency 10/11/2022 Encounters Date Type Department Care Team Description 01/13/2025 1:15 PM EST Office Visit [facility] [address] [place] [phone] Flavia Cancino CNM Endometrial hyperplasia without atypia (Primary Dx); Dysplasia of cervix, low grade (AWA 1) 01/13/[address] [address] Aundrea Starks ANP Medication Question 01/13/2025 Travel 01/06/[address] [address] Aundrea Starks ANP Appointment Request 12/19/2024 Patient Outreach [address] [address] Aundrea Starks ANP Pre-visit Planning (SDOH Screening negative and Tobacco screening negative) 11/18/[address] [address] Aundrea Starks ANP 11/04/[address] [address] Shazia Leach [place] December recall from Last 3 Months Immunizations Name Administration Dates Next Due DTaP 05/06/2004, 1,1999,09/02,1999 HPV, Quadrivalent 09/03/2014,02/29/2012,12/19/19 12 Hep B, Adolescent or Pediatric 05/08/2000,1998,1999 IPV 05/06/2004, 1,1999,06/30 Influenza Whole 10/16/2006 Influenza injectable quadriv alent preservative free 10/23/2023,09/02/2021,07/23/2020,08/23,08/23/2018 Influenza, IIV3, injectable 10/14/2022,,08/22/2017 Influenza, live, intranasal 09/03/2014 Influenza, seasonal, injecta ble, preservative free 09/03/2024 MMR 05/06/2004,11/18/2000 Meningococcal MPSV4 12/19/2011 Moderna Covid-19 Vaccine 12+ 02/05/2021,01/08/20 21 Pneumococcal Conjugate PCV 7 11/18/2000 Tdap 09/02/2021,12/19/2011 Varicella 02/29/2012,05/08/2000 Social History Tobacco Use Types Packs/Day Years Used Date Smoking Tobacco: Never Passive Smoke Exposure: Never Smokeless Tobacco: Never Tobacco Cessation:Counseling Given: Not Answered Alcohol Use Standard Drinks/Week Comments Yes 0 [...] Orientation Straight 09/12/2022 10 :35 AM EDT Last Filed Vital Signs Vital Sign Reading [...] Mass Index 64.66 01/13/2025 1:11 PM EST Plan of Treatment Upcoming Encounters Date Type Department Care Team (Late st Contact Info) Description 02/11/2025 11:00 AM EDT Office Visit [facility] [address] [place], [place] [phone] Aundrea Starks ANP [address] [place], [place] [phone] Health Maintenance Due Date Last Done Comments COVID-19 Vaccine ( season) 2024 02/05/2021, 01/08/2021 Alcohol/Substance Use Screening 09/03/2025 09/03/2024 Depression Screening 09/03/2025 09/03/2024, 09/03/20 24 HPV/Cotest 10/03/2025 Pap Smear 10/03/2025 09/02/2024 SDOH Screening 12/19/2025 12/19/2024 Family Planning (PISQ) 01/13/2026 01/13/2025 Tobacco Screening 01/13/2026 01/13/2025 Lipid Panel 08/28/2029 08/28/2024, 04/2 , 07/13/2020 DTaP/Tdap/Td Vaccines (8 - Td or Tdap) 09/02/2031 09/02/2021, 12/19/2011, 05/06/2004, Additional history exists Zoster Vaccines (1 of 2) 2049 RSV Patients and Patients Aged 60 years or older (1 - 1-dose 75+ series) 2074 Hepatitis B Vaccines Completed 05/08/2000, 1999, 1999 Pneumococcal Vaccine: Pediatrics (0 to 5 Years) and At-Risk Patients (6 to 49) Years) Aged Out 11/18/2000 No longer eligible based on patient's age to complete this topic IPV Vaccines Completed 05/06/2004, 04/2001, 1999, Additional history exists Meningococcal Vaccine Aged Out 12/19/2011 No bhupendra sienna eligible based on patient's age to complete this topic HPV Vaccines Completed 09/03/2014, 02/11, 12/19/2011 HIV Screening Completed 08/28/2024, 07/13/2020 Hepatitis C Screening Completed 08/28/2024, 020 Influenza Vaccine Completed 09/03/2024, , 10/14/2022, Additional history exists Colposcopy Discontinued 10/03/2024 HIB Vaccines Aged Out No longer eligi ble based on patient's age to complete this topic Hepatitis A Vaccines Aged Out No long er eligible based on patient's age to complete this topic RSV under 20 months Aged Out No longe r eligible based on patient's age to complete this topic Rotavirus Vaccines Aged Out No longer eligible based on patient's age to complete this topic Procedures Procedure Name Priority Date/Time Associated Diagnosis Comments COLPOSCOPY Routine 10/03/2024 12:00 AM EST THINPREP IMAGING SYSTEM PAP Routine 09/02/2024 2:35 PM EDT Cervical cancer screening HEPATITIS C AB W/REFL TO HCV RNA, QN, PCR Routine 08/28/2024 12:10 PM EDT Healthcare maintenance HIV 1/2 ANTIGEN/ANTIBODY, FOURTH GENERATION W/RFL Routine 08/28/2024 12:10 PM EDT Healthcare maintenance LIPID PANEL, STANDARD Routine 08/28/2024 12:10 PM EDT Lipid screening Class 3 severe obesity with serious comorbidity and body mass index (BMI) of 60.0 to 69.9 in adult, unspecified obesity type (CMS/HCC) from Last 3 Months or Most Recently Relevant to Health Maintenance Results * Colposcopy (10/03/2024 12:00 AM EST) us Historical Provider MD IN CLINIC/BEDSIDE ORDERAB LES Final Result EXTERNAL LAB * (ABNORMAL) Pap Smear (09/02/2024 2:35 PM EDT) SOURCE: SEE [facility] Comment:Cervix Report Status: [facility] Clinical Information: SEE NOTE [facility] Comment:None given LMP: SEE NOTE [facility] Comment:NONE GIVEN Prev. PAP: SEE NOTE [facility] Comment:NONE GIVEN Prev. BX: SEE NOTE [facility] Comment:NONE GIVEN Statement Of Adequacy: SEE NOTE [facility] Comment:Satisfactory for dinora luation.Endocervical/transformation zone componentpresent. General Categorization: SEE NOTE(A) [facility] Comment:Cytology Results: Ep ithelial Cell Abnormality Interpretation/Resul t: SEE NOTE(A) [facility] Comment:Low Grade Squamous I ntraepithelial Lesion, (LSIL),a more advanced lesion may be present Cytology Comment SEE NOTE [facility] Comment:This Pap test has be en evaluated with computerassisted technology. Delicatessen Store Manager: SEE NOTE [facility] Comment:MRS, CT(ASCP)CT scre ening location: [address] [address]Piekj preparation performed at: [facility], [address] [place] [address] CLIA No. [id number] Review Delicatessen Store Manager: [facility] Pathologist SEE NOTE [facility] Comment:Sharif López M.D., Ph .D.,Board Certified in Anatomic and Clinical Pathologyand Cytopathology(electronic signature)Consulting [address] [phone] PAP Infection [facility] See Note SEE [facility] Comment:EXPLANATORY NOTE:The Pap is a screening test for cervical cancer. It isnot a diagnostic test and is subject to false negativeand false positive results. It is most reliable when asatisfactory sample, regularly obtained, is submittedwith relevant clinical findings and history, and whenthe Pap result is evaluated along with historic andcurrent clinical information.THIS TEST WAS PERFORMED AT:[facility] ANATOM[facility] PATH[facility] [place] [address]EVFFQALIS COHEN MD Pap Vial Vaginal structure / Unknown 09/02/2024 2:35 PM EDT 09/02/2024 5:28 PM EDT Narrative [facility] - 09/09/2024 3:16 PM EDT SEE SCANNED RESULTS IN EMR us Flavia Cancino [facility] PATHOLOGY ORDERABLES Final Result Performing Organization Address City/[facility]/ZIP Co de Phone Number [facility] [address] [place] [phone] * Hepatitis C Antibody with Reflex to HCV, RNA, Quantitative, Real-Time PCR (08/28/2024 12:10 PM EDT) Hepatitis C Antibody Nonreactive Nonreactive [facility] Comment:Antibodies to HCV no t detected; does not exclude early acuteHCV infection. Blood Venous blood specimen / Unknown 08/28/2024 12:10 PM EDT 08/28/2024 1:16 PM EDT us Aundrea MOULTON LAB BLOOD ORDERABLES Final Resul t Performing Organization Address City/[facility]/ZIP Co de Phone Number [facility] [address] [place] [phone] * HIV-1/2 Antigen and Antibodies, Fourth Generation, with Reflexes (08/28/2024 12:10 PM EDT) HIV AB/AG Nonreactive Nonreactive [facility] Comment:HIV-1 p24 Ag and/or HIV-1/HIV-2 Ab not detected.A test result that is nonreactive does not exclude thepossibility of exposure to or infection with HIV-1 and/orHIV-2. Nonreactive results in this assay for individualswith prior exposure to HIV-1 and/or HIV-2 may be due toantigen and antibody levels that are below the limit ofdetection of this assay.The [employer] HIV Ag/Ab Combo assay result andsupplemental assay results should be interpreted inconjunction with the patient's clinical presentation,history and other laboratory results. If the results areinconsistent with clinical evidence, additional testing issuggested to confirm the result. Blood Venous blood specimen / Unknown 08/28/2024 12:10 PM EDT 08/28/2024 1:16 PM EDT Aundrea Starks [facility] BLOOD ORDERABLES Final Resul t [facility] [address] [place] [phone] * (ABNORMAL) Lipid Panel, Standard (08/28/2024 12:10 PM EDT) Triglycerides 87 <150 mg/dL [facility] Comment:Desirable Triglyceri de: less than 150 mg/dLBorderline High Triglyceride 150-199 mg/dLHigh Triglyceride: 200-499 mg/dLVery High Triglyceride: greater than or equal to 5OO mg/dL Cholesterol 151 <200 mg/dL [facility] Comment:Desirable Cholestero l: less than 200 mg/dLBorderline High Cholesterol: 200-239 mg/dLHigh Cholesterol: greater than 239 mg/dL LDL Cholesterol Calculated 102(H) <100 mg/dL [facility] Comment:Desirable LDL: less than 100 mg/dLNear Optimal/Above Optimal LDL: 110- 129 mg/dLBorderline High LDL: 130-159 mg/dLHigh LDL: 160-189 mg/dLVery High LDL: greater than or equal to 190 mg/dL HDL Cholesterol 32(L) >40 mg/dL [facility] Comment:Desirable HDL: great er than 40 mg/dL Note: This HDL assay may give artificially low results in patients with liver disease. Blood Venous blood specimen / Unknown 08/28/2024 12:10 PM EDT 08/28/2024 1:16 PM EDT us Aundrea [facility] BLOOD ORDERABLES Final Resul t [facility] [address] [place] [phone] from Last 3 Months or Most Recently Relevant to Health Maintenance Insurance [facility] Care Teams Bath Steward Relationship Specialty Start Date End Date Aundrea Starks ANP [address] [place] [address] PCP - General Family Medicine 07/06/21
--- OUTSIDE RECORDS SUMMARY | 2025-01-14 09:12 | XMS_ITS | Encounter Summary ---
Author Organization [employer] Address [address] [facility] [address] 7t [place] [address] Care Team Providers Care Wastewater Supervisor Name Role Phone Aundrea Starks Primary Care Provider [phone] Encounter Details Date Type Department Care Team (Latest Contact Info) Description 01/13/2025 Travel Social History Tobacco Use Types Packs/Day Years [...] Description 02/11/2025 11:00 AM EDT Office Visit [facility] [address] [place] [address] Aundrea Starks ANP [address] [place] [address] documented as of this encounter Visit Diagnoses Not on filedocumented in this encounter Additional Health Concerns Assessment Noted Time PHQ-9 Depression Total Score: 8 09/03/20 24 12:43 PM EDT documented as of this encounter Care Teams Wastewater Supervisor Relationship Specialty Start Date End Date Aundrea Starks ANP [address] [place] [phone] PCP - General Family Medicine 07/06/21 documented as of this encounter
--- OUTSIDE RECORDS SUMMARY | 2025-01-14 09:12 | XMS_ITS | Encounter Summary ---
Author Organization [employer] Address [address] [facility] 7t [place] [address] Care Team Providers Care Armed Custom Protection Officer Name Role Phone Aundrea Starks Primary Care Provider [phone] Reason for Visit * Reason Comments Med Refill Encounter Details Date Type Department Care Team ([facility] Contact Info) Description 08/25/2023 Refill [facility] [address] [place], [place] [phone] Aundrea Starks ANP [address] [place] [address] Anxiety Social History Tobacco Use Types Packs/Day Years Used Date Smoking Tobacco: Never Passive Smoke Exposure: Never Smokeless Tobacco: Never Alcohol Use Standard Drinks/Week Comments Not Currently 0 (1 standard drink = 0.6 oz pur e alcohol) PHQ-2 Answer Date Recorded Patient Health Questionnaire-2 Score 0 10/14/2022 Housing Stability Answer Date Recorded What is your housing situation today? I have mitesh doyle 08/21/[address] you li ve. Do you have problems with any of the following? None of the above 08/21/2023 Food Insecurity Answer Date Recorded Within the past 12 months, y ou worried that your food would run out before you got money to buy more: Never True 08/21/2023 Within the past 12 months,th e food you bought just didn't last and you didn't have enough money to get more: Never True 07/2023 Transportation Answer Date Recorded In the past 12 months, has l ack of transportation kept you from medical appts, meetings, work or from getting things needed for daily living? No 08/21/2023 Utilities Answer Date Recorded In the past 12 months, has t he electric, gas, oil or water company threatened to shut off services in your home? No 08/21/2023 Depression Answer Date Recorded Patient Health Questionnaire-2 Score 0 10/14/2022 Comments Unknown Sex and Gender Information Value [...] Description 02/11/2025 11:00 AM EDT Office Visit [facility] [address] [place] [phone] Aundrea Starks ANP [address] [place] [address] documented as of this encounter Visit Diagnoses Diagnosis Anxiety Anxiety state, unspecified documented in this encounter Care Teams Armed Custom Protection Officer Relationship Specialty Start Date End Date Aundrea Starks ANP [address] [place] [phone] PCP - General Family Medicine 07/06/21 documented as of this encounter
--- OUTSIDE RECORDS SUMMARY | 2025-01-14 09:12 | XMS_ITS | Encounter Summary ---
Author Organization [employer] Address [address] [facility] 7t [place] [address] Care Team Providers Care Uniform Attendant Name Role Phone Elzbieta Bell Primary Care Provider [phone] Reason for Visit * Reason Onset Date Comments Medication Question 01/13/2025 Encounter Details Date Type Department Care Team ([facility] Contact Info) Description 01/13/2025 Telephone [facility] [address] [place], [place] [phone] Elzbieta Bell ANP [address] [place] [address] Medication Question Social History Tobacco Use Types Packs/Day Years [...] as of this encounter Miscellaneous Notes * Addendum Note - KENNEY Wyman - 01/13/2025 1:25 PM ESTAddended by: ELZBIETA BELL on: 01/13/2025 01:25 PM Modules accepted: Orders * Telephone Encounter - Deborah Bell RN - 01/13/2025 1:15 PM EST Pt walked into [employer] [facility] front desk clerk stating the her Prozac prescription needs a prior authorization. Called [facility] pharmacy, pt was due for refill (on file) for mid November. Pharmacy states medication as written does need a prior authorization, no detail given to pharmacy, however per [facility] stadd if dummy script run with daily capsules (not tablets), the copay is about $2 and no PA required. Will send message to PCP to advise. documented in this encounter Plan of Treatment Upcoming Encounters Date Type Department Care Team (Late st Contact Info) Description 02/11/2025 11:00 AM EDT Office Visit [facility] [address] [place] [address] Elzbieta Bell ANP [address] [place] [address] documented as of this encounter Visit Diagnoses Diagnosis Anxiety Anxiety state, unspecified documented in this encounter Additional Health Concerns Assessment Noted Time PHQ-9 Depression Total Score: 8 09/03/20 24 12:43 PM EDT documented as of this encounter Care Teams Uniform Attendant Relationship Specialty Start Date End Date Elzbieta Bell ANP [address] [place] [address] PCP - General Family Medicine 07/06/21 documented as of this encounter
--- OUTSIDE RECORDS SUMMARY | 2025-01-14 09:12 | XMS_ITS | Patient Health Record ---
Author Organization [facility] Address [address] [place] [address] Care Team Providers Care Infrastructure Developer Name Role Phone ELZBIETA BELL N.P. Primary Care Provider Raymond Levy Jr Unavailable [phone] ALLERGIES Allergen (clinical drug ingredient) Drug/Non Drug Allergy documented on EMR Reaction Allergy Type Onset Date Status Penicillin Unknown Drug Allergy Active dairy (uncoded) Unknown Allergy Acti ve REASON FOR REFERRAL No Information MEDICATIONS Medication SIG (Take, Route, Frequency, Duration) Notes Start Date End Date Status Propranolol HCl 10 MG TAKE 1 TABLET BY M OUTH TWICE A DAY Oral for 30 Active Vitamin D3 50 MCG (1999 UT) TAKE 1 TABLE T BY MOUTH EVERY DAY Oral for 90 Active Omeprazole 20 MG TAKE 1 CAPSULE BY MO UTH EVERY DAY BEFORE A MEAL Oral for 30 Active IMMUNIZATIONS Vaccine Route Administration Date Status Comme nts Influenza Unknown 07/14/2021 Administered SOCIAL HISTORY Tobacco Use: Social History Observation Description Date Details (start date - stop date) Never Smoker NA - NA Sex Assigned At : Social History Observation Description Sex Assigned At Unknown Tobacco Use/Smoking Question Answer Notes Patient is a nonsmoker Alcohol Screen Question Answer Notes Did you have a drink contain ing alcohol in the past year? Yes How often did you have a dri nk containing alcohol in the past year? Never (0 point) How many drinks did you have on a typical day when you were drinking in the past year? 1 or 2 drinks (0 point) How often did you have 6 or more drinks on one occasion in the past year? Never (0 point) Points 0 Interpretation Negative PROBLEMS Problem Type ICD Code Onset Dates Problem Status W/U Status Risk SNOMED Code Notes Problem Irritable bowel syndrome with both constipation and diarrhea (K58.2) Active confirmed 60239622 Problem Gastroesophageal reflux disease with esophagitis without hemorrhage (K21.00) Active confirmed 600474875 PLAN OF TREATMENT No Information Insurance Providers Payer Name Payer Address Payer Phone Subscriber Number Group Number Insured Name Patient Relationship to Insured Coverage Start Date Coverage End Date [place] [facility] [address] [place] [address] [id number] IZABELA PERALTA Self - patient is the insured MEDICAL (GENERAL) HISTORY Medical History History ICD Code Denies OK,DM,CVA,Lung disease,renal dise ase hypertension Surgical History Surgery Date(Month/Year)
== END 2025-01-14 09:40 | disposition home or self-care (01) ==
LOC: HO.HWS 08:37
PROVIDERS: PCP Nurse Practitioner Primary Care; Visit Provider Obstetrics & Gynecology
DX: R87.612 Low grade squamous intraepithelial lesion on cytologic smear of cervix (LGSIL) (principal); N85.01 Benign endometrial hyperplasia; N93.9 Abnormal uterine and vaginal bleeding, unspecified
CPT/HCPCS: 57454; 58110; 99203

== ENCOUNTER 2025-01-14 08:37 | Outpatient (REF) | payer OTHER, SELFPAY ==
[2025-01-14 11:01] LABS: Mean Corpuscular Hemoglobin 22.1 pg (27.0-33.0); Mean Corpuscular Volume 73.7 fL (80.0-98.0); Mean Platelet Volume 9.7 fL (9.4-12.3); Platelet Count 418 X10*3/uL (160-400); Red Blood Count 5.43 X10*6/uL (4.20-5.50); Red Cell Distribution Width 17.9 % (11.0-16.0); White Blood Count 10.9 X10*3/uL (4.8-10.8)
--- OUTSIDE RECORDS SUMMARY | 2025-01-14 12:26 | XMS_ITS | Encounter Summary ---
Author Organization [employer] Address [address] [facility] 7t [place] [address] Care Team Providers Care Director Process Name Role Phone Aundrea Starks Primary Care Provider [phone] Reason for Visit * Reason Onset Date Comments Appointment Request 01/06/2025 Encounter Details Date Type Department Care Team ([facility] Contact Info) Description 01/06/2025 Telephone [facility] MEDICINE [address] [place], [place] [phone] Aundrea Starks ANP [address] [place] [address] Appointment Request Social History Tobacco Use Types [...] about the same as the first time. Hearing Impaired Itinerant Teacher advised pt of the Upcoming Apt on 01/16/25 and she was wondering if there was anything earlier. Contact pt at [phone] documented in this encounter Plan of Treatment Upcoming Encounters Date Type Department Care Team (Late st Contact Info) Description 02/11/2025 11:00 AM EDT Office Visit [facility] MEDICINE [address] [place] [address] Aundrea Starks ANP [address] [place] [address] documented as of this encounter Visit Diagnoses Not on filedocumented in this encounter Additional Health Concerns Assessment Noted Time PHQ-9 Depression Total Score: 8 09/03/20 24 12:43 PM EDT documented as of this encounter Care Teams Director Process Relationship Specialty Start Date End Date Aundrea Starks ANP [address] [place] [address] PCP - General Family Medicine 07/06/21 documented as of this encounter
--- OUTSIDE RECORDS SUMMARY | 2025-01-14 12:26 | XMS_ITS | Encounter Summary ---
Author Organization [employer] Address [address] [facility] 7t [place] [address] Care Team Providers Care Landscape Maintenance Internship Name Role Phone Aundrea Starks Primary Care Provider [phone] Reason for Visit * Reason Comments Pre-visit Planning SDOH Screening negat wendy and Tobacco screening negative Encounter Details Date Type Department Care Team ([facility] st Contact Info) Description 12/19/2024 Patient Outreach [facility] MEDICINE [address] [place] [address] Aundrea Starks ANP [address] [place] [address] Pre-visit Planning (SDOH Screening negative and Tobacco [...] your housing situation today? I have mitesh dyole 10/23/[address] you li [...] Description 02/11/2025 11:00 AM EDT Office Visit [facility] MEDICINE [address] [place] [address] Aundrea Starks ANP [address] [place] [address] documented as of this encounter Visit Diagnoses Not on filedocumented in this encounter Additional Health Concerns Assessment Noted Time PHQ-9 Depression Total Score: 8 09/03/20 24 12:43 PM EDT documented as of this encounter Care Teams Landscape Maintenance Internship Relationship Specialty Start Date End Date Aundrea Starks ANP [address] [place] [address] PCP - General Family Medicine 07/06/21 documented as of this encounter
--- OUTSIDE RECORDS SUMMARY | 2025-01-14 12:26 | XMS_ITS | Encounter Summary ---
Author Organization [employer] Address [address] [facility] [address] 7[address] [place] [address] Care Team Providers Care Machining Engineer Name Role Phone Aundrea Starks Primary Care Provider [phone] Encounter Details Date Type Department Care Team ([facility] st Contact Info) Description 11/18/2024 Telephone [facility] MEDICINE [address] [place] [address] Aundrea Starks ANP [address] [place] [address] Social History Tobacco Use Types Packs/Day Years [...] Description 02/11/2025 11:00 AM EDT Office Visit [facility] MEDICINE [address] [place] [address] Aundrea Starks ANP [address] [place] [address] documented as of this encounter Visit Diagnoses Not on filedocumented in this encounter Additional Health Concerns Assessment Noted Time PHQ-9 Depression Total Score: 8 09/03/20 24 12:43 PM EDT documented as of this encounter Care Teams Machining Engineer Relationship Specialty Start Date End Date Aundrea Starks ANP [address] [place] [address] PCP - General Family Medicine 07/06/21 documented as of this encounter
--- OUTSIDE RECORDS SUMMARY | 2025-01-14 12:26 | XMS_ITS | Encounter Summary ---
Author Organization [employer] Address [address] [address] [facility] 7t [place] [address] Care Team Providers Care Senior Support Analyst Name Role Phone Aundrea Starks Primary Care Provider [phone] Encounter Details Date Type Department Care Team (Late st Contact Info) Description 01/14/2025 Orders Only GENERIC EXTERNAL DATA DEPARTMENT Provider, Generic External Data Social History Tobacco Use Types Packs/Day Years [...] Description 02/11/2025 11:00 AM EDT Office Visit [facility] MEDICINE 230 [place] [address] Aundrea Starks, ANP [address] [place] [address] documented as of this encounter Procedures Procedure Name Priority Date/Time Associated Diagnosis Comments CBC Routine 01/14/2025 10:36 AM EST documented in this encounter Results * (ABNORMAL) CBC (01/14/2025 10:36 AM EST) White Blood Count 10.9(H) 4.8 - 10.8 X10*3/uL [facility] Red Blood Count 5.43 4.20 - 5.50 X10*6/uL [facility] Hemoglobin 12.0 12.0 - 16.0 g/dl [facility] Hematocrit 40.0 37.0 - 47.0 % [facility] Mean Corpuscular Volume 73.7(L) 80.0 - 98.0 fL [facility] Mean Corpuscular Hemoglobin 22.1(L) 27.0 - 33.0 pg [facility] Mean Corpuscular HGB Conc 30.0(L) 31.0 - 35.0 g/dl [facility] Red Cell Distribution Width 17.9(H) 11.0 - 16.0 % [facility] Platelet Count 418(H) 160 - 400 X10*3/uL [facility] Mean Platelet Volume 9.7 9.4 - 12.3 fL [facility] NRBC Pct Auto 0.0 0.0 - 0.2 /100WBC [facility] NRBC Abs Auto 0.000 0.0 - 0.012 X10*3/uL [facility] 01/14/2025 10:3 6 AM EST 01/14/2025 10:36 AM EST us Generic External Data Provider LAB BLOOD ORDERAB LES Final Result [facility] [address] [place] [phone] documented in this encounter Visit Diagnoses Not on filedocumented in this encounter Additional Health Concerns Assessment Noted Time PHQ-9 Depression Total Score: 8 09/03/20 24 12:43 PM EDT documented as of this encounter Care Teams Senior Support Analyst Relationship Specialty Start Date End Date Aundrea Starks ANP [address] [place] [address] PCP - General Family Medicine 07/06/21 documented as of this encounter
--- OUTSIDE RECORDS SUMMARY | 2025-01-14 12:26 | XMS_ITS | Clinical Summary ---
Author Organization [facility] Address [address] [place] [address] Care Team Providers Care Tattoo Artist Name Role Phone Unavailable Primary Care Provider [...]
--- OUTSIDE RECORDS SUMMARY | 2025-01-14 12:26 | XMS_ITS | Encounter Summary ---
Author Organization [employer] Address [address] [facility] 7t [place] [address] Care Team Providers Care Mental Health Case Manager Name Role Phone Aundrea Starks KENNEY Primary Care Provider [phone] Reason for Visit * Reason Comments Med Refill Encounter Details Date Type Department Care Team ([facility] Contact Info) Description 09/27/2024 Refill [facility] MEDICINE [address] [place] [address] Flavia Cancino CNM [address] [place] [address] Social History Tobacco Use Types Packs/Day Years [...] Description 02/11/2025 11:00 AM EDT Office Visit [facility] MEDICINE [address] [place] [address] Aundrea Starks ANP [address] [place] [address] documented as of this encounter Visit Diagnoses Not on filedocumented in this encounter Additional Health Concerns Assessment Noted Time PHQ-9 Depression Total Score: 8 09/03/20 24 12:43 PM EDT documented as of this encounter Care Teams Mental Health Case Manager Relationship Specialty Start Date End Date Aundrea Starks ANP [address] [place] [address] PCP - General Family Medicine 07/06/21 documented as of this encounter
--- OUTSIDE RECORDS SUMMARY | 2025-01-14 12:27 | XMS_ITS | Clinical Summary ---
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 I have miteshjohnny doyle 10/23/[address] you [...] Description 02/11/2025 11:00 AM EDT Office Visit [facility] MEDICINE 230 [place] [address] Aundrea Starks ANP [address] [place], [place] [phone] Health Maintenance Due Date Last Done Comments [...] Comments CBC Routine 01/14/2025 10:36 AM EST COLPOSCOPY Routine 10/03/2024 12:00 AM EST THINPREP [...] Recently Relevant to Health Maintenance Results * (ABNORMAL) CBC (01/14/2025 10:36 AM EST) White Blood Count 10.9(H) 4.8 - 10.8 X10*3/uL [facility] Red Blood Count 5.43 4.20 - 5.50 X10*6/uL [facility] Hemoglobin 12.0 12.0 - 16.0 g/dl [facility] Hematocrit 40.0 37.0 - 47.0 % [facility] Mean Corpuscular Volume 73.7(L) 80.0 - 98.0 fL [facility] Mean Corpuscular Hemoglobin 22.1(L) 27.0 - 33.0 pg [facility] Mean Corpuscular HGB Conc 30.0(L) 31.0 - 35.0 g/dl [facility] Red Cell Distribution Width 17.9(H) 11.0 - 16.0 % [facility] Platelet Count 418(H) 160 - 400 X10*3/uL [facility] Mean Platelet Volume 9.7 9.4 - 12.3 fL [facility] NRBC Pct Auto 0.0 0.0 - 0.2 /100WBC [facility] NRBC Abs Auto 0.000 0.0 - 0.012 X10*3/uL [facility] 01/14/2025 10:3 6 AM EST 01/14/2025 10:36 AM EST us Generic External Data Provider LAB BLOOD ORDERAB LES Final Result [facility] [address] [place] [phone] * Colposcopy (10/03/2024 12:00 AM EST) us Historical Provider MD IN CLINIC/BEDSIDE ORDERAB LES Final Result EXTERNAL LAB * (ABNORMAL) Pap Smear (09/02/2024 2:35 PM EDT) SOURCE: SEE NOTE [facility] Comment:Cervix Report Status: [facility] Clinical Information: SEE NOTE [facility] Comment:None given LMP: SEE NOTE [facility] Comment:NONE GIVEN Prev. PAP: SEE NOTE [facility] Comment:NONE GIVEN Prev. BX: SEE NOTE [facility] Comment:NONE GIVEN Statement Of Adequacy: SEE NOTE [facility] Comment:Satisfactory for dinora luation.Endocervical/transformation zone componentpresent. General Categorization: SEE NOTE(A) [facility] Comment:Cytology Results: Ep ithelial Cell Abnormality Interpretation/Resul t: SEE NOTE(A) [facility] Comment:Low Grade Squamous I ntraepithelial Lesion, (LSIL),a more advanced lesion may be present Cytology Comment SEE NOTE [facility] Comment:This Pap test has be en evaluated with computerassisted technology. Web Production Assistant: SEE NOTE [facility] Comment:MRS, CT(ASCP)CT scre ening location: [email or web address] [address] [address]Amsoj preparation performed at: [place] [address] CLIA No. [id number] Review Web Production Assistant: [facility] Pathologist SEE NOTE [facility] Comment:Sharif López M.D., Ph .D.,Board Certified in Anatomic and Clinical Pathologyand Cytopathology(electronic signature)Consulting PathologistHahnemann Hospital Pathology[address] [place] [address] [phone] PAP Infection [facility] See Note SEE NOTE [facility] Comment:EXPLANATORY NOTE:The Pap is a screening test for cervical cancer. It isnot a diagnostic test and is subject to false negativeand false positive results. It is most reliable when asatisfactory sample, regularly obtained, is submittedwith relevant clinical findings and history, and whenthe Pap result is evaluated along with historic andcurrent clinical information.THIS TEST WAS PERFORMED AT:[facility]-[address] AN[address] PATH[address] [place] [phone] COHEN MD Pap Vial Vaginal structure / Unknown 09/02/2024 2:35 PM EDT 09/02/2024 5:28 PM EDT Narrative [facility] - 09/09/2024 3:16 PM EDT SEE SCANNED RESULTS IN EMR Flavia REYNAGA LAB PATHOLOGY ORDERABLES Final Result Performing Organization Address [facility]/ZIP Co de Phone Number [facility] [address] [place] [phone] * Hepatitis C Antibody with Reflex to HCV, RNA, Quantitative, Real-Time PCR (08/28/2024 12:10 PM EDT) Pathologist [facility] Hepatitis C Antibody Nonreactive Nonreactive [facility] Comment:Antibodies to HCV no t detected; does not exclude early acuteHCV infection. Blood Venous blood specimen / Unknown 08/28/2024 12:10 PM EDT 08/28/2024 1:16 PM EDT us Aundrea MOULTON LAB BLOOD ORDERABLES Final Resul t Performing Organization Address [facility] Co de Phone Number [facility] [address] [place] [phone] * HIV-1/2 Antigen and Antibodies, Fourth Generation, with Reflexes (08/28/2024 12:10 PM EDT) HIV AB/AG Nonreactive Nonreactive [facility] Comment:HIV-1 p24 Ag and/or HIV-1/HIV-2 Ab not detected.A test result that is nonreactive does not exclude thepossibility of exposure to or infection with HIV-1 and/orHIV-2. Nonreactive results in this assay for individualswith prior exposure to HIV-1 and/or HIV-2 may be due toantigen and antibody levels that are below the limit ofdetection of this assay.The [employer] HIV Ag/Ab Combo assay result andsupplemental assay results should be interpreted inconjunction with the patient's clinical presentation,history and other laboratory results. If the results areinconsistent with clinical evidence, additional testing issuggested to confirm the result. Blood Venous blood specimen / Unknown 08/28/2024 12:10 PM EDT 08/28/2024 1:16 PM EDT Aundrea Starks [facility] LAB BLOOD ORDERABLES Final Resul t Performing Organization Address [facility] Co de Phone Number [facility] [address] [place] [phone] * (ABNORMAL) Lipid Panel, Standard (08/28/2024 12:10 PM EDT) Triglycerides 87 <150 mg/dL [facility] Comment:Desirable Triglyceri de: less than 150 mg/dLBorderline High Triglyceride 150-199 mg/dLHigh Triglyceride: 200-499 mg/dLVery High Triglyceride: greater than or equal to 5OO mg/dL Cholesterol 151 <200 mg/dL [facility] Comment:Desirable Cholestero l: less than 200 mg/dLBorderline High Cholesterol: 200-239 mg/dLHigh Cholesterol: greater than 239 mg/dL LDL Cholesterol Calculated 102(H) <100 mg/dL [facility] Comment:Desirable LDL: less than 100 mg/dLNear Optimal/Above Optimal LDL: 110- 129 mg/dLBorderline High LDL: 130-159 mg/dLHigh LDL: 160-189 mg/dLVery High LDL: greater than or equal to 190 mg/dL HDL Cholesterol 32(L) >40 mg/dL [facility] Comment:Desirable HDL: grea ter than 40 mg/dL Note: This HDL assay may give artificially low results in patients with liver disease. Blood Venous blood specimen / Unknown 08/28/2024 12:10 PM EDT 08/28/2024 1:16 PM EDT us Aundrea Starks ANP LAB BLOOD ORDERABLES Final Resul t Performing Organization Address [facility]/ZIP Co de Phone Number [facility] [address] [place] [phone] from Last 3 Months or Most Recently Relevant to Health Maintenance Insurance [facility] Care Teams Car Hostler Relationship Specialty Start Date End Date Aundrea Starks ANP [address] [place] [address] PCP - General Family Medicine 07/06/21
--- OUTSIDE RECORDS SUMMARY | 2025-01-14 12:27 | XMS_ITS | Encounter Summary ---
Author Organization [employer] [facility] Address [address] [place] [address] 7t [place] [address] Care Team Providers Care Data Lead Name Role Phone Aundrea Starks Primary Care Provider [phone] Encounter Details Date Type Department Care Team (Latest Contact Info) Description 03/16/2022 Abstract [facility] CONVERSIONS Dental, Provider, DDS Social History [...] Description 02/11/2025 11:00 AM EDT Office Visit [facility] MEDICINE [address] [place] [address] Aundrea Starks ANP [address] [place] [address] documented as of this encounter Visit Diagnoses Not on filedocumented in this encounter Care Teams Data Lead Relationship Specialty Start Date End Date Aundrea Starks ANP [address] [place] [address] PCP - General Family Medicine 07/06/21 documented as of this encounter
--- OUTSIDE RECORDS SUMMARY | 2025-01-14 12:27 | XMS_ITS | Encounter Summary ---
Author Organization [employer] Address [address] [facility] 7t [place] [address] Care Team Providers Care City Superintendent Name Role Phone Elzbieta Bell Primary Care Provider [phone] Reason for Visit * Reason Onset Date Comments Medication Question 01/13/2025 Encounter Details Date Type Department Care Team ([facility] Contact Info) Description 01/13/2025 Telephone [facility] MEDICINE [address] [place], [place] [phone] Elzbieta Bell ANP [address] [place] [address] Medication Question Social History Tobacco Use Types [...] PM EST Pt walked into [employer] desktop publishing associate stating the her Prozac prescription needs a prior authorization. Called [facility] pharmacy, pt was due for refill (on file) for mid November. Pharmacy states medication as written does need a prior authorization, no detail given to pharmacy, however per [facility] stadd if dummy script run with daily capsules (not tablets), the copay is about $2 and no PA required. Will send message to PCP to advise. documented in this encounter Plan of Treatment Upcoming Encounters Date Type Department Care Team (Late st Contact Info) Description 02/11/2025 11:00 AM EDT Office Visit [facility] MEDICINE [address] [place] [address] Elzbieta Bell ANP [address] [place] [address] documented as of this encounter Visit Diagnoses Diagnosis Anxiety Anxiety state, unspecified documented in this encounter Additional Health Concerns Assessment Noted Time PHQ-9 Depression Total Score: 8 09/03/20 24 12:43 PM EDT documented as of this encounter Care Teams City Superintendent Relationship Specialty Start Date End Date Elzbieta Bell ANP [address] [place] [address] PCP - General Family Medicine 07/06/21 documented as of this encounter
--- OUTSIDE RECORDS SUMMARY | 2025-01-14 12:27 | XMS_ITS | Encounter Summary ---
Author Organization [employer] Address [address] [facility] [address] 7t [place] [address] Care Team Providers Care Electricians Top Helper Name Role Phone Aundrea Starks Primary Care Provider [phone] Encounter Details Date Type Department Care Team [...] 11:00 AM EDT Office Visit [facility] MED[facility]INE [address] [place] [address] Aundrea Starks ANP 230 [place] [address] documented as of this encounter Visit Diagnoses Not on filedocumented in this encounter Additional Health Concerns Assessment Noted Time PHQ-9 Depression Total Score: 8 09/03/20 24 12:43 PM EDT documented as of this encounter Care Teams Electricians Top Helper Relationship Specialty Start Date End Date Aundrea Starks ANP [address] [place] [address] PCP - General Family Medicine 07/06/21 documented as of this encounter
--- OUTSIDE RECORDS SUMMARY | 2025-01-14 12:27 | XMS_ITS | Encounter Summary ---
Author Organization [employer] Address [address] [facility] 7t [place] [address] Care Team Providers Care Pelletizer Tender Name Role Phone Aundrea Starks Primary Care Provider [phone] Reason for Visit * Reason Comments Med Refill Encounter Details Date Type Department Care Team ([facility] Contact Info) Description 08/25/[address] [facility] [address] [place], [place] [phone] Aundrea Starks ANP 230 [place] [address] Anxiety Social History Tobacco Use Types Packs/Day [...] 02/11/2025 11:00 AM EDT Office Visit [facility] MED[facility]INE [address] [place] [address] Aundrea Starks ANP [address] [place] [address] documented as of this encounter Visit Diagnoses Diagnosis Anxiety Anxiety state, unspecified documented in this encounter Care Teams Pelletizer Tender Relationship Specialty Start Date End Date Aundrea Starks ANP [address] [place] [address] PCP - General Family Medicine 07/06/21 documented as of this encounter
--- OUTSIDE RECORDS SUMMARY | 2025-01-14 12:27 | XMS_ITS | Encounter Summary ---
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 female who presents for BEAUTY COUNSELOR visit Here with mother. LSIL r/o HSIL pap 08/2024, referred for colposcopy. Has appt at [facility] 01/14 at 8:45. She actually had colpo in [facility] 09/2024, which showed CIN1. Also had pelvic ultrasound and Endometrial biopsy which showed simple endometrial hyperplasia without atypia. She was treated with IM then oral Provera. Finished Provera last month and had menses after that. Planning to go backto [facility] soon. Taking , would like to get [...] EDT Office Visit [facility] 230 [place], [place] [phone] Aundrea Starks ANP 230 [place] [address] documented as of this encounter Procedures Procedure [...] documented as of this encounter Care Teams Manager Ct Relationship Specialty Start Date End Date Aundrea Starks ANP [address] [place] [address] PCP - General Family Medicine 07/06/21 documented as of this encounter
[2025-01-14 18:18] LABS: CT PCR NOT DETECTED (Not Detect.); NG PCR NOT DETECTED (Not Detect.)
[2025-01-22 17:23] LABS: Testosterone, Total 14 ng/dL (2-45)
== END 2025-01-14 08:38 | disposition home or self-care (01) ==
LOC: HO.LAB 08:37
PROVIDERS: PCP Nurse Practitioner Primary Care; Visit Provider Obstetrics & Gynecology
DX: R87.612 Low grade squamous intraepithelial lesion on cytologic smear of cervix (LGSIL) (principal); N85.01 Benign endometrial hyperplasia; N93.9 Abnormal uterine and vaginal bleeding, unspecified
CPT/HCPCS: 36415; 57454; 58110; 83498; 84402; 84403; 85027; 87491; 87591; 99202

== ENCOUNTER 2025-01-14 10:48 | Outpatient (REF) | payer OTHER, SELFPAY ==
--- OUTSIDE RECORDS SUMMARY | 2025-01-14 13:21 | XMS_ITS | Encounter Summary ---
Author Organization [employer] Address [address] [facility] 7t [place] [address] Care Team Providers Care Sports Broadcaster Name Role Phone Aundrea Starks Primary Care Provider [phone] Reason for Visit * Reason Onset Date Comments Appointment Request 01/06/2025 Encounter Details Date Type Department Care Team ([facility] Contact Info) Description 01/06/2025 Telephone [facility] MEDICINE 230 [place], [place] [phone] Aundrea Starks ANP 230 [place] [address] Appointment Request Social History Tobacco Use Types [...] about the same as the first time. Supervisor Offset Plate Preparation advised pt of the Upcoming Apt on 01/16/25 and she was wondering if there was anything earlier. Contact pt at [phone] documented in this encounter Plan of Treatment Upcoming Encounters Date Type Department Care Team (Late st Contact Info) Description 02/11/2025 11:00 AM EDT Office Visit [facility] MEDICINE [address] [place] [address] Aundrea Starks ANP 230 [place] [address] documented as of this encounter Visit Diagnoses Not on filedocumented in this encounter Additional Health Concerns Assessment Noted Time PHQ-9 Depression Total Score: 8 09/03/20 24 12:43 PM EDT documented as of this encounter Care Teams Sports Broadcaster Relationship Specialty Start Date End Date Aundrea Starks ANP [address] [place] [address] PCP - General Family Medicine 07/06/21 documented as of this encounter
--- OUTSIDE RECORDS SUMMARY | 2025-01-14 13:21 | XMS_ITS | Encounter Summary ---
Author Organization [employer] Address [address] [facility] 7t [place] [address] Care Team Providers Care Laundry Technician Name Role Phone Aundrea Starks Primary Care Provider [phone] Reason for Visit * Reason Comments Med Refill Encounter Details Date Type Department Care Team ([facility] Contact Info) Description 08/25/2023 Refill [facility] 230 [place], [place] [phone] Aundrea Starks ANP 230 [place] [address] Anxiety Social History Tobacco Use Types Packs/Day [...] 02/11/2025 11:00 AM EDT Office Visit [facility] [address] [place] [address] Aundrea Starks ANP 230 [place] [address] documented as of this encounter Visit Diagnoses Diagnosis Anxiety Anxiety state, unspecified documented in this encounter Care Teams Laundry Technician Relationship Specialty Start Date End Date Aundrea Starks ANP [address] [place] [address] PCP - General Family Medicine 07/06/21 documented as of this encounter
--- OUTSIDE RECORDS SUMMARY | 2025-01-14 13:21 | XMS_ITS | Encounter Summary ---
Author Organization [employer] Address 75 [facility] 7t [place] [address] Care Team Providers Care Special Needs Nanny Name Role Phone Aundrea Starks Primary Care Provider [phone] Reason for Visit * Reason Comments Pre-visit Planning SDOH Screening negat wendy and Tobacco screening negative Encounter Details Date Type Department Care Team ([facility] st Contact Info) Description 12/19/2024 Patient Outreach [facility] 230 [place] [address] Aundrea Starks ANP 230 [place] [address] Pre-visit Planning (SDOH Screening negative and Tobacco [...] Description 02/11/2025 11:00 AM EDT Office Visit [facility] 230 [place] [address] Aundrea Starks ANP 230 [place] [address] documented as of this encounter Visit Diagnoses Not on filedocumented in this encounter Additional Health Concerns Assessment Noted Time PHQ-9 Depression Total Score: 8 09/03/20 24 12:43 PM EDT documented as of this encounter Care Teams Special Needs Nanny Relationship Specialty Start Date End Date Aundrea Starks ANP 230 [place] [address] PCP - General Family Medicine 07/06/21 documented as of this encounter
--- OUTSIDE RECORDS SUMMARY | 2025-01-14 13:21 | XMS_ITS | Encounter Summary ---
Author Organization [employer] Address [address] [facility] [address] 7t [place] [address] Care Team Providers Care Pattern Marking Supervisor Name Role Phone Aundrea Starks Primary Care Provider [phone] Encounter Details Date Type Department Care Team [...] Description 02/11/2025 11:00 AM EDT Office Visit [facility] MEDICINE [address] [place] [address] Aundrea Starks ANP 230 [place] [address] documented as of this encounter Visit Diagnoses Not on filedocumented in this encounter Additional Health Concerns Assessment Noted Time PHQ-9 Depression Total Score: 8 09/03/20 24 12:43 PM EDT documented as of this encounter Care Teams Pattern Marking Supervisor Relationship Specialty Start Date End Date Aundrea Starks ANP [address] [place] [address] PCP - General Family Medicine 07/06/21 documented as of this encounter
--- OUTSIDE RECORDS SUMMARY | 2025-01-14 13:21 | XMS_ITS | Encounter Summary ---
Author Organization [employer] Address 75 [facility] 7t [place] [address] Care Team Providers Care Character Actress Name Role Phone Elzbieta Bell Primary Care Provider [phone] Reason for Visit * Reason Onset Date Comments Medication Question 01/13/2025 Encounter Details Date Type Department Care Team ([facility] Contact Info) Description 01/13/[address] 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 Called [facility] pharmacy, pt was due for refill (on file) for mid November. Pharmacy states medication as written does need a prior authorization, no detail given to pharmacy, however per [facility] stadd if dummy script run with daily capsules (not tablets), the copay is about $2 and no PA required. Will send message to PCP to advise. documented in this encounter Plan of Treatment Upcoming Encounters Date Type Department Care Team (Late st Contact Info) Description 02/11/2025 11:00 AM EDT Office Visit [facility] 230 [place] [address] Elzbieta Bell ANP 230 [place] [address] documented as of this encounter Visit Diagnoses Diagnosis Anxiety Anxiety state, unspecified documented in this encounter Additional Health Concerns Assessment Noted Time PHQ-9 Depression Total Score: 8 09/03/20 24 12:43 PM EDT documented as of this encounter Care Teams Character Actress Relationship Specialty Start Date End Date Elzbieta Bell ANP 230 [place] [address] PCP - General Family Medicine 07/06/21 documented as of this encounter
--- OUTSIDE RECORDS SUMMARY | 2025-01-14 13:21 | XMS_ITS | Encounter Summary ---
Author Organization [employer] Address [address] [facility] [address] 7t [place] [address] Care Team Providers Care Duplicating Machine Mechanic Name Role Phone Aundrea Starks Primary Care Provider [phone] Encounter Details Date Type Department Care Team ([facility] st Contact Info) Description 11/18/2024 Telephone [facility] MEDICINE 230 [place] [address] Aundrea Starks ANP 230 [place] [address] Social History Tobacco Use Types Packs/Day Years [...] 11:00 AM EDT Office Visit [facility] MEDICINE [address] [place] [address] Aundrea Starks ANP 230 [place] [address] documented as of this encounter Visit Diagnoses Not on filedocumented in this encounter Additional Health Concerns Assessment Noted Time PHQ-9 Depression Total Score: 8 09/03/20 24 12:43 PM EDT documented as of this encounter Care Teams Duplicating Machine Mechanic Relationship Specialty Start Date End Date Aundrea Starks ANP [address] [place] [address] PCP - General Family Medicine 07/06/21 documented as of this encounter
--- OUTSIDE RECORDS SUMMARY | 2025-01-14 13:21 | XMS_ITS | Clinical Summary ---
Author Organization [facility] Address [address] [place] [phone] Care Team Providers Care Circuit Manager Name Role Phone Unavailable Primary Care Provider [...]
--- OUTSIDE RECORDS SUMMARY | 2025-01-14 13:21 | XMS_ITS | Encounter Summary ---
Author Organization [employer] Address [address] [facility] [address] 7t [place] [address] Care Team Providers Care Septic Tank Cleaner Name Role Phone Aundrea Starks Primary Care Provider [phone] Encounter Details Date Type Department Care Team [...] EDT Office Visit [facility] 230 [place] [address] Aundrea Starks, ANP 230 [place] [address] documented as of this encounter Procedures Procedure Name Priority Date/Time Associated Diagnosis Comments CBC Routine 01/14/2025 10:36 AM EST documented in this encounter Results * (ABNORMAL) CBC (01/14/2025 10:36 AM EST) White Blood Count 10.9(H) 4.8 - 10.8 X10*3/uL [facility] Red Blood Count 5.43 4.20 - 5.50 X10*6/uL [facility] Hemoglobin 12.0 12.0 - 16.0 g/dl [facility] Hematocrit 40.0 37.0 - 47.0 % [facility] Mean Corpuscular Volume 73.7(L) 80.0 - 98.0 fL [facility] Mean Corpuscular Hemoglobin 22.1(L) 27.0 - 33.0 pg [facility] Mean Corpuscular HGB Conc 30.0(L) 31.0 - 35.0 g/dl [facility] Red Cell Distribution Width 17.9(H) 11.0 - 16.0 % [facility] Platelet Count 418(H) 160 - 400 X10*3/uL [facility] Mean Platelet Volume 9.7 9.4 - 12.3 fL [facility] NRBC Pct Auto 0.0 0.0 - 0.2 /100WBC [facility] NRBC Abs Auto 0.000 0.0 - 0.012 X10*3/uL [facility] 01/14/2025 10:3 6 AM EST 01/14/2025 10:36 AM EST us Generic External Data Provider LAB BLOOD ORDERAB LES Final Result [facility] [address] [place] [phone] [phone] documented in this encounter Visit Diagnoses Not on filedocumented in this encounter Additional Health Concerns Assessment Noted Time PHQ-9 Depression Total Score: 8 09/03/20 24 12:43 PM EDT documented as of this encounter Care Teams Septic Tank Cleaner Relationship Specialty Start Date End Date Aundrea Starks ANP 230 [place] [address] PCP - General Family Medicine 07/06/21 documented as of this encounter
--- OUTSIDE RECORDS SUMMARY | 2025-01-14 13:21 | XMS_ITS | Encounter Summary ---
Author Organization [facility] Address [address] [place] [address] 7t [place] [address] Care Team Providers Care Manager Special Events Name Role Phone Aundrea Starks Primary Care Provider [phone] Encounter Details Date Type Department Care Team (Latest Contact Info) Description 03/16/2022 Abstract [facility] CONVERSIONS Dental, Provider, DDS Social History [...] 11:00 AM EDT Office Visit [facility] MEDICINE 230 [place] [address] Aundrea Starks ANP 230 [place] [address] documented as of this encounter Visit Diagnoses Not on filedocumented in this encounter Care Teams Manager Special Events Relationship Specialty Start Date End Date Aundrea Starks ANP 230 [place] [address] PCP - General Family Medicine 07/06/21 documented as of this encounter
--- OUTSIDE RECORDS SUMMARY | 2025-01-14 13:21 | XMS_ITS | Clinical Summary ---
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); Dysplasia of cervix, low grade (AWA 1) 01/13/[address] [address] Aundrea Starks ANP Medication Question 01/13/2025 Travel 01/06/[address] [address] Aundrea Starks ANP Appointment Request 12/19/2024 Patient Outreach [address] [address] Aundrea Starks ANP Pre-visit Planning (SDOH Screening negative and Tobacco screening negative) 11/18/[address] [address] Aundrea Starks ANP 11/04/[address] [phone] Shazia Leach [place] December recall from Last [...] EDT Office Visit [facility] 230 [place] [address] Aundrea Starks ANP 230 [place], [place] [phone] Health Maintenance Due Date Last Done Comments [...] Blood Count 10.9(H) 4.8 - 10.8 X10*3/uL [facility] Red Blood Count 5.43 4.20 - 5.50 X10*6/uL [facility] Hemoglobin 12.0 12.0 - 16.0 g/dl [facility] Hematocrit 40.0 37.0 - 47.0 % [facility] Mean Corpuscular Volume 73.7(L) 80.0 - 98.0 fL [facility] Mean Corpuscular Hemoglobin 22.1(L) 27.0 - 33.0 pg [facility] Mean Corpuscular HGB Conc 30.0(L) 31.0 - 35.0 g/dl [facility] Red Cell Distribution Width 17.9(H) 11.0 - 16.0 % [facility] Platelet Count 418(H) 160 - 400 X10*3/uL [facility] Mean Platelet Volume 9.7 9.4 - 12.3 fL [facility] NRBC Pct Auto 0.0 0.0 - 0.2 /100WBC [facility] NRBC Abs Auto 0.000 0.0 - 0.012 X10*3/uL [facility] 01/14/2025 10:3 6 AM EST 01/14/2025 10:36 AM EST us Generic External Data Provider LAB BLOOD ORDERAB LES Final Result [facility] [address] [place] [phone] * Colposcopy (10/03/2024 12:00 AM EST) us Historical Provider MD IN CLINIC/BEDSIDE ORDERAB LES Final Result EXTERNAL LAB * (ABNORMAL) Pap Smear (09/02/2024 2:35 PM EDT) SOURCE: SEE NOTE [facility] Comment:Cervix Report Status: [facility] Clinical Information: SEE NOTE [facility] Comment:None given LMP: SEE NOTE [facility] Comment:NONE GIVEN Prev. PAP: SEE NOTE [facility] Comment:NONE GIVEN Prev. BX: SEE NOTE [facility] Comment:NONE GIVEN Statement Of Adequacy: SEE NOTE [facility] Comment:Satisfactory for dinora luation.Endocervical/transformation zone componentpresent. General Categorization: SEE NOTE(A) [facility] Comment:Cytology Results: Ep ithelial Cell Abnormality Interpretation/Resul t: SEE NOTE(A) [facility] Comment:Low Grade Squamous I ntraepithelial Lesion, (LSIL),a more advanced lesion may be present Cytology Comment SEE NOTE [facility] Comment:This Pap test has be en evaluated with computerassisted technology. Cruller Maker: SEE NOTE [facility] Comment:MRS, CT(ASCP)CT scre ening location: [facility] [address] [address]Itcld preparation performed at: [facility] [address] CLIA No. [id number] Review Cruller Maker: [facility] Pathologist SEE NOTE [facility] Comment:Sharif López M.D., Ph .D.,Board Certified in Anatomic and Clinical Pathologyand Cytopathology(electronic signature)Consulting PathologistShriners Children's Pathology[address] [place] [address] [phone] PAP Infection [facility] See Note SEE NOTE [facility] Comment:EXPLANATORY NOTE:The Pap is a screening test for cervical cancer. It isnot a diagnostic test and is subject to false negativeand false positive results. It is most reliable when asatisfactory sample, regularly obtained, is submittedwith relevant clinical findings and history, and whenthe Pap result is evaluated along with historic andcurrent clinical information.THIS TEST WAS PERFORMED AT:[facility] [place] [phone] COHEN MD Pap Vial Vaginal structure / Unknown 09/02/2024 2:35 PM EDT 09/02/2024 5:28 PM EDT Narrative [facility] - 09/09/2024 3:16 PM EDT SEE SCANNED RESULTS IN EMR Flavia REYNAGA LAB PATHOLOGY ORDERABLES Final Result Performing Organization Address [facility]/ZIP Co de Phone Number [facility] [address] [place] [phone] * Hepatitis C Antibody with Reflex to HCV, RNA, Quantitative, Real-Time PCR (08/28/2024 12:10 PM EDT) Pathologist [facility] Hepatitis C Antibody Nonreactive Nonreactive [facility] Comment:Antibodies to HCV no t detected; does not exclude early acuteHCV infection. Blood Venous blood specimen / Unknown 08/28/2024 12:10 PM EDT 08/28/2024 1:16 PM EDT us Aundrea MOULTON LAB BLOOD ORDERABLES Final Resul t Performing Organization Address [facility] Co de Phone Number [facility] [address] [place] [phone] * HIV-1/2 Antigen and Antibodies, Fourth Generation, with Reflexes (08/28/2024 12:10 PM EDT) HIV AB/AG Nonreactive Nonreactive [facility] Comment:HIV-1 p24 Ag and/or HIV-1/HIV-2 Ab not detected.A test result that is nonreactive does not exclude thepossibility of exposure to or infection with HIV-1 and/orHIV-2. Nonreactive results in this assay for individualswith prior exposure to HIV-1 and/or HIV-2 may be due toantigen and antibody levels that are below the limit ofdetection of this assay.The [employer] HIV Ag/Ab Combo assay result andsupplemental assay results should be interpreted inconjunction with the patient's clinical presentation,history and other laboratory results. If the results areinconsistent with clinical evidence, additional testing issuggested to confirm the result. Blood Venous blood specimen / Unknown 08/28/2024 12:10 PM EDT 08/28/2024 1:16 PM EDT Aundrea Starks [facility] LAB BLOOD ORDERABLES Final Resul t Performing Organization Address [facility] Co de Phone Number [facility] [address] [place] [phone] * (ABNORMAL) Lipid Panel, Standard (08/28/2024 12:10 PM EDT) Triglycerides 87 <150 mg/dL [facility] Comment:Desirable Triglyceri de: less than 150 mg/dLBorderline High Triglyceride 150-199 mg/dLHigh Triglyceride: 200-499 mg/dLVery High Triglyceride: greater than or equal to 5OO mg/dL Cholesterol 151 <200 mg/dL [facility] Comment:Desirable Cholestero l: less than 200 mg/dLBorderline High Cholesterol: 200-239 mg/dLHigh Cholesterol: greater than 239 mg/dL LDL Cholesterol Calculated 102(H) <100 mg/dL [facility] Comment:Desirable LDL: less than 100 mg/dLNear Optimal/Above Optimal LDL: 110- 129 mg/dLBorderline High LDL: 130-159 mg/dLHigh LDL: 160-189 mg/dLVery High LDL: greater than or equal to 190 mg/dL HDL Cholesterol 32(L) >40 mg/dL [facility] Comment:Desirable HDL: grea ter than 40 mg/dL Note: This HDL assay may give artificially low results in patients with liver disease. Blood Venous blood specimen / Unknown 08/28/2024 12:10 PM EDT 08/28/2024 1:16 PM EDT us Aundrea Starks ANP LAB BLOOD ORDERABLES Final Resul t Performing Organization Address [facility]/ZIP Co de Phone Number [facility] [address] [place] [phone] from Last 3 Months or Most Recently Relevant to Health Maintenance Insurance [facility] Care Teams Educational Advisor Relationship Specialty Start Date End Date Aundrea Starks ANP [address] [place] [address] PCP - General Family Medicine 07/06/21
--- OUTSIDE RECORDS SUMMARY | 2025-01-14 13:21 | XMS_ITS | Encounter Summary ---
Author Organization [employer] Address [address] [facility] 7t [place] [address] Care Team Providers Care Continuing Education Dean Name Role Phone Aundrea Starks KENNEY Primary Care Provider [phone] Reason for Visit * Reason Comments Med Refill Encounter Details Date Type Department [facility] ([facility] Description 09/27/2024 Refill [facility] MEDICINE [address] [place] [address] Flavia Cancino CNM [address] [place] [address] Social History Tobacco Use Types Packs/Day Years [...] Description 02/11/2025 11:00 AM EDT Office Visit [facility] MEDICINE [address] [place] [address] Aundrea Starks ANP 230 [place] [address] documented as of this encounter Visit Diagnoses Not on filedocumented in this encounter Additional Health Concerns Assessment Noted Time PHQ-9 Depression Total Score: 8 09/03/20 24 12:43 PM EDT documented as of this encounter Care Teams Continuing Education Dean Relationship Specialty Start Date End Date Aundrea Starks ANP [address] [place] [id number] PCP - General Family Medicine 07/06/21 documented as of this encounter
--- OUTSIDE RECORDS SUMMARY | 2025-01-14 13:21 | XMS_ITS | Encounter Summary ---
Author Organization [employer] Address [address] [facility] [address] 7t [place] [address] Care Team Providers Care Bronc Breaker Name Role Phone Aundrea Starks KENNEY Primary Care Provider [phone] Encounter Details Date Type Department Care Team ([facility] st Contact Info) Description 01/13/2025 1:15 PM EST Office Visit [facility] MEDICINE [address] [place] [address] Flavia Cancino CNM [address] [place] [address] Endometrial hyperplasia without atypia (Primary Dx); Dysplasia [...] the past 12 months, has t he [employer], gas, oil or water company threatened to [...] 1:15 PM EST Subjective Patient ID: Sachi Millre is a 24 y.o. female who presents for AUDITING CLERK visit Here with mother. LSIL r/o HSIL pap 08/2024, referred for colposcopy. [place] [facility] 8:[place]. She actually had colpo in [facility] 09/2024, which showed CIN1. Also had pelvic ultrasound and Endometrial biopsy which showed simple endometrial hyperplasia without atypia. She was treated with IM then oral Provera. Finished Provera last month and had menses after that. Planning to go backto [facility] soon. Taking , would like [...] Description 02/11/2025 11:00 AM EDT Office Visit [facility] MEDICINE [address] [place], [place] [phone] Aundrea Starks ANP [address] [place] [address] documented as of this encounter Procedures Procedure [...] documented as of this encounter Care Teams Bronc Breaker Relationship Specialty Start Date End Date Aundrea Starks ANP [address] [place] [address] PCP - General Family Medicine 07/06/21 documented as of this encounter
== END 2025-01-14 10:49 | disposition home or self-care (01) ==
LOC: HO.LNP 10:48
PROVIDERS: Visit Provider Obstetrics & Gynecology
DX: N93.9 Abnormal uterine and vaginal bleeding, unspecified (principal); N85.01 Benign endometrial hyperplasia; R87.612 Low grade squamous intraepithelial lesion on cytologic smear of cervix (LGSIL)
CPT/HCPCS: 88175; 88305

== ENCOUNTER 2025-01-16 12:53 | Outpatient (REF) | payer OTHER, SELFPAY ==
--- NOTE | ~2025-01-16 | US_ITS ---
CLINICAL HISTORY: N93.9 - Abnormal uterine and vaginal bleeding, unspecified US pelvis transabdominal and transvaginal with color Doppler Comparison: None Findings: Transabdominal scanning performed for overall anatomy. Transvaginal scanning performed for additional detail. LMP: Dysfunctional uterine bleeding Anteverted uterus, normal size and echotexture, measuring 7.7 x 4.2 x 5.2 cm. Well defined endometrium, measuring 7.0 mm in thickness. Incidental nabothian cysts. Right ovary not identified. The left ovary measures, 3.5 x 1.7 x 1.5 cm. Normal sonographic appearance left ovary. No adnexal masses or fluid collections. No free fluid Impression: 1. Limited exam due to patient's body habitus. 2. Well-defined endometrium at 7 mm homogeneous in echotexture with no hyperemia. 3. Right ovary not identified. Normal sonographic appearance left ovary. No adnexal masses. This document has been electronically signed by: Rajesh Prabhakar MD on 01/18/2025 12:41:59
--- OUTSIDE RECORDS SUMMARY | 2025-01-16 15:31 | XMS_ITS | Clinical Summary ---
Author Organization [facility] Address [address] [place] [phone] Care Team Providers Care Administrative Liaison Name Role Phone Unavailable Primary Care Provider [...]
--- OUTSIDE RECORDS SUMMARY | 2025-01-16 15:31 | XMS_ITS | Encounter Summary ---
Author Organization [employer] Address [address] [facility] 7t [place] [address] Care Team Providers Care Data Clerk Name Role Phone Aundrea Starks Primary Care Provider [phone] Reason for Visit * Reason Comments Pre-visit Planning SDOH Screening negat wendy and Tobacco screening negative Encounter Details Date Type Department Care Team ([facility] st Contact Info) Description 12/19/2024 Patient Outreach [facility] MEDICINE [address] [place] [address] Aundrea Starks ANP [address] [place] [address] Pre-visit Planning (SDOH Screening negative and Tobacco [...] Description 02/11/2025 11:00 AM EDT Office Visit [facility] MEDICINE [address] [place] [address] Aundrea Starks ANP [address] [place] [address] documented as of this encounter Visit Diagnoses Not on filedocumented in this encounter Additional Health Concerns Assessment Noted Time PHQ-9 Depression Total Score: 8 09/03/20 24 12:43 PM EDT documented as of this encounter Care Teams Data Clerk Relationship Specialty Start Date End Date Aundrea Starks ANP [address] [place] [address] PCP - General Family Medicine 07/06/21 documented as of this encounter
--- OUTSIDE RECORDS SUMMARY | 2025-01-16 15:31 | XMS_ITS | Encounter Summary ---
Author Organization [employer] Address [address] [facility] 7t [place] [address] Care Team Providers Care Greens Tier Name Role Phone Aundrea Starks KENNEY Primary Care Provider [phone] Reason for Visit * Reason Comments Med Refill Encounter Details Date Type Department Care Team ([facility] Contact Info) Description 09/27/2024 Refill [facility] MEDICINE [address] [place] [address] Flavia Cancino CNM [address] [place] [address] Social History Tobacco Use Types Packs/Day Years [...] 11:00 AM EDT Office Visit [facility] MEDICINE [address] [place] [address] Aundrea Starks ANP [address] [place] [address] documented as of this encounter Visit Diagnoses Not on filedocumented in this encounter Additional Health Concerns Assessment Noted Time PHQ-9 Depression Total Score: 8 09/03/20 24 12:43 PM EDT documented as of this encounter Care Teams Greens Tier Relationship Specialty Start Date End Date Aundrea Starks ANP [address] [place] [address] PCP - General Family Medicine 07/06/21 documented as of this encounter
--- OUTSIDE RECORDS SUMMARY | 2025-01-16 15:31 | XMS_ITS | Encounter Summary ---
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 female who presents for RADIOTELEGRAPHIST visit Here with mother. LSIL r/o HSIL pap 08/2024, referred for colposcopy. Has appt [place] [facility] [place] at 8:45. She actually had colpo in [facility] 09/2024, which showed CIN1. Also had pelvic ultrasound and Endometrial biopsy which showed simple endometrial hyperplasia without atypia. She was treated with IM then oral Provera. Finished Provera last month and had menses after that. Planning to go backto [facility] soon. Taking , would like to [...] 11:00 AM EDT Office Visit [facility] MEDICINE [address] [place], [place] [phone] Aundrea Starks ANP 230 [place] [address] documented as of this encounter Procedures Procedure [...] documented as of this encounter Care Teams Drawing Instructor Relationship Specialty Start Date End Date Aundrea Starks ANP [address] [place] [address] PCP - General Family Medicine 07/06/21 documented as of this encounter
--- OUTSIDE RECORDS SUMMARY | 2025-01-16 15:31 | XMS_ITS | Encounter Summary ---
Author Organization [employer] Address [address] [facility] [address] 7t [place] [address] Care Team Providers Care Oncology Nurse Name Role Phone Aundrea Starks Primary Care Provider Encounter Details Date Type Department Care Team ([facility] st Contact Info) Description 11/18/2024 Telephone [facility] MEDICINE [address] [place] [address] Aundrea Starks ANP [address] [place] [address] Social History Tobacco Use Types Packs/Day Years [...] Description 02/11/2025 11:00 AM EDT Office Visit [facility] MEDICINE [address] [place] [address] Aundrea Starks ANP [address] [place] [address] documented as of this encounter Visit Diagnoses Not on filedocumented in this encounter Additional Health Concerns Assessment Noted Time PHQ-9 Depression Total Score: 8 09/03/20 24 12:43 PM EDT documented as of this encounter Care Teams Oncology Nurse Relationship Specialty Start Date End Date Aundrea Starks ANP [address] [place] [address] PCP - General Family Medicine 07/06/21 documented as of this encounter
--- OUTSIDE RECORDS SUMMARY | 2025-01-16 15:31 | XMS_ITS | Encounter Summary ---
Author Organization [employer] Address [address] [facility] [facility] [address] 7t [place] [address] Care Team Providers Care Internal Auditor Name Role Phone Aundrea Starks Primary Care Provider [phone] Encounter Details Date Type Department Care Team [...] Description 02/11/2025 11:00 AM EDT Office Visit [facility] MEDICINE [address] [place] [address] Aundrea Starks ANP 230 [place] [address] documented as of this encounter Visit Diagnoses Not on filedocumented in this encounter Additional Health Concerns Assessment Noted Time PHQ-9 Depression Total Score: 8 09/03/20 24 12:43 PM EDT documented as of this encounter Care Teams Internal Auditor Relationship Specialty Start Date End Date Aundrea Starks ANP [address] [place] [id number] PCP - General Family Medicine 07/06/21 documented as of this encounter
--- OUTSIDE RECORDS SUMMARY | 2025-01-16 15:31 | XMS_ITS | Encounter Summary ---
Author Organization [employer] Address [address] [facility] 7t [place] [address] Care Team Providers Care Mask Layout Designer Name Role Phone Elzbieta Bell Primary Care Provider [phone] Reason for Visit * Reason Onset Date Comments Medication Question 01/13/2025 Encounter Details Date Type Department Care Team ([facility] Contact Info) Description 01/13/2025 Telephone [facility] MEDICINE [address] [place], [place] [phone] Elzbieta Bell ANP [address] [place] [address] Medication Question Social History Tobacco Use Types [...] PM EST 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 Called [facility] pharmacy, pt was due for refill (on file) for mid November. Pharmacy states medication as written does need a prior authorization, no detail given to pharmacy, however per [facility] stadd if dummy script run with daily capsules (not tablets), the copay is about $2 and no PA required. Will send message to PCP to advise. documented in this encounter Plan of Treatment Upcoming Encounters Date Type Department Care Team (Late st Contact Info) Description 02/11/2025 11:00 AM EDT Office Visit [facility] MEDICINE [address] [place] [address] Elzbieta Bell ANP [address] [place] [address] documented as of this encounter Visit Diagnoses Diagnosis Anxiety Anxiety state, unspecified documented in this encounter Additional Health Concerns Assessment Noted Time PHQ-9 Depression Total Score: 8 09/03/20 24 12:43 PM EDT documented as of this encounter Care Teams Mask Layout Designer Relationship Specialty Start Date End Date Elzbieta Bell ANP [address] [place] [address] PCP - General Family Medicine 07/06/21 documented as of this encounter
--- OUTSIDE RECORDS SUMMARY | 2025-01-16 15:31 | XMS_ITS | Encounter Summary ---
Author Organization [employer] [facility] Address [address] [place] [address] 7t [place] [address] Care Team Providers Care Loom Mechanic Name Role Phone Aundrea Starks Primary Care Provider [phone] Encounter Details Date Type Department Care Team (Latest Contact Info) Description 03/16/2022 Abstract [facility] CONVERSIONS Dental, Provider, DDS Social History Tobacco [...] Description 02/11/2025 11:00 AM EDT Office Visit [facility] MEDICINE [address] [place] [address] Aundrea Starks ANP 230 [place] [address] documented as of this encounter Visit Diagnoses Not on filedocumented in this encounter Care Teams Loom Mechanic Relationship Specialty Start Date End Date Aundrea Starks ANP [address] [place] [address] PCP - General Family Medicine 07/06/21 documented as of this encounter
--- OUTSIDE RECORDS SUMMARY | 2025-01-16 15:31 | XMS_ITS | Encounter Summary ---
Author Organization [employer] Address [address] [facility] 7t [place] [address] Care Team Providers Care Office Technician Name Role Phone Aundrea Starks Primary Care Provider [phone] Reason for Visit * Reason Onset Date Comments Appointment Request 01/06/2025 Encounter Details Date Type Department Care Team ([facility] Contact Info) Description 01/06/2025 Telephone [facility] MEDICINE [address] [place] [address] Aundrea Starks ANP [address] [place] [address] Appointment Request Social History Tobacco Use Types [...] about the same as the first time. Automotive Software Engineer advised pt of the Upcoming Apt on 01/16/25 and she was wondering if there was anything earlier. Contact pt at [phone] documented in this encounter Plan of Treatment Upcoming Encounters Date Type Department Care Team (Late st Contact Info) Description 02/11/2025 11:00 AM EDT Office Visit [facility] MEDICINE [address] [place] [address] Aundrea Starks ANP [address] [place] [address] documented as of this encounter Visit Diagnoses Not on filedocumented in this encounter Additional Health Concerns Assessment Noted Time PHQ-9 Depression Total Score: 8 09/03/20 24 12:43 PM EDT documented as of this encounter Care Teams Office Technician Relationship Specialty Start Date End Date Aundrea Starks ANP [address] [place] [address] PCP - General Family Medicine 07/06/21 documented as of this encounter
--- OUTSIDE RECORDS SUMMARY | 2025-01-16 15:31 | XMS_ITS | Encounter Summary ---
Author Organization [employer] Address [address] [facility] [address] 7[address] [place] [address] Care Team Providers Care Smoke Jumper Name Role Phone Aundrea Starks Primary Care [...] Description 02/11/2025 11:00 AM EDT Office Visit [facility] MEDICINE 230 [place] [address] Aundrea Starks, ANP 230 [place] [address] documented as of this encounter Procedures Procedure Name Priority Date/Time Associated Diagnosis Comments CBC Routine 01/14/2025 10:36 AM EST CHLAMYDIA/N. GONORRHOEAE RNA, TMA, UROGENITAL Routine 01/14/2025 8:37 AM EST documented in this encounter Results * (ABNORMAL) CBC (01/14/2025 10:36 AM EST) White Blood Count 10.9(H) 4.8 - 10.8 X10*3/uL [facility] Red Blood Count 5.43 4.20 - 5.50 X10*6/uL [facility] Hemoglobin 12.0 12.0 - 16.0 g/dl [facility] Hematocrit 40.0 37.0 - 47.0 % [facility] Mean Corpuscular Volume 73.7(L) 80.0 - 98.0 fL [facility] Mean Corpuscular Hemoglobin 22.1(L) 27.0 - 33.0 pg [facility] Mean Corpuscular HGB Conc 30.0(L) 31.0 - 35.0 g/dl [facility] Red Cell Distribution Width 17.9(H) 11.0 - 16.0 % [facility] Platelet Count 418(H) 160 - 400 X10*3/uL [facility] Mean Platelet Volume 9.7 9.4 - 12.3 fL [facility] NRBC Pct Auto 0.0 0.0 - 0.2 /100WBC [facility] NRBC Abs Auto 0.000 0.0 - 0.012 X10*3/uL [facility] 01/14/2025 10:3 6 AM EST 01/14/2025 10:36 AM EST us Generic External Data Provider LAB BLOOD ORDERAB LES Final Result [facility] [address] [place] [address] [phone] * Chlamydia/N. Gonorrhoeae RNA, TMA, Urogenitial (01/14/2025 8:37 AM EST) CT PCR NOT DETECTED Not Detect. [facility] Comment:A not detected test result does not exclude the possibilityof infection because test results can be affected byimproper specimen collection, concurrent antibiotic therapy,or the number of organisms in the specimen which may bebelow the sensitivity of the test. As with many diagnostictests, results from the Xpert CT/NG assay should beinterpreted in conjunction with other laboratory andclinical data available to the clinician.Xpert CT/NG performance has not been evaluated in patientsless than 14 years of age. The assay should not be used forthe evaluationof suspected sexual abuse or for other medico-legalindications. Additional testing is recommended in anycircumstance when false positive or false negative resultscould lead to adverse medical, social or psychologicalconsequences. NG PCR NOT DETECTED Not Detect. [facility] Comment:A not detected test result does not exclude the possibilityof infection because test results can be affected byimproper specimen collection, concurrent antibiotic therapy,or the number of organisms in the specimen which may bebelow the sensitivity of the test. As with many diagnostictests, results from the Xpert CT/NG assay should beinterpreted in conjunction with other laboratory andclinical data available to the clinician.Xpert CT/NG performance has not been evaluated in patientsless than 14 years of age. The assay should not be used forthe evaluationof suspected sexual abuse or for other medico-legalindications. Additional testing is recommended in anycircumstance when false positive or false negative resultscould lead to adverse medical, social or psychologicalconsequences. 01/14/2025 8:37 AM EST 01/14/2025 3:13 PM EST Narrative [facility] - 01/14/2025 6:19 PM EST Vaginal us Generic External Data Provider LAB MICROBIOLOGY - GENERAL ORDERABLES Final Result Performing Organization Address City/State/[facility] Co de Phone Number [facility] [address] [place] [phone] documented in this encounter Visit Diagnoses Not on filedocumented in this encounter Additional Health Concerns Assessment Noted Time PHQ-9 Depression Total Score: 8 09/03/20 24 12:43 PM EDT documented as of this encounter Care Teams Smoke Jumper Relationship Specialty Start Date End Date Aundrea Starks ANP [address] [place] [address] PCP - General Family Medicine 07/06/21 documented as of this encounter
--- OUTSIDE RECORDS SUMMARY | 2025-01-16 15:32 | XMS_ITS | Clinical Summary ---
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); Dysplasia of cervix, low grade (AWA 1) 01/13/[address] [address] Aundrea Starks ANP Medication Question 01/13/2025 Travel 01/06/[address] [address] Aundrea Starks ANP Appointment Request 12/19/2024 Patient Outreach [address] [address] Aundrea Starks ANP Pre-visit Planning (SDOH Screening negative and Tobacco screening negative) 11/18/[address] [address] Aundrea Starks ANP 11/04/[address] [phone] Shazia Leach [place] December recall from Last [...] Description 02/11/2025 11:00 AM EDT Office Visit [facility] [address] [place] [address] Aundrea Starks ANP [address] [place], [place] [phone] Health Maintenance Due Date Last Done Comments [...] TMA, UROGENITAL Routine 01/14/2025 8:37 AM EST COLPOSCOPY Routine 10/03/2024 12:00 AM [...] Blood Count 10.9(H) 4.8 - 10.8 X10*3/uL [facility] Red Blood Count 5.43 4.20 - 5.50 X10*6/uL [facility] Hemoglobin 12.0 12.0 - 16.0 g/dl [facility] Hematocrit 40.0 37.0 - 47.0 % [facility] Mean Corpuscular Volume 73.7(L) 80.0 - 98.0 fL [facility] Mean Corpuscular Hemoglobin 22.1(L) 27.0 - 33.0 pg [facility] Mean Corpuscular HGB Conc 30.0(L) 31.0 - 35.0 g/dl [facility] Red Cell Distribution Width 17.9(H) 11.0 - 16.0 % [facility] Platelet Count 418(H) 160 - 400 X10*3/uL [facility] Mean Platelet Volume 9.7 9.4 - 12.3 fL [facility] NRBC Pct Auto 0.0 0.0 - 0.2 /100WBC [facility] NRBC Abs Auto 0.000 0.0 - 0.012 X10*3/uL [facility] 01/14/2025 10:3 6 AM EST 01/14/2025 10:36 AM EST us Generic External Data Provider LAB BLOOD ORDERAB LES Final Result [facility] [address] [place] [address] [phone] * Chlamydia/N. Gonorrhoeae RNA, TMA, Urogenitial (01/14/2025 8:37 AM EST) CT PCR NOT DETECTED Not Detect. [facility] Comment:A not detected test result [...] psychologicalconsequences. NG PCR NOT DETECTED Not Detect. [facility] Comment:A not detected test result [...] AM EST 01/14/2025 3:13 PM EST Narrative [facility] - 01/14/2025 6:19 PM EST Vaginal us Generic External Data Provider LAB MICROBIOLOGY - GENERAL ORDERABLES Final Result [facility] [address] [place] [phone] * Colposcopy (10/03/2024 12:00 AM EST) us Historical Provider MD IN CLINIC/BEDSIDE ORDERAB LES Final Result EXTERNAL LAB * (ABNORMAL) Pap Smear (09/02/2024 2:35 PM EDT) SOURCE: SEE [facility] Comment:Cervix Report Status: [facility] Clinical Information: SEE NOTE [facility] Comment:None given LMP: SEE NOTE [facility] Comment:NONE GIVEN Prev. PAP: SEE NOTE [facility] Comment:NONE GIVEN Prev. BX: SEE NOTE [facility] Comment:NONE GIVEN Statement Of Adequacy: SEE NOTE [facility] Comment:Satisfactory for dinora luation.Endocervical/transformation zone componentpresent. General Categorization: SEE NOTE(A) [facility] Comment:Cytology Results: Ep ithelial Cell Abnormality Interpretation/Resul t: SEE NOTE(A) [facility] Comment:Low Grade Squamous I ntraepithelial Lesion, (LSIL),a more advanced lesion may be present Cytology Comment SEE NOTE [facility] Comment:This Pap test has be en evaluated with computerassisted technology. Diesel Pile Hammer Operator: SEE NOTE [facility] Comment:MRS, CT(ASCP)CT scre ening location: [employer] [address] [address]Jwxvz preparation performed at: [employer], [address] [place] [address] CLIA No. [id number] Review Diesel Pile Hammer Operator: [facility] Pathologist SEE NOTE [facility] Comment:Sharif López M.D., Ph .D.,Board Certified in Anatomic and Clinical Pathologyand Cytopathology(electronic signature)Consulting [address] [phone] PAP Infection [facility] See Note SEE [facility] Comment:EXPLANATORY NOTE:The Pap is a screening test for cervical cancer. It isnot a diagnostic test and is subject to false negativeand false positive results. It is most reliable when asatisfactory sample, regularly obtained, is submittedwith relevant clinical findings and history, and whenthe Pap result is evaluated along with historic andcurrent clinical information.THIS TEST WAS PERFORMED AT:[facility],BIOTECH-3 ANATOMIC PATHOLOGY1 [place] [address]OTQARALIS COHEN MD Pap Vial Vaginal structure / Unknown 09/02/2024 2:35 PM EDT 09/02/2024 5:28 PM EDT Narrative [facility] - 09/09/2024 3:16 PM EDT SEE SCANNED RESULTS IN EMR us Flavia Cancino [facility] PATHOLOGY ORDERABLES Final Result Performing Organization Address City/[facility]/ZIP Co de Phone Number [facility] [address] [place] [phone] * Hepatitis C Antibody with Reflex to HCV, RNA, Quantitative, Real-Time PCR (08/28/2024 12:10 PM EDT) Hepatitis C Antibody Nonreactive Nonreactive [facility] Comment:Antibodies to HCV no t detected; does not exclude early acuteHCV infection. Blood Venous blood specimen / Unknown 08/28/2024 12:10 PM EDT 08/28/2024 1:16 PM EDT us Aundrea MOULTON LAB BLOOD ORDERABLES Final Resul t Performing Organization Address City/[facility]/ZIP Co de Phone Number [facility] [address] [place] [phone] * HIV-1/2 Antigen and Antibodies, Fourth Generation, with Reflexes (08/28/2024 12:10 PM EDT) HIV AB/AG Nonreactive Nonreactive [facility] Comment:HIV-1 p24 Ag and/or HIV-1/HIV-2 Ab not detected.A test result that is nonreactive does not exclude thepossibility of exposure to or infection with HIV-1 and/orHIV-2. Nonreactive results in this assay for individualswith prior exposure to HIV-1 and/or HIV-2 may be due toantigen and antibody levels that are below the limit ofdetection of this assay.The [employer] HIV Ag/Ab Combo assay result andsupplemental assay results should be interpreted inconjunction with the patient's clinical presentation,history and other laboratory results. If the results areinconsistent with clinical evidence, additional testing issuggested to confirm the result. Blood Venous blood specimen / Unknown 08/28/2024 12:10 PM EDT 08/28/2024 1:16 PM EDT Aundrea Starks [facility] LAB BLOOD ORDERABLES Final Resul t [facility] [address] [place] [phone] * (ABNORMAL) Lipid Panel, Standard (08/28/2024 12:10 PM EDT) Triglycerides 87 <150 mg/dL [facility] Comment:Desirable Triglyceri de: less than 150 mg/dLBorderline High Triglyceride 150-199 mg/dLHigh Triglyceride: 200-499 mg/dLVery High Triglyceride: greater than or equal to 5OO mg/dL Cholesterol 151 <200 mg/dL [facility] Comment:Desirable Cholestero l: less than 200 mg/dLBorderline High Cholesterol: 200-239 mg/dLHigh Cholesterol: greater than 239 mg/dL LDL Cholesterol Calculated 102(H) <100 mg/dL [facility] Comment:Desirable LDL: less than 100 mg/dLNear Optimal/Above Optimal LDL: 110- 129 mg/dLBorderline High LDL: 130-159 mg/dLHigh LDL: 160-189 mg/dLVery High LDL: greater than or equal to 190 mg/dL HDL Cholesterol 32(L) >40 mg/dL [facility] Comment:Desirable HDL: great er than 40 mg/dL Note: This HDL assay may give artificially low results in patients with liver disease. Blood Venous blood specimen / Unknown 08/28/2024 12:10 PM EDT 08/28/2024 1:16 PM EDT us Aundrea MOULTON LAB BLOOD ORDERABLES Final Resul t [facility] [address] [place] [address] [phone] from Last 3 Months or Most Recently Relevant to Health Maintenance Insurance [facility] [employer] [facility] Care Teams Qa Tech Relationship Specialty Start Date End Date Aundrea Starks ANP [address] [place] [address] PCP - General Family Medicine 07/06/21
--- OUTSIDE RECORDS SUMMARY | 2025-01-16 15:32 | XMS_ITS | Encounter Summary ---
Author Organization [employer] Address 75 [facility] 7t [place] [address] Care Team Providers Care Special Education Inclusion Teacher Name Role Phone Aundrea Starks Primary Care Provider [phone] Reason for Visit * Reason Comments Med Refill Encounter Details Date Type Department Care Team ([facility] Contact Info) Description 08/25/2023 Refill [facility] [address] [place], [place] [phone] Aundrea Starks ANP [address] [place] [address] Anxiety Social History Tobacco Use Types Packs/Day [...] EDT Office Visit [facility] [address] [place] [address] Aundrea Starks ANP [address] [place] [address] documented as of this encounter Visit Diagnoses Diagnosis Anxiety Anxiety state, unspecified documented in this encounter Care Teams Special Education Inclusion Teacher Relationship Specialty Start Date End Date Aundrea Starks ANP [address] [place] [phone] PCP - General Family Medicine 07/06/21 documented as of this encounter
--- OUTSIDE RECORDS SUMMARY | 2025-01-16 15:32 | XMS_ITS | Patient Health Record ---
Author Organization [facility] Address [address] [place] [address] Care Team Providers Care Air Defense Specialist Name Role Phone ELZBIETA BELL N.P. Primary Care Provider Raymond Levy Jr Unavailable Allergies Allergen (clinical drug ingredient) Drug/Non Drug Allergy documented on EMR Reaction Allergy Type Onset Date Status Penicillin Unknown Drug Allergy Active dairy (uncoded) Unknown Allergy Acti ve Reason For Referral No Information Medications Medication SIG (Take, Route, Frequency, Duration) Notes [...] BEFORE A MEAL Oral for 30 Active Immunizations Vaccine Route Administration Date Status Comme nts Influenza Unknown 07/14/2021 Administered Social History Tobacco Use: Social History Observation Description Date Details (start date - stop date) Never Smoker NA - NA Tobacco Use/Smoking Question Answer Notes Patient is [...] Never (0 point) Points 0 Interpretation Negative Problems Problem Type SNOMED Code ICD Code Onset Dates Problem Status W/U Status Risk Notes Problem 07870031 Irritable bowel syndrome with both constipation and diarrhea (K58.2) Active confirmed Problem 354256134 Gastroesophageal reflux disease with esophagitis without hemorrhage (K21.00) Active confirmed Plan Of Treatment No Information Insurance Providers Payer Name Payer Address Payer Phone Subscriber Number Group Number Insured Name Patient Relationship to Insured Coverage Start Date Coverage End Date MEDICAID OF [employer] [address] [place] [id number] IZABELA PERALTA Self - patient is the insured Medical (General) History Medical History History ICD Code Denies CO,DM,CVA,Lung disease,renal dise ase hypertension Surgical History Surgery Date(Month/Year)
== END 2025-01-16 12:54 | disposition home or self-care (01) ==
LOC: HO.US 12:53
PROVIDERS: PCP Nurse Practitioner Primary Care; Visit Provider Obstetrics & Gynecology
DX: N93.9 Abnormal uterine and vaginal bleeding, unspecified (principal)
CPT/HCPCS: 76830; 76856

== ENCOUNTER → 2025-01-16 12:54 | Outpatient (BNV) | payer OTHER, SELFPAY | PROVIDERS: PCP Nurse Practitioner Primary Care; Visit Provider Radiology Diagnostic Radiology | DX: R93.9 Diagnostic imaging inconclusive due to excess body fat of patient (principal) | CPT/HCPCS: 76830; 76856 ==

== ENCOUNTER 2025-01-17 07:58 | Outpatient (AMB) | payer OTHER, SELFPAY ==
--- OUTSIDE RECORDS SUMMARY | 2025-01-17 08:03 | XMS_ITS | Clinical Summary ---
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); Dysplasia of cervix, low grade (AWA 1) 01/13/[address] [address] Aundrea Starks ANP Medication Question 01/13/2025 Travel 01/06/[address] [address] Aundrea Starks ANP Appointment Request 12/19/2024 Patient Outreach [address] [address] Aundrea Starks ANP Pre-visit Planning (SDOH Screening negative and Tobacco screening negative) 11/18/[address] [address] Aundrea Starks ANP 11/04/[address] [phone] Shazia Leach [place] December recall from Last [...] Description 02/11/2025 11:00 AM EDT Office Visit [facility] [address] [place] [address] Aundrea Starks ANP [address] [place], [place] [phone] Health Maintenance Due Date Last Done Comments [...] Blood Count 10.9(H) 4.8 - 10.8 X10*3/uL [facility] Red Blood Count 5.43 4.20 - 5.50 X10*6/uL [facility] Hemoglobin 12.0 12.0 - 16.0 g/dl [facility] Hematocrit 40.0 37.0 - 47.0 % [facility] Mean Corpuscular Volume 73.7(L) 80.0 - 98.0 fL [facility] Mean Corpuscular Hemoglobin 22.1(L) 27.0 - 33.0 pg [facility] Mean Corpuscular HGB Conc 30.0(L) 31.0 - 35.0 g/dl [facility] Red Cell Distribution Width 17.9(H) 11.0 - 16.0 % [facility] Platelet Count 418(H) 160 - 400 X10*3/uL [facility] Mean Platelet Volume 9.7 9.4 - 12.3 fL [facility] NRBC Pct Auto 0.0 0.0 - 0.2 /100WBC [facility] NRBC Abs Auto 0.000 0.0 - 0.012 X10*3/uL [facility] 01/14/2025 10:3 6 AM EST 01/14/2025 10:36 AM EST us Generic External Data Provider LAB BLOOD ORDERAB LES Final Result [facility] [address] [place] [phone] * Chlamydia/N. Gonorrhoeae RNA, TMA, Urogenitial (01/14/2025 8:37 AM EST) CT PCR NOT DETECTED Not Detect. [facility] Comment:A not detected test result does [...] psychologicalconsequences. NG PCR NOT DETECTED Not Detect. [facility] Comment:A not detected test result does [...] AM EST 01/14/2025 3:13 PM EST Narrative [facility] - 01/14/2025 6:19 PM EST Vaginal us Generic External Data Provider LAB MICROBIOLOGY - GENERAL ORDERABLES Final Result [facility] [address] [place] [phone] * Colposcopy (10/03/2024 12:00 AM EST) us Historical Provider MD IN CLINIC/BEDSIDE ORDERAB LES Final Result EXTERNAL LAB * (ABNORMAL) Pap Smear (09/02/2024 2:35 PM EDT) SOURCE: SEE [facility] Comment:Cervix Report Status: [facility] Clinical Information: SEE NOTE [facility] Comment:None given LMP: SEE NOTE [facility] Comment:NONE GIVEN Prev. PAP: SEE NOTE [facility] Comment:NONE GIVEN Prev. BX: SEE NOTE [facility] Comment:NONE GIVEN Statement Of Adequacy: SEE NOTE [facility] Comment:Satisfactory for dinora luation.Endocervical/transformation zone componentpresent. General Categorization: SEE NOTE(A) [facility] Comment:Cytology Results: Ep ithelial Cell Abnormality Interpretation/Resul t: SEE NOTE(A) [facility] Comment:Low Grade Squamous I ntraepithelial Lesion, (LSIL),a more advanced lesion may be present Cytology Comment SEE NOTE [facility] Comment:This Pap test has be en evaluated with computerassisted technology. Web Services Professional: SEE NOTE [facility] Comment:MRS, CT(ASCP)CT scre ening location: [email or web address] [address] [address]Pbybd preparation performed at: [employer], [address] [place] [address] CLIA No. [id number] Review Web Services Professional: [facility] Pathologist SEE NOTE [facility] Comment:Sharif López M.D., Ph .D.,Board Certified in Anatomic and Clinical Pathologyand Cytopathology(electronic signature)Consulting [address] [phone] PAP Infection [facility] See Note SEE [facility] Comment:EXPLANATORY NOTE:The Pap is a screening test for cervical cancer. It isnot a diagnostic test and is subject to false negativeand false positive results. It is most reliable when asatisfactory sample, regularly obtained, is submittedwith relevant clinical findings and history, and whenthe Pap result is evaluated along with historic andcurrent clinical information.THIS TEST WAS PERFORMED AT:[facility]OTE[facility]-3 ANATOMIC PATHOLOGY1 [place] [address]XXFRQALIS COHEN MD Pap Vial Vaginal structure / Unknown 09/02/2024 2:35 PM EDT 09/02/2024 5:28 PM EDT Narrative [facility] - 09/09/2024 3:16 PM EDT SEE SCANNED RESULTS IN EMR us Flavia Cancino [facility] PATHOLOGY ORDERABLES Final Result Performing Organization Address City/[facility]/ZIP Co de Phone Number [facility] [address] [place] [phone] * Hepatitis C Antibody with Reflex to HCV, RNA, Quantitative, Real-Time PCR (08/28/2024 12:10 PM EDT) Hepatitis C Antibody Nonreactive Nonreactive [facility] Comment:Antibodies to HCV no t detected; does not exclude early acuteHCV infection. Blood Venous blood specimen / Unknown 08/28/2024 12:10 PM EDT 08/28/2024 1:16 PM EDT us Aundrea MOULTON LAB BLOOD ORDERABLES Final Resul t Performing Organization Address City/[facility]/ZIP Co de Phone Number [facility] [address] [place] [phone] * HIV-1/2 Antigen and Antibodies, Fourth Generation, with Reflexes (08/28/2024 12:10 PM EDT) HIV AB/AG Nonreactive Nonreactive [facility] Comment:HIV-1 p24 Ag and/or HIV-1/HIV-2 Ab not detected.A test result that is nonreactive does not exclude thepossibility of exposure to or infection with HIV-1 and/orHIV-2. Nonreactive results in this assay for individualswith prior exposure to HIV-1 and/or HIV-2 may be due toantigen and antibody levels that are below the limit ofdetection of this assay.The [email or web address] HIV Ag/Ab Combo assay result andsupplemental assay results should be interpreted inconjunction with the patient's clinical presentation,history and other laboratory results. If the results areinconsistent with clinical evidence, additional testing issuggested to confirm the result. Blood Venous blood specimen / Unknown 08/28/2024 12:10 PM EDT 08/28/2024 1:16 PM EDT Aundrea Starks [facility] BLOOD ORDERABLES Final Resul t [facility] [address] [place] [phone] * (ABNORMAL) Lipid Panel, Standard (08/28/2024 12:10 PM EDT) Triglycerides 87 <150 mg/dL [facility] Comment:Desirable Triglyceri de: less than 150 mg/dLBorderline High Triglyceride 150-199 mg/dLHigh Triglyceride: 200-499 mg/dLVery High Triglyceride: greater than or equal to 5OO mg/dL Cholesterol 151 <200 mg/dL [facility] Comment:Desirable Cholestero l: less than 200 mg/dLBorderline High Cholesterol: 200-239 mg/dLHigh Cholesterol: greater than 239 mg/dL LDL Cholesterol Calculated 102(H) <100 mg/dL [facility] Comment:Desirable LDL: less than 100 mg/dLNear Optimal/Above Optimal LDL: 110- 129 mg/dLBorderline High LDL: 130-159 mg/dLHigh LDL: 160-189 mg/dLVery High LDL: greater than or equal to 190 mg/dL HDL Cholesterol 32(L) >40 mg/dL [facility] Comment:Desirable HDL: great er than 40 mg/dL Note: This HDL assay may give artificially low results in patients with liver disease. Blood Venous blood specimen / Unknown 08/28/2024 12:10 PM EDT 08/28/2024 1:16 PM EDT us Aundrea MOULTON LAB BLOOD ORDERABLES Final Resul t [facility] [address] [place] [phone] [phone] from Last 3 Months or Most Recently Relevant to Health Maintenance Insurance [facility] [email or web address] [facility] Care Teams Construction Supervisor/Carpenter Relationship Specialty Start Date End Date Aundrea Starks ANP [address] [place] [address] PCP - General Family Medicine 07/06/21
--- OUTSIDE RECORDS SUMMARY | 2025-01-17 08:03 | XMS_ITS | Encounter Summary ---
Author Organization [employer] Address [address] [facility] [address] 7t [place] [address] Care Team Providers Care Fur Finisher Tailor Name Role Phone Aundrea Starks Primary Care Provider Encounter Details Date Type Department Care Team ([facility] st Contact Info) Description 11/18/2024 Telephone [facility] [address] [place] [address] Aundrea Starks ANP [address] [place] [address] Social History Tobacco Use Types Packs/Day Years [...] Description 02/11/2025 11:00 AM EDT Office Visit [facility] [address] [place] [phone] Aundrea Starks ANP [address] [place] [address] documented as of this encounter Visit Diagnoses Not on filedocumented in this encounter Additional Health Concerns Assessment Noted Time PHQ-9 Depression Total Score: 8 09/03/20 24 12:43 PM EDT documented as of this encounter Care Teams Fur Finisher Tailor Relationship Specialty Start Date End Date Aundrea Starks ANP [address] [place] [phone] PCP - General Family Medicine 07/06/21 documented as of this encounter
--- OUTSIDE RECORDS SUMMARY | 2025-01-17 08:03 | XMS_ITS | Encounter Summary ---
Author Organization [email or web address] Address [address] [place] [address] Care Team Providers Care Gridcap Machine Operator Name Role Phone Aundrea Starks Primary Care Provider [phone] Encounter Details Date Type Department Care Team [...] Description 02/11/2025 11:00 AM EDT Office Visit [facility] [address] [place] [address] Aundrea Starks, ANP [address] [place] [address] documented as of this encounter Procedures Procedure Name Priority Date/Time Associated Diagnosis Comments CBC Routine 01/14/2025 10:36 AM EST CHLAMYDIA/N. GONORRHOEAE RNA, TMA, UROGENITAL Routine 01/14/2025 8:37 AM EST documented in this encounter Results * (ABNORMAL) CBC (01/14/2025 10:36 AM EST) White Blood Count 10.9(H) 4.8 - 10.8 X10*3/uL [facility] Red Blood Count 5.43 4.20 - 5.50 X10*6/uL [facility] Hemoglobin 12.0 12.0 - 16.0 g/dl [facility] Hematocrit 40.0 37.0 - 47.0 % [facility] Mean Corpuscular Volume 73.7(L) 80.0 - 98.0 fL [facility] Mean Corpuscular Hemoglobin 22.1(L) 27.0 - 33.0 pg [facility] Mean Corpuscular HGB Conc 30.0(L) 31.0 - 35.0 g/dl [facility] Red Cell Distribution Width 17.9(H) 11.0 - 16.0 % [facility] Platelet Count 418(H) 160 - 400 X10*3/uL [facility] Mean Platelet Volume 9.7 9.4 - 12.3 fL [facility] NRBC Pct Auto 0.0 0.0 - 0.2 /100WBC [facility] NRBC Abs Auto 0.000 0.0 - 0.012 X10*3/uL [facility] 01/14/2025 10:3 6 AM EST 01/14/2025 10:36 AM EST us Generic External Data Provider LAB BLOOD ORDERAB LES Final Result [facility] [address] [place] [address] [phone] * Chlamydia/N. Gonorrhoeae RNA, TMA, Urogenitial (01/14/2025 8:37 AM EST) CT PCR NOT DETECTED Not Detect. [facility] Comment:A not detected test result does [...] psychologicalconsequences. NG PCR NOT DETECTED Not Detect. [facility] Comment:A not detected test result does [...] AM EST 01/14/2025 3:13 PM EST Narrative [facility] - 01/14/2025 6:19 PM EST Vaginal us Generic External Data Provider LAB MICROBIOLOGY - GENERAL ORDERABLES Final Result Performing Organization Address City/State/[facility] Co de Phone Number [facility] [address] [place] [phone] documented in this encounter Visit Diagnoses Not on filedocumented in this encounter Additional Health Concerns Assessment Noted Time PHQ-9 Depression Total Score: 8 09/03/20 24 12:43 PM EDT documented as of this encounter Care Teams Gridcap Machine Operator Relationship Specialty Start Date End Date Aundrea Starks ANP [address] [place] [phone] PCP - General Family Medicine 07/06/21 documented as of this encounter
--- OUTSIDE RECORDS SUMMARY | 2025-01-17 08:03 | XMS_ITS | Encounter Summary ---
Author Organization [employer] Address [address] [facility] [address] [place] [address] Care Team Providers Care Provider Network Mgr Name Role Phone Aundrea Starks Primary Care Provider [phone] Reason for Visit * Reason Onset Date Comments Appointment Request 01/06/2025 Encounter Details Date Type Department Care Team ([facility] Contact Info) Description 01/06/2025 Telephone [facility] MED[facility]INE [address] [place] [address] Aundrea Starks ANP [address] [place] [address] Appointment Request Social History Tobacco Use Types [...] about the same as the first time. Manufacturer'S Service Representative advised pt of the Upcoming Apt on 01/16/25 and she was wondering if there was anything earlier. Contact pt at [phone] documented in this encounter Plan of Treatment Upcoming Encounters Date Type Department Care Team (Late st Contact Info) Description 02/11/2025 11:00 AM EDT Office Visit [facility] MED[facility]INE [address] [place] [address] Aundrea Starks ANP [address] [place] [address] documented as of this encounter Visit Diagnoses Not on filedocumented in this encounter Additional Health Concerns Assessment Noted Time PHQ-9 Depression Total Score: 8 09/03/20 24 12:43 PM EDT documented as of this encounter Care Teams Provider Network Mgr Relationship Specialty Start Date End Date Aundrea Starks ANP [address] [place] [phone] PCP - General Family Medicine 07/06/21 documented as of this encounter
--- OUTSIDE RECORDS SUMMARY | 2025-01-17 08:03 | XMS_ITS | Encounter Summary ---
Author Organization [employer] [facility] Address [address] [place] [address] 7t [place] [address] Care Team Providers Care Sample Display Preparer Name Role Phone Aundrea Starks Primary Care Provider [phone] Encounter Details Date Type Department Care Team (Latest Contact Info) Description 03/16/2022 Abstract [facility] CONVERSIONS Dental, Provider, DDS Social History Tobacco [...] [facility] [address] [place] [address] Aundrea Starks ANP [address] [place] [address] documented as of this encounter Visit Diagnoses Not on filedocumented in this encounter Care Teams Sample Display Preparer Relationship Specialty Start Date End Date Aundrea Starks ANP [address] [place] [address] PCP - General Family Medicine 07/06/21 documented as of this encounter
--- OUTSIDE RECORDS SUMMARY | 2025-01-17 08:03 | XMS_ITS | Encounter Summary ---
Author Organization [employer] Address [address] [facility] 7t [place] [address] Care Team Providers Care Equity Director Name Role Phone Aundrea Starks Primary Care Provider [phone] Reason for Visit * Reason Comments Pre-visit Planning SDOH Screening negat wendy and Tobacco screening negative Encounter Details Date Type Department Care Team ([facility] st Contact Info) Description 12/19/2024 Patient Outreach [facility] MEDICINE [address] [place] [address] Aundrea Starks ANP [address] [place] [address] Pre-visit Planning (SDOH Screening negative and Tobacco [...] Description 02/11/2025 11:00 AM EDT Office Visit [facility] [address] [place] [address] Aundrea Starks ANP [address] [place] [address] documented as of this encounter Visit Diagnoses Not on filedocumented in this encounter Additional Health Concerns Assessment Noted Time PHQ-9 Depression Total Score: 8 09/03/20 24 12:43 PM EDT documented as of this encounter Care Teams Equity Director Relationship Specialty Start Date End Date Aundrea Starks ANP [address] [place] [address] PCP - General Family Medicine 07/06/21 documented as of this encounter
--- OUTSIDE RECORDS SUMMARY | 2025-01-17 08:03 | XMS_ITS | Patient Health Record ---
Author Organization [facility] Address [address] [place] [address] Care Team Providers Care Licensed Insurance Agent Name Role Phone ELZBIETA BELL N.P. 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) Active confirmed Problem [id number] Gastroesophageal reflux disease with esophagitis without hemorrhage (K21.00) Active confirmed Plan Of Treatment No Information Insurance Providers Payer Name Payer Address Payer Phone Subscriber Number Group Number Insured Name Patient Relationship to Insured Coverage Start Date Coverage End Date MEDICAID OF [place] [address] [place] [id number] IZABELA PERALTA Self - patient is the insured Medical (General) History Medical History History ICD Code Denies PR,DM,CVA,Lung disease,renal dise ase hypertension Surgical History Surgery Date(Month/Year)
--- OUTSIDE RECORDS SUMMARY | 2025-01-17 08:03 | XMS_ITS | Encounter Summary ---
Author Organization [employer] Address [address] [facility] 7t [place] [address] Care Team Providers Care Sea Air Land Officer Name Role Phone Aundrea Starks KENNEY Primary Care Provider [phone] Reason for Visit * Reason Comments Med Refill Encounter Details Date Type Department Care Team ([facility] Contact Info) Description 09/27/[address] [facility] MEDICINE [address] [place] [address] Flavia Cancino CNM [address] [place] [address] Social History Tobacco Use Types Packs/Day Years [...] [facility] [address] [place] [address] Aundrea Starks ANP [address] [place] [address] documented as of this encounter Visit Diagnoses Not on filedocumented in this encounter Additional Health Concerns Assessment Noted Time PHQ-9 Depression Total Score: 8 09/03/20 24 12:43 PM EDT documented as of this encounter Care Teams Sea Air Land Officer Relationship Specialty Start Date End Date Aundrea Starks ANP [address] [place] [address] PCP - General Family Medicine 07/06/21 documented as of this encounter
--- OUTSIDE RECORDS SUMMARY | 2025-01-17 08:03 | XMS_ITS | Encounter Summary ---
Author Organization [employer] Address [address] [facility] 7t [place] [address] Care Team Providers Care Turkey Cleaner Name Role Phone Elzbieta Bell Primary Care Provider [phone] Reason for Visit * Reason Onset Date Comments Medication Question 01/13/2025 Encounter Details Date Type Department Care Team ([facility] Contact Info) Description 01/13/2025 Telephone [facility] MEDICINE [address] [place], [place] [phone] Elzbieta Bell ANP [address] [place] [address] Medication Question Social History Tobacco Use Types [...] walked into Green Team senior front end engineer stating the her Prozac prescription needs a prior authorization. Called [facility] pharmacy, pt was due for refill (on file) for mid November. Pharmacy states medication as written does need a prior authorization, no detail given to pharmacy, however per [facility] stadd if dummy script run with daily capsules (not tablets), the copay is about $2 and no PA required. Will send message to PCP to advise. documented in this encounter Plan of Treatment Upcoming Encounters Date Type Department Care Team (Late st Contact Info) Description 02/11/2025 11:00 AM EDT Office Visit [facility] MEDICINE [address] [place] [address] Elzbieta Bell ANP [address] [place] [address] documented as of this encounter Visit Diagnoses Diagnosis Anxiety Anxiety state, unspecified documented in this encounter Additional Health Concerns Assessment Noted Time PHQ-9 Depression Total Score: 8 09/03/20 24 12:43 PM EDT documented as of this encounter Care Teams Turkey Cleaner Relationship Specialty Start Date End Date Elzbieta Bell ANP [address] [place] [address] PCP - General Family Medicine 07/06/21 documented as of this encounter
--- OUTSIDE RECORDS SUMMARY | 2025-01-17 08:03 | XMS_ITS | Encounter Summary ---
Author Organization [employer] Address [address] [facility] 7t [place] [address] Care Team Providers Care Gold Letterer Name Role Phone Aundrea Starks Primary Care Provider [phone] Reason for Visit * Reason Comments Med Refill Encounter Details Date Type Department Care Team ([facility] Contact Info) Description 08/25/2023 Refill [facility] MEDICINE [address] [place], [place] [phone] Aundrea Starks ANP [address] [place] [address] Anxiety Social History Tobacco Use Types Packs/Day [...] Office Visit [facility] MEDICINE [address] [place] [address] Aundrea Starks ANP [address] [place] [address] documented as of this encounter Visit Diagnoses Diagnosis Anxiety Anxiety state, unspecified documented in this encounter Care Teams Gold Letterer Relationship Specialty Start Date End Date Aundrea Starks ANP [address] [place] [address] PCP - General Family Medicine 07/06/21 documented as of this encounter
--- OUTSIDE RECORDS SUMMARY | 2025-01-17 08:03 | XMS_ITS | Encounter Summary ---
Author Organization [employer] Address [address] [facility] [facility] [address] 7[address] [place] [address] Care Team Providers Care Commercial Lines Account Manager Name Role Phone Aundrea Starks Primary Care Provider [phone] Encounter Details Date Type Department Care Team [...] Description 02/11/2025 11:00 AM EDT Office Visit [facility] MEDICINE [address] [place] [address] Aundrea Starks ANP 230 [place] [address] documented as of this encounter Visit Diagnoses Not on filedocumented in this encounter Additional Health Concerns Assessment Noted Time PHQ-9 Depression Total Score: 8 09/03/20 24 12:43 PM EDT documented as of this encounter Care Teams Commercial Lines Account Manager Relationship Specialty Start Date End Date Aundrea Starks ANP [address] [place] [address] PCP - General Family Medicine 07/06/21 documented as of this encounter
--- OUTSIDE RECORDS SUMMARY | 2025-01-17 08:03 | XMS_ITS | Clinical Summary ---
Author Organization [facility] Address [phone] [place] [phone] Care Team Providers Care Sheeter Machine Operator Name Role Phone Unavailable Primary Care Provider [...]
--- OUTSIDE RECORDS SUMMARY | 2025-01-17 08:03 | XMS_ITS | Encounter Summary ---
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 female who presents for [employer] visit Here with mother. LSIL r/o HSIL pap 08/2024, referred for colposcopy. Has appt at [facility] 01/14 at 8:45. She actually had colpo in [facility] 09/2024, which showed CIN1. Also had pelvic ultrasound and Endometrial biopsy which showed simple endometrial hyperplasia without atypia. She was treated with IM then oral Provera. Finished Provera last month and had menses after that. Planning to go backto [facility] soon. Taking , would like [...] Description 02/11/2025 11:00 AM EDT Office Visit [facility] MED[facility]INE [address] [place], [place] [phone] Aundrea Starks ANP [address] [place] [address] documented as of this encounter Procedures Procedure [...] documented as of this encounter Care Teams Adult Caregiver Relationship Specialty Start Date End Date Aundrea Starks ANP [address] [place] [address] PCP - General Family Medicine 07/06/21 documented as of this encounter
--- NOTE | 2025-01-17 08:53 | MHC.OFFVISWM ---
VS Expanded 01/17/25 09:04 Height 5 ft 6 in Weight 365 lb 6 oz BMI 59.0 Body Fat % 50.6 Body Fat Mass 185 Fat Free Mass 180.6 Visceral Fat Rating 19 Body Water % 35.5 Body Water Mass 129.8 Basal Metabolic Rate/Score 2,695 Intake Visit Reasons: [employer] BMI 58.9 Allergies Penicillins Allergy (Verified 01/17/25 08:54) Unknown Medication List - Last Reconciled 01/17/25 by Petr August MD amlodipine mg PO DAILY blood pressure test kit-large As directed cholecalciferol (vitamin D3) 1 tab PO DAILY fluoxetine 10 mg PO DAILY folic acid 0.8 mg PO DAILY omeprazole 20 mg PO BID HPI HPI [employer] BMI 58.9: Details: Start time: 8.50am, End time: 9.36am ?I spent 41 minutes speaking with the patient on the phone plus an additional 5 minutes reviewing and updating records for a total of 46 minutes HPI Comments Details: Previous weight loss efforts: low carb diet, self diets Wakes up: 10am, Sleeps: 11.30pm Breakfast: skips Lunch:1pm (rice, meat. vegetables) Dinner: 7pm (grilled cheese sandwich, egg salad) Snacks: 12pm (bread, crackers, yogurt), 4pm (same), 10pm (chocolate) Exercise: Has home stepper, does not track calories Fluids: Coffee: none, tea: none, soda: rarely, juice: (orange juice: 4/wk), ETOH: 1/month PFSH Medical History (Updated 01/17/25 @ 08:56 by Petr August MD) Hypertension Anxiety Depression Morbid obesity LGSIL on Pap smear of cervix GERD (gastroesophageal reflux disease) No known health problems Family History (Updated 01/13/25 @ 08:21 by BUBBA Rueda) Mother Diabetes Sleep apnea Maternal Grandfather Diabetes Sister Diabetes Paternal Grandmother HTN (hypertension) Paternal Aunt HTN (hypertension) Social History Alcohol intake: never Patient Tobacco Use Status: Never used Tobacco Female Reproductive History Menstrual Age of Menarche: 16 Telehealth Telehealth Telehealth Platform: Telephone Location of provider rendering services: practice address Location of patient: address on file Patient Identification confirmed using: Name, : Yes Telehealth method: voice only Patient verbally consented to treatment: Yes Patient verbally consented to billing insurance company: Yes Patient informed of any privacy concerns related to visit: Yes Minutes spent on Phone/Video with Pt.: 46 Assessment & Plan Assessment & Plan (1) Morbid obesity: Code(s): E66.01 - Morbid (severe) obesity due to excess calories Category: Medical Plan: 1.? Plan for lap sleeve gastrectomy. If diaphragmatic or ventral hernias are present at time of surgery, these will be repaired laparoscopically as well. I emphasized the importance of close follow-up, adherence to instructions and good communication. The surgery does not replace the need to change your lifestlyle which is the cause of the obesity problem. The surgery provides the motivation to try again to change your lifestyle, it reduces the appetite and make the transition to a better lifestyle easier and doubles the amount of weight you would lose compared to doing the lifestyle change without the surgery. You will need to be on a liquid diet with protein shakes for 2 weeks before surgery to maximize weight loss and boost your nutritional status to recover better from surgery and also for the first two weeks after surgery to let the stomach heal before we introduce other foods. After the first 2 weeks we will introduce protein bars and soft foods like scrambled eggs, cottage cheese and yogurt and after the 6th week will introduce meat, fish and cooked vegetables in small amounts. Over time you should be able to eat everything in small amounts. Side effects like nausea, vomiting, heartburn or abdominal pain are not common in the practice unless you are not following in the practice. This operation requires lifetime commitment to following in our practice and communication with me. You will much less weight and experience side effects if you don?t communicate or not following in the practice. Complications are rare and in our practice is about 1/10 of the national average. However, you can develop bleeding that may require transfusion (hasn?t happened for year in the practice), you may from complications (we did not have any deaths in the practice) and infections. Infections are usually a result of breakdown in communication or not understanding or following directions correctly. They are difficult to treat, they can happen during the first 6 weeks, they may require to be in the hospital for weeks or even months, not being able to eat by mouth and you may have drains and surgeries to try and correct the issue. Other risks and complications include possible conversion to an open procedure, leaks, small bowel obstruction, blood clots, cardiac, or pulmonary complications, as care home complications such as ulcers, insufficient weight loss and vitamin deficiencies. 2. You will receive a link of our software ruby to generate an individualized nutritional and exercise plan specific for you. Please send me a screenshot of the plans you will generate Meal to include lean meat (beef, fish, pork, turkey, chicken), or belizean yogurt, or egg whites, or beans with a salad with olive oil and fruits (berries, pears, apples, kiwi). Avoid salt, breads, potatoes, rice, pasta, desserts. ?3. If you choose shakes, each shake would be drunk slowly, like coffee in a period of 2 hours. ?4. If you choose bars, cut each bar in 4 pieces and eat each piece in 30min ?to make each bar last 2 hours. ?5. I emphasized the importance of measuring accurately the food portion and measure it when serving the food in plate ?6. The meal portions include a specific number of forks of meat and salad. You always eat the meat portion but you can replace up to half of salad/vegetables portion with rice, potatoes or pasta, or a fruit ?if you like. The less you do it the better weight loss will be. ?7. One full-size fork is what it can be scooped on the fork without falling aside and not what can be bit with the fork. Use regular forks like those you find in a typical restaurant. ?8.? Please buy the body composition scale we discussed and send me weight measurements as soon as possible and then once a week. Always include your diet and exercise plan. 9. The best choice would be to purchase a stationary bike, elliptical or treadmill at home that can track calories. Let me know if you do so I can give you an exercise plan. ?10.?It is important of avoiding and for at least 18 months postoperatively and has been discussed at the infosession. ?11. Goal is to lose at least 1.5-2lbs per week ?12. Goal to lose 10% of your weight before surgery, which is about 37lbs. Ultimate weight goal: 328lbs before surgery 13. Please follow the diet plan exactly without any change. If you don't like something about the plan or you feel hungry you need to communicate with me so I can help you revise the plan. You should not change the plan yourself. 14. To be scheduled for EGD due to the history of GERD. The possibility of biopsies was discussed. Patient needs to avoid use of NSAIDs and aspirin for 1 week prior to EGD. You must be on liquids only the day before your endoscopy. Risks of perforation and bleeding was discussed with the patient. This will be an outpatient procedure with IV sedation.
[2025-01-17 09:04] VITALS: BMI 59.0
== END 2025-01-17 09:37 | disposition home or self-care (01) ==
LOC: HO.HBS 07:58
PROVIDERS: PCP Nurse Practitioner Primary Care; Visit Provider Surgery
DX: E66.813 Obesity, class 3 (principal); Z68.43 Body mass index [BMI] 50.0-59.9, adult
CPT/HCPCS: 99204

== ENCOUNTER 2025-01-31 07:52 | Outpatient (AMB) | payer OTHER, SELFPAY ==
--- NOTE | 2025-01-31 07:52 | MHC.OFFVIS ---
Intake Visit Reasons: TV Colpo results/EMB results/ok per [place] Allergies Penicillins Allergy (Verified 01/17/25 08:54) Unknown HPI Comments Details: The patient scheduled a telehealth visit for follow-up to discuss the results of colpo results and her abnormal uterine bleeding workup and options of treatment. The following workup was done.: H&H= TSH, prolactin, hCG, GC and chlamydia were negative. Testosterone total and free and 17 hydroxyprogesterone within normal Colposcopy/biopsy/ECC with Endometrial biopsy pathology showed the following: A. Endocervix, curettage: Superficial strips of endocervical epithelium within normal limits; mucoinflammatory material. B. Cervix, 4 o'clock, biopsy: - Low-grade squamous intraepithelial lesion (AWA 1). - No endocervical epithelium identified. C. Cervix, 6 o'clock, biopsy: - Low-grade squamous intraepithelial lesion (AWA 1). - Background inflamed cervical transformation zone mucosa. D. Cervix, 12 o'clock, biopsy: - Low-grade squamous intraepithelial lesion (AWA 1). - Background inflamed cervical transformation zone mucosa. E. Endometrium, biopsy: Inactive endometrium with pseudodecidual change (consistent with exogenous progestin) and breakdown; no atypia or hyperplasia identified Co testing was done in 02/04 and was ascus/HPV negative. Pelvic ultrasound showed the following: Impression: 1. Limited exam due to patient's body habitus. 2. Well-defined endometrium at 7 mm homogeneous in echotexture with no hyperemia. 3. Right ovary not identified. Normal sonographic appearance left ovary. No adnexal masses. [facility] Medical History (Updated 01/31/25 @ 08:34 by Chaim Aguilar MD) Hypertension Anxiety Depression Morbid obesity LGSIL on Pap smear of cervix GERD (gastroesophageal reflux disease) No known health problems Family History (Updated 01/13/25 @ 08:21 by BUBBA Rueda) Mother Diabetes Sleep apnea Maternal Grandfather Diabetes Sister Diabetes Paternal Grandmother HTN (hypertension) Paternal Aunt HTN (hypertension) Social History Alcohol intake: never Patient Tobacco Use Status: Never used Tobacco Female Reproductive History Menstrual Age of Menarche: 16 Telehealth Telehealth Telehealth Platform: Telephone Location of provider rendering services: practice address Location of patient: address on file Patient Identification confirmed using: Name, : Yes Telehealth method: video Patient verbally consented to treatment: Yes Patient verbally consented to billing insurance company: Yes Patient informed of any privacy concerns related to visit: Yes Minutes spent on Phone/Video with Pt.: 12 Assessment & Plan Assessment & Plan (1) Abnormal uterine bleeding (AUB): Comment: PCOS h/o mild HTN Code(s): N93.9 - Abnormal uterine and vaginal bleeding, unspecified Category: Medical Plan: Prometrium prescribed, see below discussion (2) Endometrial hyperplasia without atypia, simple: Comment: Status post Depo-Provera in 10/06, on Provera 20 mg q.d. x3 months Code(s): N85.01 - Benign endometrial hyperplasia Category: Medical Plan: The patient is interested in conception therefore does not want control pills or Mirena IUD. Explained to the patient that Mirena IUD would be the most effective in reversing endometrial hyperplasia. Will prescribe Prometrium 200 mg p.o. q.d. day 14-25 cyclicly repeat EMB in 3 months. Instructions given the patient to call in case of abnormal uterine bleeding recur and to schedule a 3 months med follow-up/ EMB appointment. All questions answered, the patient verbalized understanding (3) Dysplasia of cervix, low grade (AWA 1): Comment: Since 10/06 Code(s): N87.0 - Mild cervical dysplasia Category: Medical Plan: Discussed with the patient the pathology results of the colposcopy biopsies & endocervical curettage ( mild dysplasia-AWA 1). Discussed with the patient the sensitivity specificity, positive and negative predictive value in detecting cervical cancer in addition discussed the regression, persistence and progression rates. Recommended co-testing in 12 months, if cytology and or HPV are abnormal will proceed was colposcopy biopsy and endocervical curettage, if lesions gets worse or stays persistent for 2 years will proceed with loop electric excision procedure. Instructions given to the patient to schedule a co test appointment in 1 year. All questions answered the patient verbalized understanding. (4) PCOS (polycystic ovarian syndrome): Code(s): E28.2 - Polycystic ovarian syndrome Category: Medical Plan: Discussed with the patient the results of her blood work included TSH, prolactin, testosterone, 17 hydroxyprogesterone . Explained to the patient that she has a diagnosis of PCOS. D/w the patient the association of PCOS with an increase in the risk of diabetes or pre diabetes, heart disease, hypercholesterolemia and metabolic syndrome, endometrial hyperplasia and/or cancer if untreated and an increase in the risk of breast cancer. Recommended for the patient the following: -To call her pcp to screen for cardiovascular risk and diabetes with FBS and 2 hr GTT after 75 g OGTT, in addition to cholesterol, lipids, HDL and LDL. -Instructions given to patient to increase exercise combined with dietary changes reduce the risk of diabetes, explained to the patient that reduction in body weight has been associated with improved rate and decreased hirsutism as well as improvement in glucose tolerance and lipid levels -For her Menstrual cycle control: Discussed with the patient the following options of treatment : Combination low-dose hormonal contraceptives are recommended as the primary treatment for menstrual disorder Or Progestins: Cyclic progesterone versus Mirena IUD No studies have addressed the long-term use of depot medroxyprogesterone acetate and intermittent oral medroxyprogesterone acetate to treat hirsutism. The regimen of cyclic oral progestin therapy is less well studied and is not a method of control or progestin-containing intrauterine devices that most effectively prevent endometrial cancer in women with PCOS . After discussion all the pros and cons risks benefits of each were discussed with the patient, the patient decided to proceed Prometrium. The patient is interested in future fertility will prescribe Prometrium 200 mg p.o. q.d. day 15-24 for 3 months and follow-up in 3 months. Instructions given the patient to schedule a three-month follow-up appointment with repeat EMB. -If the patient is interested in will send pt for a consult to reproductive endocrinology. All questions answered. Pt verbalized understanding I spent a total of 20 minutes reviewing the chart, talking to the patient via video and documenting in the medical record. Medications: New progesterone micronized (Prometrium) Take the pill 1 tablet a day cyclically every month from day 15-24 day 1 being the 1st day of next menstrual cycle 200 mg PO BEDTIME 10 days 30 caps 0RF Coding Level of Care Code Tele Est Pt Level 3 (46338) Diagnoses Abnormal uterine bleeding (AUB) N93.9 Endometrial hyperplasia without atypia, simple N85.01 Dysplasia of cervix, low grade (AWA 1) N87.0 PCOS (polycystic ovarian syndrome) E28.2
== END 2025-01-31 08:55 | disposition home or self-care (01) ==
LOC: HO.HWS 07:52
PROVIDERS: PCP Nurse Practitioner Primary Care; Visit Provider Obstetrics & Gynecology
DX: N93.9 Abnormal uterine and vaginal bleeding, unspecified (principal); N87.0 Mild cervical dysplasia; E28.2 Polycystic ovarian syndrome
CPT/HCPCS: 99213

== ENCOUNTER → 2025-01-31 07:52 | Outpatient (BNVA) | payer OTHER, SELFPAY | PROVIDERS: PCP Nurse Practitioner Primary Care; Visit Provider Obstetrics & Gynecology ==